=== PATIENT | female | born 1935 | race Caucasian/White ===

== ENCOUNTER 2017-08-24 12:23 | Inpatient (IN) ==
--- NOTE | 2017-08-24 13:13 | Emergency Department Note ---
Disposition Clinical Impression: Confusion Syncope Qualifiers: Syncope type: unspecified Qualified Code(s): R55 - Syncope and collapse Fall Qualifiers: Encounter type: initial encounter Qualified Code(s): W19.XXXA - Unspecified fall, initial encounter Disposition: Admitted As Inpatient Condition: Fair Referrals: Dionna Toney CNP [Primary Care Provider] - Forms: ED Satisfaction Letter Time of Disposition: 15:58 Fall HPI - General Chief Complaint: ED Fall Stated Complaint: fall Time Seen by Provider: 08/24/17 12:29 Source: patient, EMS Mode of arrival: EMS Limitations: no limitations Nursing Notes Reviewed: Yes Vital Signs Reviewed: Yes - History of Present Illness HPI Narrative: Patient presents emergency room by EMS for evaluation of a fall at home. Patient does not remember the event. She has not does remember calling EMS for transportation. She lives at home with her the is not here. She denies any headache injury or pain or symptoms at this time. EMS said that when they arrived she was awake denying any other acute symptoms or issues. The family was concerned and wanted her evaluated here in the emergency room. Patient denies any issues on arrival here Pt Subjective Complaint: fall Onset (ago): [employer] Fall From: standing Fall Witnessed: no Place Fall Occurred: home Loss of Consciousness: unsure Prolonged Down Time?: no Context: tripped/slipped Severity: none Severity scale (1-10): 0 Associated symptoms (after fall): Reports: denies - Related Data Allergies Allergy/AdvReac Type Severity Reaction Status Date / Time No Known Allergies Allergy Verified 08/24/17 12:30 All systems ED: reviewed and negative except as stated. Review of Systems: As Per HPI Constitutional: Denies: fever, chills Eyes: Denies: eye pain Cardiovascular: Denies: chest pain, palpitations, dyspnea on exertion Respiratory: Denies: cough, dyspnea, wheezes Gastrointestinal: Denies: abdominal pain, nausea, vomiting, diarrhea Genitourinary: Denies: urgency, dysuria Musculoskeletal: Denies: back pain, neck pain Neurological: Denies: headache Fall PMH - Past Medical History Medical history: Reports: diabetes, hypertension Psychiatric history: Reports: no psych history - Social History Smoking Status: Never smoker Alcohol use: Reports: none Drug use: Reports: none Physical Exam - General Limitations: altered mental status General appearance: alert - Head Head exam: atraumatic, normocephalic, normal inspection - Eye Eye exam: Present: normal appearance, PERRL, EOMI. Absent: miosis, mydriasis - ENT ENT exam: normal exam, normal oropharynx, mucous membranes moist - Neck Neck exam: Present: normal inspection, full ROM, trachea midline. Absent: tenderness, meningismus, lymphadenopathy - Chest Chest inspection: Present: normal inspection, symmetric chest wall rise. Absent : tenderness - Respiratory Respiratory exam: Present: normal lung sounds bilaterally. Absent: respiratory distress, accessory muscle use - Cardiovascular Cardiovascular exam: Present: regular rate, normal rhythm, normal heart sounds - Abdominal Exam Abdominal exam: Present: soft, Non-Tender, normal bowel sounds. Absent: tenderness, distention, guarding, rebound, rigidity, Ventura's sign, Rovsing's sign, tenderness at McBurney's Point - Extremities Exam Extremities exam: Present: normal inspection, full ROM, normal capillary refill. Absent: tenderness, pedal edema - Back Exam Back exam: Present: normal inspection, full ROM. Absent: tenderness - Neurological Exam Neurological exam: Present: alert, CN II-XII intact, normal gait, other - Skin Skin exam: Present: warm, dry, intact, normal color Course Course Narrative: Patient seen and examined the time of arrival by EMS. See history of present illness. 82-year-old female presents emergency room for evaluation of a fall at home. EMS present to the house and found the patient in the bathroom sitting on the floor but awake. Patient does not remember the event and feels like she may have passed out. She is overdoing like this before. Patient has no visible signs of trauma or injury. Vital signs throughout transported by EMS for otherwise unremarkable. Accu-Chek was 313. On arrival here the patient is alert and follows commands appropriately. She is slightly confused to time and place. Patient is able to converse and answer questions here about her name and birthdate. Repeat vital signs at presentation are otherwise stable. Accu-Chek is normal at 240. Patient's physical exam shows a well- appearing female she denies any symptoms or complaints head is atraumatic pupils are equal and reactive no visible signs of facial asymmetry. Cranial nerves II through XII are grossly intact. Patient moves the upper and lower extremities without any difficulty. There is no signs of cerebellar dysfunction or draft. Patient's oropharynx is patent trachea is midline. Lungs are clear heart is regular. No tenderness to palpation over the bilateral shoulders chest wall or abdomen. Pelvis appears to be stable no tenderness or pain in the extremities at this time. No visible signs of hematoma or injury to the scalp. Patient has no midline cervical thoracic or lumbar spine pain at this point as well. No family is with her at this time to differentiate whether the patient's chronic dementia or this is baseline for her at this point. Patient will have CT of the head as well as cervical spine completed along with screening labs including chest x-ray EKG CBC chemistry troponin and urinalysis BNP. His concerning based on the presentation for the injury and mechanism of the fall. Patient does describe that she fell secondary to tripping over a log but is difficult to trust that the patient is remembering the events appropriately considering she is not alert to time or place. We will continue to treat symptomatically here in the emergency room until family arrives. Patient does not have any visible signs of strokelike symptom at this point and is describing a mechanical fall at home. EMS discloses that there is nothing out of the ordinary at the hospital this time outside of the head to break into the bathroom and no secondary to issues with hoarding. Patient will be observed her closely and symptomatic treatment will be completed - Reevaluation(s) Reevaluation #1: Cervical spine imaging is concerning for possible right-sided pleural effusion. Because the patient's fall CT imaging the chest will be added on considering she had a negative chest x-ray this point. Patient is otherwise in no distress. Labs are still pending. Time: 13:27 Reevaluation #2: Patient's vital signs remain stable. CT of the head and neck are unremarkable. The pleural effusion that was noted on the CT scan of the neck was reviewed with myself and chest x-ray was also reviewed. There is no visible signs of pneumothorax or active pleural effusion at this point. Patient is at baseline according to the family at this time. The confusion that initially presented on arrival is seems to be resolved. Patient does have a history of cardiac arrhythmia that required defibrillator. She did have the defibrillator removed several years ago and has not had any issues. The fall was unwitnessed by the family. A lengthy discussion was had with them about the presentation context of the symptoms. Seems the patient walked into the bathroom and then fell with unknown etiology. I do not have significant trust in day description the patient had of her tripping over a carpet. I am concerned about potential other etiology causing the syncopal events here today considering she is completely amnestic to the fall and woke up on the floor up against the door. Patient otherwise has no other acute pathology this point. Labs vital signs and physical exam appear to be unchanged. Patient will be admitted for syncopal evaluation with a history of cardiac arrhythmia as well as possible stroke. We will continue to monitor here to the admission process is completed. Dr. Veliz reviewed the presentation symptoms in the case and no other recommendations at this time. Patient will be admitted for syncopal evaluation with unknown etiology. She does have a history of cardiac arrhythmia as well as unknown etiology to the fall here today. Disposition will be admission this time. We will continue monitor here in the emergency room to the admission process is completed. Family informed and they are comfortable with the projected course of care this time Time: 16:34 Vital Signs Pulse Rate 94 08/24/17 12:30 Respiratory Rate 20 08/24/17 12:30 Blood Pressure 191/101 08/24/17 12:30 O2 Sat by Pulse Oximetry 95 08/24/17 12:30 Temperature 97.9 F 08/24/17 12:31 Pulse Rate 83 08/24/17 15:30 Respiratory Rate 20 08/24/17 15:30 Blood Pressure 167/90 08/24/17 15:30 O2 Sat by Pulse Oximetry 97 08/24/17 15:30 Oxygen Delivery Oxygen Delivery Room Air Fall - MDM Narrative Medical decision making narrative: Fall, confusion - Medical Records Medical records reviewed: Yes I reviewed the patient's medical records. - Lab Data Lab results reviewed: Yes I reviewed the patient's lab results. Result diagrams: 08/24/17 13:08 08/24/17 13:08 Lab Results 08/24/17 08/24/17 08/24/17 Range/Units 13:08 13:08 13:08 WBC 5.5 (4.3-11.1) K/mcL RBC 3.44 L (3.82-4.97) M/mcL Hgb 11.1 L (11.5-15.4) g/dL Hct 34.3 L (35.3-44.9) % MCV 99.7 (83.0-100.0) fL MCH 32.3 (28.0-33.3) pg MCHC 32.4 (31.6-35.5) g/dL RDW 15.3 H (11.5-14.5) % Plt Count 187 (140-400) K/mcL MPV 10.4 (9.4-12.4) fL Immature Gran % 0.4 (0-4) % Seg Neutrophils % 80.9 % Lymphocytes % 10.2 % Monocytes % 7.6 % Eosinophils % 0.2 % Basophils % 0.7 % Neutrophils # 4.5 (1.6-8.9) K/mcL Lymphocytes # 0.6 (0.6-4.6) K/mcL Monocytes # 0.4 (0.0-1.3) K/mcL Eosinophils # 0.0 (0.0-0.6) K/mcL Basophils # 0.0 (0.0-0.2) K/mcL Nucleated RBCs/100 WBC 0.4 H (0) /100 WBC PT 12.7 H (9.4-12.1) Seconds INR 1.2 APTT 32.4 (26.0-36.0) Seconds Sodium 136 (136-145) mEq/L Potassium 3.6 (3.5-5.1) mEq/L Chloride 104 (98-107) mEq/L Carbon Dioxide 20 L (23-29) mEq/L BUN 15 (8-23) mg/dL Creatinine 0.81 (0.60-1.20) mg/dL Est GFR ( Amer) > 60 (> 60) Est GFR (Non-Af Amer) > 60 (> 60) BUN/Creatinine Ratio 19 (6-26) Glucose 300 H (70-105) mg/dL POC Glucose (70-99) mg/dL Calculated Osmolality 294 (280-300) Lactic Acid (0.5-2.2) mmol/L Calcium 8.8 (8.6-10.3) mg/dL Creatine Kinase 65 (30-223) Units/L Troponin I < 0.03 (< 0.04) ng/mL Urine Color (Yellow) Urine Clarity (Clear) Urine pH (5.0-8.0) pH Units Ur Specific [place] (1.010-1.025) Urine Protein (Neg-Trace) mg/dL Urine Glucose (UA) (Normal) mg/dL Urine Ketones (Negative) mg/dL Urine Blood (Negative) Urine Nitrite (Negative) Urine Bilirubin (Negative) Urine Urobilinogen (Normal) mg/dL Ur Leukocyte Esterase (Negative) Urine Microscopic RBC (0-3) per hpf Urine Microscopic WBC (0-3) per hpf Ur Squamous Epith Cells (None-Few) per lpf Urine Bacteria (None-Few) per hpf Hyaline Casts (None-Few) per lpf 08/24/17 08/24/17 08/24/17 Range/Units 13:08 13:20 14:25 WBC (4.3-11.1) K/mcL RBC (3.82-4.97) M/mcL Hgb (11.5-15.4) g/dL Hct (35.3-44.9) % MCV (83.0-100.0) fL MCH (28.0-33.3) pg MCHC (31.6-35.5) g/dL RDW (11.5-14.5) % Plt Count (140-400) K/mcL MPV (9.4-12.4) fL Immature Gran % (0-4) % Seg Neutrophils % % Lymphocytes % % Monocytes % % Eosinophils % % Basophils % % Neutrophils # (1.6-8.9) K/mcL Lymphocytes # (0.6-4.6) K/mcL Monocytes # (0.0-1.3) K/mcL Eosinophils # (0.0-0.6) K/mcL Basophils # (0.0-0.2) K/mcL Nucleated RBCs/100 WBC (0) /100 WBC PT (9.4-12.1) Seconds INR APTT (26.0-36.0) Seconds Sodium (136-145) mEq/L Potassium (3.5-5.1) mEq/L Chloride (98-107) mEq/L Carbon Dioxide (23-29) mEq/L BUN (8-23) mg/dL Creatinine (0.60-1.20) mg/dL Est GFR ( Amer) (> 60) Est GFR (Non-Af Amer) (> 60) BUN/Creatinine Ratio (6-26) Glucose (70-105) mg/dL POC Glucose 265 H (70-99) mg/dL Calculated Osmolality (280-300) Lactic Acid 1.6 (0.5-2.2) mmol/L Calcium (8.6-10.3) mg/dL Creatine Kinase (30-223) Units/L Troponin I (< 0.04) ng/mL Urine Color Yellow (Yellow) Urine Clarity Clear (Clear) Urine pH 6.0 (5.0-8.0) pH Units Ur Specific [place] 1.023 (1.010-1.025) Urine Protein >=300 H (Neg-Trace) mg/dL Urine Glucose (UA) >=1000 H (Normal) mg/dL Urine Ketones Trace H (Negative) mg/dL Urine Blood Trace H (Negative) Urine Nitrite Negative (Negative) Urine Bilirubin Negative (Negative) Urine Urobilinogen 4.0 H (Normal) mg/dL Ur Leukocyte Esterase Negative (Negative) Urine Microscopic RBC 3-5 H (0-3) per hpf Urine Microscopic WBC 0-3 (0-3) per hpf Ur Squamous Epith Cells Many H (None-Few) per lpf Urine Bacteria None Seen (None-Few) per hpf Hyaline Casts None Seen (None-Few) per lpf - Radiology Data Radiology results reviewed: Yes I reviewed the patient's radiology results. CT of the head and neck are unremarkable this time. Cranial pathology or cervical spine fracture. Chest x-ray does not show any acute signs of pneumothorax or pleural effusion. CT of the cervical spine did comment on possible right-sided apical pleural effusion. - EKG Data EKG attestation: Yes I reviewed and interpreted this EKG. EKG results narrative: EKG shows what appears to be sinus rhythm with first-degree heart block. Ventricular rate of 84. AL interval is greater than 200. [place] appears to be slightly leftward deviated. QRS duration of 160. QTC of 508. This is most likely accounting for where the P-wave butts up against the QRS and T wave. This is reviewed and compared to an EKG on 01/21/14 the patient does have a first-degree heart block. The morphology and intervals appear to be all chronic in nature. No acute signs of ST segment elevation or abnormality. No acute signs of WPW or Brugada syndrome.
[2017-08-24 13:26] LABS: Basophils % 0.7 %; Eosinophils % 0.2 %; Hematocrit 34.3 % (35.3-44.9); Hemoglobin 11.1 g/dL (11.5-15.4); Immature Granulocytes % 0.4 % (0-4); Lymphocytes # 0.6 K/mcL (0.6-4.6); Lymphocytes % 10.2 %; Mean Corpuscular HGB Conc 32.4 g/dL (31.6-35.5); Mean Corpuscular Hemoglobin 32.3 pg (28.0-33.3); Mean Corpuscular Volume 99.7 fL (83.0-100.0); Mean Platelet Volume 10.4 fL (9.4-12.4); Monocytes # 0.4 K/mcL (0.0-1.3); Monocytes % 7.6 %; Neutrophils # 4.5 K/mcL (1.6-8.9); Nucleated Red Blood Cells 0.4 /100 WBC (0); Platelet Count 187 K/mcL (140-400); Red Blood Count 3.44 M/mcL (3.82-4.97); Red Cell Distribution Width 15.3 % (11.5-14.5); Segmented Neutrophils % 80.9 %
[2017-08-24 13:35] LABS: INR 1.2; Prothrombin Time 12.7 Seconds (9.4-12.1)
[2017-08-24 13:38] LABS: Activated Partial Thrombo Time 32.4 Seconds (26.0-36.0)
[2017-08-24 13:44] LABS: Troponin I < 0.03 ng/mL (< 0.04)
[2017-08-24 13:52] LABS: BUN/Creatinine Ratio 19 (6-26); Blood Urea Nitrogen 15 mg/dL (8-23); Calcium 8.8 mg/dL (8.6-10.3); Carbon Dioxide 20 mEq/L (23-29); Chloride 104 mEq/L (98-107); Creatine Kinase 65 Units/L (30-223); Glucose 300 mg/dL (70-105); Osmolality,Calculated 294 (280-300); Potassium 3.6 mEq/L (3.5-5.1); Sodium 136 mEq/L (136-145); eGFR For African Americans > 60 (> 60); eGFR For Non-African Americans > 60 (> 60)
[2017-08-24 14:33] LABS: Bilirubin,Urine Negative (Negative); Blood,Urine Trace (Negative); Clarity,Urine Clear (Clear); Color,Urine Yellow (Yellow); Glucose,Urine (UA) >=1000 mg/dL (Normal); Ketones,Urine Trace mg/dL (Negative); Leukocyte Esterase,Urine Negative (Negative); Nitrite,Urine Negative (Negative); Protein,Urine >=300 mg/dL (Neg-Trace); Specific Gravity,Urine 1.023 (1.010-1.025)
[2017-08-24 14:35] LABS: Bacteria,Urine None Seen per hpf (None-Few); Hyaline Casts,Urine None Seen per lpf (None-Few); Squamous Epithelial Cell,Urine Many per lpf (None-Few); WBC,Urine 0-3 per hpf (0-3)
[2017-08-24] MEDS ORDERED: D5% in Water 1,000 ML IVC PRN (17:58)
[2017-08-24] MEDS ORDERED: Dextrose Gel 15 GM/37.5 ML TUBE PO PRN ×2 (17:58)
[2017-08-24] MEDS ORDERED: *HR* Dextrose 50 % in Water (Syg) 50 ML SYRINGE IVP PRN (17:58)
--- NOTE | 2017-08-24 18:07 | Internal Med History&Physical ---
Date of Encounter: 08/24/17 Time of Encounter: 18:06 Internal Medicine - H&P: HPI Chief complaint: syncope History of present illness: Ms. Johnson is a 82 year old female with history of diabetes, cardiomyopathy, hypertension, hyperlipidemia who presents with unwitnessed syncope event at home. She lives at home with her daughter and and is typically independent of any assistance. She was last seen normal the night before but this morning she was found down in the bathroom with a body blocking the door entrance. It was thought that this incident happened at about 10 AM in the morning. It appeared that she might have had syncopal event leading to the fall. Family had to break through the window to get the bathroom in order to get her out. On evaluation in the ED, patient was noted to be confused not knowing where she was or her home address. Reviewed echo on 06/13/17 with LVEF 25-30%. On review of history, family reports that she had a defibrillator placed previously but had been removed approximately 3 years ago for unknown reason EKG personally reviewed with rate 84, left bundle branch block unchanged from prior FINDINGS: BRAIN/VENTRICLES: There is no acute intracranial hemorrhage, mass effect or midline shift. No abnormal extra-axial fluid collection. The farnsworth-white differentiation is maintained without evidence of an acute infarct. There is no evidence of hydrocephalus. Age-appropriate atrophy and small-vessel disease ischemic changes. ORBITS: The visualized portion of the orbits demonstrate no acute abnormality. SINUSES: The visualized paranasal sinuses and mastoid air cells demonstrate no acute abnormality. Mild left maxillary thickening. SOFT TISSUES/SKULL: No acute abnormality of the visualized skull or soft tissues. CT/CT head/brain wo con IMPRESSION: No acute intracranial abnormality. Age-appropriate atrophy and small-vessel disease ischemic changes. CT/CT cervical spine wo con IMPRESSION: No acute abnormality of the cervical spine. Right-sided pleural effusion FINDINGS: Multifocal increased parenchymal markings appear to be chronic. No focal consolidation. No pleural effusion or pneumothorax. The heart is enlarged without pulmonary vascular congestion. XR/XR chest 1V portable IMPRESSION: Cardiomegaly. No focal consolidation. Past Med Surg Social Fam HX - Past Medical History Medical history: diabetes, hypertension Psychiatric history: no psych history - Past Surgical History Surgical History: cholecystectomy, hysterectomy - Social History Smoking Status: Never smoker Smokeless Tobacco Status: No Alcohol use: none Drug use: none Internal Medicine - H&P: Meds Aspirin [Lo-Dose Aspirin EC] 81 mg PO DAILY 08/24/17 [History] Carvedilol [Coreg] 25 mg PO BID 08/24/17 [History] Ezetimibe [Zetia] 10 mg PO DAILY 08/24/17 [History] Glimepiride [Amaryl] 4 mg PO BID 08/24/17 [History] Lisinopril [Zestril] 5 mg PO DAILY 08/24/17 [History] Pioglitazone HCl [Actos] 30 mg PO DAILY 08/24/17 [History] Rosuvastatin [Crestor] 20 mg PO HS 08/24/17 [History] SitaGLIPtin [Januvia] 100 mg PO DAILY 08/24/17 [History] Spironolactone [Aldactone] 25 mg PO DAILY 08/24/17 [History] Zolpidem [Ambien] 10 mg PO HS 08/24/17 [History] 3 Allergy/AdvReac Type Severity Reaction Status Date / Time No Known Allergies Allergy Verified 08/24/17 12:30 All Systems PM: A 10-system review of systems was performed and is negative for pertinent findings except as documented above in the HPI. Review of systems: ROS 14 point review of systems reviewed as best as possible given presentation. Pertinent positive or negative as per HPI or otherwise reviewed as negative - Constitutional Vitals: Temp Pulse Resp BP Pulse Ox 98.5 F 88 18 146/90 97 08/24/17 17:46 08/24/17 17:46 08/24/17 17:46 08/24/17 17:46 08/24/17 17:46 Exam: General - patient appears confused Psych - Appropriate affect/speech. No agitation Eyes - CONOR. Eye lids intact. No scleral icterus Neuro - No gross peripheral or central neuro deficits on inspection. Generalized upper and lower extremity weakness 4 minus out of 5 power Heart - Sinus. RRR. S1 and S2 present. No added HS/murmurs appreciated. No elevated JVD appreciated. Lung - Adequate air entry b/l, No crackles/wheezes appreciated GI - abdominal surgical scars. Soft, non-tender. No hepatosplenomegaly/ ascites. BS+ - No CVA/suprapubic tenderness or palpable bladder distension Skin - Intact. No rash/petechiae/ecchymosis. Warm extremities MSK - Joints with normal ROM. No joint swellings Internal Med - H&P Results - Labs CBC & Chem 7: 08/24/17 13:08 08/24/17 13:08 - Assessment and plan (1) Syncope Current Visit: Yes Status: Acute Assessment and plan: to get cardiac and neuro work up consult cards to assist with eval and optimization - reported hx of defibrillator prior due to Cardiomyopathy but this was removed ? for unknown reason ? Tele while inpatient MRI , carotid doppler US orthostat Qualifiers: Syncope type: unspecified Qualified Code(s): R55 - Syncope and collapse (2) Confusion Current Visit: Yes Status: Acute Assessment and plan: uncertain etiology check MRI brain and US doppler of carotids as w/u for RIND/TIA or occult vascular event (3) Cardiomyopathy Current Visit: Yes Status: Acute Assessment and plan: TTE 06/13/17 with LVEF 25-30% on ACEI , BB, aldactone Qualifiers: Cardiomyopathy type: other Qualified Code(s): I42.8 - Other cardiomyopathies (4) DMII (diabetes mellitus, type 2) Current Visit: Yes Status: Acute Qualifiers: Chronic kidney disease stage: stage 3 (moderate) Qualified Code(s): E11.22 - Type 2 diabetes mellitus with diabetic chronic kidney disease; N18.3 - Chronic kidney disease, stage 3 (moderate); Z79.4 - correction (current) use of insulin (5) HTN (hypertension) Current Visit: Yes Status: Acute Assessment and plan: continue cardiac meds Qualifiers: Hypertension type: essential hypertension Qualified Code(s): I10 - Essential (primary) hypertension (6) Fall Current Visit: Yes Status: Acute Assessment and plan: clinical exam w/o evidence of focal trauma PT/OT monitor and watch for further localizing symptoms Qualifiers: Encounter type: initial encounter Qualified Code(s): W19.XXXA - Unspecified fall, initial encounter - Time Spent With Patient Total time spent is greater than 50% in coordination of care (as documented) at patient's floor/unit and/or counseling patient:
--- NOTE | 2017-08-24 18:46 | Cardiology Consult Note ---
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 On appropriate medical management seems to be euvolemic on exam with no recent complaints of chest pain, shortness of breath, orthopnea, or PND. This fall was unwitnessed the patient did not suffer any injuries. Previous ICD was removed due to infection and erosion through the skin. We will discuss with family possibility of reinsertion of an ICD as this may or may not have been an event with her nonischemic cardio myopathy and ejection fraction below 35%. Initial labs unremarkable Qualifiers: Cardiomyopathy type: unspecified Qualified Code(s): I42.9 - Cardiomyopathy , unspecified Discussion w patient/family: The assessment and plan as outlined above was discussed with the patient and/or family members who expressed understanding and agreement. All questions were answered. Thank you for involving us in the care of your patient. Please call with any questions. History of Present Illness Consult date: 08/24/17 Consult reason: Fall and confusion Chief complaint: Confusion History of present illness: Ms. Johnson is a 82 year old female with history of nonischemic cardio myopathy and recent removal of her ICD due to skin erosion and infection. Her ejection fraction had previously improved to a normal. Last echocardiogram June 2017 shows an ejection fraction of 25-30%. Her last heart catheter was 2014 with minimal coronary artery disease. Currently she is hyperglycemic and confused. Patient was found behind the bathroom door presumed to be a fall with no injury sustained but unwitnessed. Patient currently alert and oriented zero, unable to explain her event. Past Med Surg Social Fam HX - Past Medical History Medical history: diabetes, hypertension Psychiatric history: no psych history - Past Surgical History Surgical History: cholecystectomy, hysterectomy - Social History Smoking Status: Never smoker Smokeless Tobacco Status: No Alcohol use: none Drug use: none Medications and Allergies Aspirin [Lo-Dose Aspirin EC] 81 mg PO DAILY 08/24/17 [History] Carvedilol [Coreg] 25 mg PO BID 08/24/17 [History] Ezetimibe [Zetia] 10 mg PO DAILY 08/24/17 [History] Glimepiride [Amaryl] 4 mg PO BID 08/24/17 [History] Lisinopril [Zestril] 5 mg PO DAILY 08/24/17 [History] Pioglitazone HCl [Actos] 30 mg PO DAILY 08/24/17 [History] Rosuvastatin [Crestor] 20 mg PO HS 08/24/17 [History] SitaGLIPtin [Januvia] 100 mg PO DAILY 08/24/17 [History] Spironolactone [Aldactone] 25 mg PO DAILY 08/24/17 [History] Zolpidem [Ambien] 10 mg PO HS 08/24/17 [History] 3 Allergy/AdvReac Type Severity Reaction Status Date / Time No Known Allergies Allergy Verified 08/24/17 12:30 All Systems Review: The remainder of the systems were reviewed and are negative Physical Examination Vital Signs, Last 4 Hours Temp Pulse Resp BP Pulse Ox 08/24/17 17:46 98.5 F 88 18 146/90 97 08/24/17 16:59 20 165/146 General: Conversant, No Apparent Distress HEENT: Atraumatic, Normocephaly, Mucus Membranes Moist Neck: No JVD, Normal carotid pulses Cardiac: Reg Rate and Rhythm, Normal S1 and S2, No Murmur Lungs: Normal Breath Sounds, No Wheeze, Rales, Rhonchi Neuro: Alert and responsive, No focal deficits noted Abdomen: Soft, Non-Tender Skin: No rashes noted on visualized skin Musculoskeletal: No Chest Wall Tenderness Extremities: No Clubbing, No Cyanosis, No Edema, Normal Pulses Results 08/24/17 13:08 08/24/17 13:08 Consult Discharge Plan - Plan Referrals: Dionna Toney CNP [Primary Care Provider] -
[2017-08-24] MEDS ORDERED: Insulin LISPRO 300 UNITS/3 ML VIAL SQ SCH (21:00)
[2017-08-25 02:24] LABS: BUN/Creatinine Ratio 20 (6-26); Blood Urea Nitrogen 13 mg/dL (8-23); Calcium 8.2 mg/dL (8.6-10.3); Carbon Dioxide 21 mEq/L (23-29); Chloride 106 mEq/L (98-107); Glucose 154 mg/dL (70-105); Magnesium 1.3 mg/dL (1.6-2.6); Osmolality,Calculated 287 (280-300); Potassium 2.7 mEq/L (3.5-5.1); Sodium 137 mEq/L (136-145); eGFR For African Americans > 60 (> 60); eGFR For Non-African Americans > 60 (> 60)
[2017-08-25 06:49] LABS: Estimated Average Glucose 177 mg/dl; Hemoglobin A1C 7.8 %
[2017-08-25] MEDS ORDERED: *HR* SitaGLIPtin 100 MG TABLET PO SCH (09:00)
[2017-08-25] MEDS: *HR* Pioglitazone 30 MG TABLET PO SCH (09:33)
[2017-08-25] MEDS: *HR* Glimepiride 4 MG TABLET PO SCH ×2 (09:33→17:11)
[2017-08-25] MEDS: Aspirin Enteric Coated 81 MG Tablet PO SCH (09:33)
[2017-08-25] MEDS: Spironolactone 25 MG TABLET PO SCH (09:35)
[2017-08-25] MEDS: Insulin LISPRO 300 UNITS/3 ML VIAL SQ SCH ×3 (09:35→17:11)
[2017-08-25] MEDS: (Ezetimibe [Zetia] 10 MG) PO SCH (09:35)
--- NOTE | 2017-08-25 10:41 | Cardiology Progress Note ---
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 TTE 06/2017 LVEF 25-30%. Severe LV systolic dysfunction appears global with atypical septal motion consistent with bundle branch block. RV is normal in size. Function appears moderately reduced. Severely dilated left atrium. Moderate MR and TR. Severe phtn. 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 Appears to be euvolemic on exam with no recent complaints of chest pain, shortness of breath, orthopnea, or PND. Continue BB, ACEi, Aldactone. Previous ICD was removed due to infection and erosion through the skin. Discussed with Dr. Krishna and family. Outpt follow-up once acute confusion/ issues resolve and can rediscuss possibility another ICD placement. Unclear if fall was a syncopal event and unclear if related to arrhythmia. Cardiology signing off. Reconsult PRN. Qualifiers: Cardiomyopathy type: unspecified Qualified Code(s): I42.9 - Cardiomyopathy , unspecified (2) Fall Current Visit: Yes Status: Acute Unclear if fall was syncopal event. Pt is confused, per family not her baseline. She is unable to recall what happened and there were no witnesses. Detailed above, hx of NICMP that has recurred. EF 25-30%. Hx of ICD removed due to infection. Unable to rule out cardiac cause of fall or possible syncope. Re-discuss ICD as outpt once acute confusion resolves. Cardiology signing off. Reconsult PRN. Qualifiers: Encounter type: initial encounter Qualified Code(s): W19.XXXA - Unspecified fall, initial encounter (3) Hypokalemia Current Visit: Yes Status: Acute K 2.7. Replace. Management per primary team. Discussion w patient/family: The assessment and plan as outlined above was discussed with the patient and/or family members who expressed understanding and agreement. All questions were answered. Thank you for involving us in the care of your patient. Please call with any questions. I will discuss all the above with Dr. Krishna and make changes as necessary. Subjective Principal diagnosis: confusion, fall Interval history: Pt denies acute complaints, still somewhat confused. Alert to person and place, not time. Denies chest pain, dizziness or dyspnea. No events on telemetry. Objective Vital Signs Temp Pulse Resp BP Pulse Ox 08/25/17 06:38 97.8 F 75 18 153/71 95 08/25/17 02:52 97.5 F L 75 16 151/76 93 08/24/17 23:50 97.5 F L 76 18 116/67 97 08/24/17 20:50 98.1 F 79 18 158/88 95 08/24/17 17:46 98.5 F 88 18 146/90 97 08/24/17 16:59 20 165/146 08/24/17 16:00 87 20 136/69 100 08/24/17 15:30 83 20 167/90 97 08/24/17 14:30 83 20 144/78 98 08/24/17 14:00 89 20 163/100 94 08/24/17 13:34 96 20 166/96 100 08/24/17 13:26 99 08/24/17 13:00 85 20 176/98 92 08/24/17 12:31 97.9 F 85 20 181/101 99 08/24/17 12:30 94 20 191/101 93 Intake and Output 08/24/17 08/25/17 08/25/17 23:59 07:59 15:59 Intake Total 30 / 30 0 / 0 Output Total 0 / 0 0 / 0 Balance 30 / 30 0 / 0 Intake: Oral 30 / 30 0 / 0 Output: Urine 0 / 0 0 / 0 Other: Stool Size Small Stool Consistency soft # Voids 1 # Urine Diapers 1 1 Weight 59.7 kg 59.8 kg Blood Glucose* 232 191 Patient Weight 08/25/17 23:59 Weight 59.8 kg General: Conversant, No Apparent Distress HEENT: Atraumatic, Normocephaly, Mucus Membranes Moist Neck: No JVD, Normal carotid pulses Cardiac: Reg Rate and Rhythm, Normal S1 and S2, No Murmur Lungs: Normal Breath Sounds, No Wheeze, Rales, Rhonchi Neuro: Alert and responsive, Other (confused) Abdomen: Soft, Non-Tender Skin: No rashes noted on visualized skin Musculoskeletal: No Chest Wall Tenderness Extremities: No Clubbing, No Cyanosis, No Edema, Normal Pulses Results 08/24/17 13:08 08/25/17 01:36 Lab Results 08/25/17 01:36 Sodium 137 Potassium 2.7 L Chloride 106 Carbon Dioxide 21 L BUN 13 Creatinine 0.65 Glucose 154 H Calcium 8.2 L Magnesium 1.3 L Short CBC 08/24/17 Range/Units 13:08 WBC 5.5 (4.3-11.1) K/mcL Hgb 11.1 L (11.5-15.4) g/dL Hct 34.3 L (35.3-44.9) % Plt Count 187 (140-400) K/mcL Neutrophils # 4.5 (1.6-8.9) K/mcL BMP 08/25/17 08/24/17 Range/Units 01:36 13:08 Sodium 137 136 (136-145) mEq/L Potassium 2.7 L 3.6 (3.5-5.1) mEq/L Chloride 106 104 (98-107) mEq/L Carbon Dioxide 21 L 20 L (23-29) mEq/L BUN 13 15 (8-23) mg/dL Creatinine 0.65 0.81 (0.60-1.20) mg/dL Glucose 154 H 300 H (70-105) mg/dL Calcium 8.2 L 8.8 (8.6-10.3) mg/dL Cardiac Enzymes 08/24/17 Range/Units 13:08 Troponin I < 0.03 (< 0.04) ng/mL Urine 08/24/17 Range/Units 14:25 Urine Color Yellow (Yellow) Urine Clarity Clear (Clear) Urine pH 6.0 (5.0-8.0) pH Units Ur Specific [place] 1.023 (1.010-1.025) Urine Protein >=300 H (Neg-Trace) mg/dL Urine Glucose (UA) >=1000 H (Normal) mg/dL Impressions Chest X-Ray 08/24/17 12:41 IMPRESSION: Cardiomegaly. No focal consolidation. D/ / Martínez Nichols / Martínez Nichols Interpreting Provider: Martínez Nichols Cervical Spine CT 08/24/17 12:42 IMPRESSION: No acute abnormality of the cervical spine. Right-sided pleural effusion D/ / Vincent Schulz MD / Vincent Schulz MD Interpreting Provider: Vincent Schulz MD Head CT 08/24/17 12:42 IMPRESSION: No acute intracranial abnormality. Age-appropriate atrophy and small-vessel disease ischemic changes. D/ / 08/24/2017 13:24:35 Jael Ayala MD / ayah Interpreting Provider: Jael Ayala MD Brain MRI 08/24/17 17:56 IMPRESSION: No acute infarct identified. D/ / Leo Tate MD / Leo Tate MD Interpreting Provider: Leo Tate MD Active Medications Aspirin (Aspirin Ec) 81 mg PO DAILY [facility] Stop: 02/24/18 09:01 Last Admin: 08/25/17 09:33 Dose: 81 mg Carvedilol (Coreg) 25 mg PO BIDWM [place] PRN Reason: Protocol Stop: 02/23/18 21:01 Last Admin: 08/25/17 09:33 Dose: 25 mg Dextrose/Water (Dextrose 50% (Syg)) 25 ml IVP AD PRN PRN Reason: Hypoglycemia Stop: 02/23/18 17:59 Glimepiride (Amaryl) 4 mg PO BIDWM [facility] Stop: 02/24/18 08:01 Last Admin: 08/25/17 09:33 Dose: 4 mg Glucagon (Glucagen) 1 mg IM ONCE PRN PRN Reason: Hypoglycemia Stop: 02/23/18 17:59 Glucose (Gluctose) 15 gm PO ONCE PRN PRN Reason: Hypoglycemia Stop: 02/23/18 17:59 Glucose (Gluctose) 30 gm PO ONCE PRN PRN Reason: Hypoglycemia Stop: 02/23/18 17:59 Dextrose (Dextrose 5%) 1,000 mls @ 100 mls/hr IVC .Q10H PRN PRN Reason: HYPOGLYCEMIA Stop: 02/23/18 17:59 Insulin Human Lispro (Humalog) 0 units SQ TIDAC [facility] PRN Reason: Protocol Stop: 02/24/18 07:31 Last Admin: 08/25/17 09:35 Dose: 4 units Insulin Human Lispro (Humalog) 0 units SQ HS [facility] PRN Reason: Protocol Stop: 02/23/18 21:01 Last Admin: 08/24/17 21:56 Dose: 3 unit Lisinopril (Zestril) 5 mg PO DAILY [facility] PRN Reason: Protocol Stop: 02/24/18 09:01 Last Admin: 08/25/17 09:34 Dose: 5 mg Pharmacy Profile Note (Patient Taking Own Medication) 0 each PO DAILY [facility] Stop: 02/24/18 09:01 Last Admin: 08/25/17 09:35 Dose: Not Given Pioglitazone HCl (Actos) 30 mg PO DAILY [facility] Stop: 02/24/18 09:01 Last Admin: 08/25/17 09:33 Dose: 30 mg Rosuvastatin Calcium (Crestor) 20 mg PO HS [facility] Stop: 02/23/18 21:01 Last Admin: 08/24/17 21:56 Dose: 20 mg Sitagliptin Phosphate (Januvia) 50 mg PO DAILY [facility] Stop: 02/24/18 09:01 Last Admin: 08/25/17 09:34 Dose: 50 mg Spironolactone (Aldactone) 25 mg PO DAILY [facility] Stop: 02/24/18 09:01 Last Admin: 08/25/17 09:35 Dose: 25 mg Zolpidem Tartrate (Ambien) 10 mg PO HS [facility] PRN Reason: Protocol Stop: 02/23/18 21:01 Last Admin: 08/24/17 21:56 Dose: 10 mg - Imaging and Cardiology Echo: report reviewed - EKG Interpretation EKG results cardiology: other (12 hr tele AVG HR 72, no significant pauses or arrhythmias noted.) Consult Discharge Plan - Plan Referrals: Dionna Toney, PRODUCT ADVISOR [Primary Care Provider] -
[2017-08-25] MEDS ORDERED: Potassium Chloride Elixir 20 MEQ/15 ML UDC PO ONE (11:58)
[2017-08-25] MEDS ORDERED: Thiamine (B-1) 100 MG in D5% in Water 50 ML IVPB STA (12:00)
--- NOTE | 2017-08-25 12:01 | Internal Med Progress Note ---
Date of Encounter: 08/25/17 Time of Encounter: 09:35 - Assessment and plan (1) Syncope Current Visit: Yes Status: Acute Qualifiers: Syncope type: unspecified Qualified Code(s): R55 - Syncope and collapse (2) Confusion Current Visit: Yes Status: Acute (3) Fall Current Visit: Yes Status: Acute Qualifiers: Encounter type: initial encounter Qualified Code(s): W19.XXXA - Unspecified fall, initial encounter (4) Cardiomyopathy Current Visit: Yes Status: Acute Qualifiers: Cardiomyopathy type: unspecified Qualified Code(s): I42.9 - Cardiomyopathy , unspecified (5) DMII (diabetes mellitus, type 2) Current Visit: Yes Status: Acute Qualifiers: Chronic kidney disease stage: stage 3 (moderate) Qualified Code(s): E11.22 - Type 2 diabetes mellitus with diabetic chronic kidney disease; N18.3 - Chronic kidney disease, stage 3 (moderate) (6) HTN (hypertension) Current Visit: Yes Status: Acute Qualifiers: Hypertension type: essential hypertension Qualified Code(s): I10 - Essential (primary) hypertension (7) Hypomagnesemia Current Visit: Yes Status: Acute (8) Hypophosphatemia Current Visit: Yes Status: Acute (9) Hypokalemia Current Visit: Yes Status: Acute - Time Spent With Patient Plan Replace electrolytes, check bladder scan rule out any urinary retention, gentle hydration, physical therapy and occupational therapy, ambulate patient. Check orthostatic blood pressure, check cortisol level and at a.m.. Monitor electrolytes, monitor for any arrhythmia overnight. Patient is on long-acting sulfonylurea, could be her syncopal episodes secondary to hypoglycemia. Avoid Glimibride on discharge May consider short-acting, patient had low appetite will try to avoid Ambien at bedtime may consider remeron to help with her sleep as well as appetite Total time spent is greater than 50% in coordination of care (as documented) at patient's floor/unit and/or counseling patient: 25 - 35 minutes - Subjective Interval history: Patient denies any chest pain or shortness of breath. Patient denies any dizziness lightheadedness. Patient denies any abdominal pain. Patient does not know she has her last bowel movement. Patient does not know what happened yesterday make her to feel down, she does not have any recollection of what happened - Constitutional Vitals: Temp Pulse Resp BP Pulse Ox 97.4 F L 71 16 167/80 96 08/25/17 11:03 08/25/17 11:03 08/25/17 11:03 08/25/17 11:03 08/25/17 11:03 General appearance: Present: no acute distress - Head Head exam: Present: atraumatic, normocephalic - Neck Neck exam general surgery: Present: supple, trachea midline. Absent: lymphadenopathy - Respiratory Respiratory exam: Present: decreased breath sounds, CTAB, prolonged expiratory phase. Absent: accessory muscle use, rales, rhonchi, wheezes - Cardiovascular Cardiovascular exam: Present: +S1, +S2. Absent: gallop, rubs, systolic murmur - Extremities Exam Extremities exam: Present: warm, radial pulses palpable and symmetrical. Absent : calf tenderness, cyanotic, pedal edema - Neurological Exam Neurological exam: Present: CN II-XII intact, no focal deficits. Absent: pronater drift, facial droop, speech deficit Internal Medicine: Result - Labs CBC & Chem 7: 08/24/17 13:08 08/25/17 01:36 Labs: BMP 08/25/17 01:36 Sodium 137 Potassium 2.7 L Chloride 106 Carbon Dioxide 21 L BUN 13 Creatinine 0.65 Glucose 154 H Calcium 8.2 L - ABG Interpretation ABG results: PT/INR, D-dimer PT 12.7 Seconds (9.4-12.1) H 08/24/17 13:08 - Impressions Impressions Brain MRI 08/24/17 17:56 IMPRESSION: No acute infarct identified. D/ / Leo Tate MD / Leo Tate MD Interpreting Provider: Leo Tate MD Consult Discharge Plan - Plan Referrals: Dionna Toney, SH[employer]VER [Primary Care Provider] -
[2017-08-25] MEDS: *HR* Enoxaparin 40 MG/0.4 ML SYRINGE SQ SCH (13:24)
[2017-08-25] MEDS: Mirtazapine 15 MG TABLET PO SCH (22:36)
[2017-08-25] MEDS: Sennosides/Docusate Sodium TABLET PO SCH (22:36)
[2017-08-26 05:00] LABS: Basophils % 0.4 %; Eosinophils # 0.1 K/mcL (0.0-0.6); Eosinophils % 1.1 %; Hematocrit 33.4 % (35.3-44.9); Hemoglobin 10.8 g/dL (11.5-15.4); Immature Granulocytes % 0.2 % (0-4); Lymphocytes # 0.5 K/mcL (0.6-4.6); Lymphocytes % 10.2 %; Mean Corpuscular HGB Conc 32.3 g/dL (31.6-35.5); Mean Corpuscular Hemoglobin 32.6 pg (28.0-33.3); Mean Corpuscular Volume 100.9 fL (83.0-100.0); Mean Platelet Volume 10.5 fL (9.4-12.4); Monocytes # 0.5 K/mcL (0.0-1.3); Neutrophils # 3.5 K/mcL (1.6-8.9); Nucleated Red Blood Cells 0.4 /100 WBC (0); Platelet Count 153 K/mcL (140-400); Red Blood Count 3.31 M/mcL (3.82-4.97); Red Cell Distribution Width 15.8 % (11.5-14.5); Segmented Neutrophils % 78.1 %
[2017-08-26 05:35] LABS: BUN/Creatinine Ratio 17 (6-26); Blood Urea Nitrogen 13 mg/dL (8-23); Calcium 8.5 mg/dL (8.6-10.3); Carbon Dioxide 23 mEq/L (23-29); Chloride 109 mEq/L (98-107); Glucose 162 mg/dL (70-105); Magnesium 1.8 mg/dL (1.6-2.6); Osmolality,Calculated 294 (280-300); Phosphorous 2.4 mg/dL (2.7-4.5); Potassium 3.5 mEq/L (3.5-5.1); Sodium 140 mEq/L (136-145); eGFR For African Americans > 60 (> 60); eGFR For Non-African Americans > 60 (> 60)
[2017-08-26] MEDS: *HR* Enoxaparin 40 MG/0.4 ML SYRINGE SQ SCH (05:59)
[2017-08-26] MEDS: Insulin LISPRO 300 UNITS/3 ML VIAL SQ SCH ×3 (07:24→16:51)
[2017-08-26] MEDS: *HR* Metformin 850 MG TABLET PO SCH ×2 (08:49→16:56)
[2017-08-26] MEDS: *HR* Pioglitazone 30 MG TABLET PO SCH (08:49)
[2017-08-26] MEDS: Spironolactone 25 MG TABLET PO SCH (08:49)
[2017-08-26] MEDS: Sennosides/Docusate Sodium TABLET PO SCH ×2 (08:49→20:16)
[2017-08-26] MEDS: Aspirin Enteric Coated 81 MG Tablet PO SCH (08:50)
[2017-08-26] MEDS: Thiamine (B-1) 100 MG TABLET PO SCH (08:50)
[2017-08-26] MEDS: (Ezetimibe [Zetia] 10 MG) PO SCH (08:51)
[2017-08-26] MEDS ORDERED: *HR* SitaGLIPtin 100 MG TABLET PO SCH (09:00)
[2017-08-26] MEDS: *HR* GlipiZIDE 5 MG TABLET PO SCH (09:07)
--- NOTE | 2017-08-26 10:48 | Internal Med Progress Note ---
Date of Encounter: 08/26/17 Time of Encounter: 08:40 - Assessment and plan (1) Syncope Current Visit: Yes Status: Acute Assessment and plan: Could be possible secondary to hypoglycemia, could be possible secondary to orthostatic hypotension, cannot rule out arrhythmia with history of systolic heart failure, discussed with cardiology team recommended event monitor, discussed with staff that they cannot do it until tomorrow, discussed with family family want the patient to have event monitor before discharge Qualifiers: Syncope type: unspecified Qualified Code(s): R55 - Syncope and collapse (2) Confusion Current Visit: Yes Status: Resolved (3) Fall Current Visit: Yes Status: Acute Assessment and plan: Physical therapy and occupational therapy, add BETSY hose lower extremity to help with her orthostatic home health on discharge for PTOT at home Qualifiers: Encounter type: initial encounter Qualified Code(s): W19.XXXA - Unspecified fall, initial encounter (4) Cardiomyopathy Current Visit: Yes Status: Acute Assessment and plan: Based on echo done on June 2017 LVEF 25-30%. Severe LV systolic dysfunction appears global with atypical septal motion consistent with bundle branch block. Indeterminate diastolic function. RV is normal in size. Function appears moderately reduced. Severely dilated left atrium. Moderate mitral regurgitation. Moderate tricuspid regurgitation. Severe pulmonary hypertension Now euvolemic. Qualifiers: Cardiomyopathy type: unspecified Qualified Code(s): I42.9 - Cardiomyopathy , unspecified (5) DMII (diabetes mellitus, type 2) Current Visit: Yes Status: Acute Qualifiers: Chronic kidney disease stage: stage 3 (moderate) Qualified Code(s): E11.22 - Type 2 diabetes mellitus with diabetic chronic kidney disease; N18.3 - Chronic kidney disease, stage 3 (moderate) (6) HTN (hypertension) Current Visit: Yes Status: Acute Qualifiers: Hypertension type: essential hypertension Qualified Code(s): I10 - Essential (primary) hypertension (7) Hypomagnesemia Current Visit: Yes Status: Acute (8) Hypophosphatemia Current Visit: Yes Status: Acute (9) Hypokalemia Current Visit: Yes Status: Resolved (10) Iron deficiency anemia Current Visit: Yes Status: Acute Assessment and plan: Add iron supplement Qualifiers: Iron deficiency anemia type: unspecified iron deficiency Qualified Code(s) : D50.9 - Iron deficiency anemia, unspecified - Time Spent With Patient Replace all electrolytes per protocol, continue monitoring orthostatic, ambulate patient, BETSY mcdermott lower extremities, possible discharge tomorrow after placing an event monitor otal time spent is greater than 50% in coordination of care (as documented) at patient's floor/unit and/or counseling patient: Greater than 35 minutes - Subjective Interval history: Patient is more alert today, patient denies any chest pain or shortness of breath, she denies any nausea vomiting, change in hair or static blood pressure systolic dropped almost 20 with sitting. History of CHF with status post AICD and AICD removal in the past secondary to infection, patient denies any palpitation or history of palpitation recently - Constitutional Vitals: Temp Pulse Resp BP Pulse Ox 97.6 F 71 16 155/91 98 08/26/17 06:55 08/26/17 06:55 08/26/17 06:55 08/26/17 06:55 08/26/17 06:55 General appearance: Present: no acute distress - Head Head exam: Present: atraumatic, normocephalic - Neck Neck exam general surgery: Present: supple, trachea midline. Absent: lymphadenopathy - Respiratory Respiratory exam: Present: CTAB. Absent: accessory muscle use, rales, rhonchi, wheezes - Cardiovascular Cardiovascular exam: Present: RRR, +S1, +S2, systolic murmur. Absent: diastolic murmur, gallop, rubs - Extremities Exam Extremities exam: Present: warm, radial pulses palpable and symmetrical. Absent : calf tenderness, cyanotic, pedal edema - Neurological Exam Neurological exam: Present: CN II-XII intact, oriented X3, no focal deficits. Absent: pronater drift, facial droop, speech deficit Internal Medicine: Result - Labs CBC & Chem 7: 08/26/17 04:11 08/26/17 04:11 Labs: Short CBC 08/26/17 Range/Units 04:11 WBC 4.5 (4.3-11.1) K/mcL Hgb 10.8 L (11.5-15.4) g/dL Hct 33.4 L (35.3-44.9) % Plt Count 153 (140-400) K/mcL Neutrophils # 3.5 (1.6-8.9) K/mcL BMP 08/26/17 04:11 Sodium 140 Potassium 3.5 Chloride 109 H Carbon Dioxide 23 BUN 13 Creatinine 0.75 Glucose 162 H Calcium 8.5 L - ABG Interpretation ABG results: PT/INR, D-dimer PT 12.7 Seconds (9.4-12.1) H 08/24/17 13:08 Consult Discharge Plan - Plan Referrals: Dionna Toney, CARLY [Primary Care Provider] -
[2017-08-26] MEDS: Cyanocobalamin (B-12) 1,000 MCG/ML VIAL IM SCH (11:16)
[2017-08-26] MEDS: Mirtazapine 15 MG TABLET PO SCH (20:16)
[2017-08-27] MEDS: *HR* Enoxaparin 40 MG/0.4 ML SYRINGE SQ SCH (05:12)
--- NOTE | 2017-08-27 08:07 | Discharge Summary ---
Orders not resulted at time of discharge: Pending orders 08/27/17 06:34 ECG event monitor 4 weeks [ECG] Routine Date of Encounter: 08/27/17 - Discharge Diagnosis (1) Syncope Status: Acute Qualifiers: Syncope type: unspecified Qualified Code(s): R55 - Syncope and collapse (2) Confusion Status: Resolved (3) Fall Status: Acute Qualifiers: Encounter type: initial encounter Qualified Code(s): W19.XXXA - Unspecified fall, initial encounter (4) Cardiomyopathy Status: Acute Qualifiers: Cardiomyopathy type: unspecified Qualified Code(s): I42.9 - Cardiomyopathy , unspecified (5) DMII (diabetes mellitus, type 2) Status: Acute Qualifiers: Chronic kidney disease stage: stage 3 (moderate) (6) HTN (hypertension) Status: Acute Qualifiers: Hypertension type: essential hypertension Qualified Code(s): I10 - Essential (primary) hypertension (7) Hypomagnesemia Status: Acute Code(s): E83.42 - Hypomagnesemia SNOMED Code(s): 183344112 (8) Hypophosphatemia Status: Acute Code(s): E83.39 - Other disorders of phosphorus metabolism SNOMED Code(s): 3654873 (9) Hypokalemia Status: Resolved Code(s): E87.6 - Hypokalemia SNOMED Code(s): 79690849 (10) Iron deficiency anemia Status: Acute Qualifiers: Iron deficiency anemia type: unspecified iron deficiency Qualified Code(s) : D50.9 - Iron deficiency anemia, unspecified Hospital course: Ms. Johnson is a 82 year old female - Time Spent with Patient Total time spent providing and/or coordinating discharge services: - Discharge Medications Prescriptions: Cyanocobalamin/Cobamamide [B-12 5,000 Mcg Sublingual Tab] 1 each SL DAILY #90 tab.subl Ergocalciferol (VITAMIN D2) [Drisdol (50,000 Unit)] 50,000 unit PO QWEEK #15 capsule Ferrous Sulfate 325 mg PO DAILY #90 tablet glipiZIDE [Glucotrol] 5 mg PO BIDWM #60 tablet metFORMIN [Glucophage] 850 mg PO BIDWM #180 tablet Mirtazapine [Remeron] 7.5 mg PO HS #30 tablet Phos-NaK [Neutra-Phos] 1 each PO DAILY #15 powd.pack Thiamine (B-1) [Vitamin B-1] 200 mg PO DAILY #180 tablet Home Medications: Aspirin [Lo-Dose Aspirin EC] 81 mg PO DAILY 08/24/17 [History] Carvedilol [Coreg] 25 mg PO BID 08/24/17 [History] Ezetimibe [Zetia] 10 mg PO DAILY 08/24/17 [History] Lisinopril [Zestril] 5 mg PO DAILY 08/24/17 [History] Rosuvastatin [Crestor] 20 mg PO HS 08/24/17 [History] SitaGLIPtin [Januvia] 100 mg PO DAILY 08/24/17 [History] Spironolactone [Aldactone] 25 mg PO DAILY 08/24/17 [History] Cyanocobalamin/Cobamamide [B-12 5,000 Mcg Sublingual Tab] 1 each SL DAILY #90 tab.subl 08/27/17 [Rx] Ergocalciferol (VITAMIN D2) [Drisdol (50,000 Unit)] 50,000 unit PO QWEEK #15 capsule 08/27/17 [Rx] Ferrous Sulfate 325 mg PO DAILY #90 tablet 08/27/17 [Rx] Mirtazapine [Remeron] 7.5 mg PO HS #30 tablet 08/27/17 [Rx] Phos-NaK [Neutra-Phos] 1 each PO DAILY #15 powd.pack 08/27/17 [Rx] Sennosides/Docusate Sodium [Senna Plus] 1 each PO BID tablet 08/27/17 [Rx] Thiamine (B-1) [Vitamin B-1] 200 mg PO DAILY #180 tablet 08/27/17 [Rx] glipiZIDE [Glucotrol] 5 mg PO BIDWM #60 tablet 08/27/17 [Rx] metFORMIN [Glucophage] 850 mg PO BIDWM #180 tablet 08/27/17 [Rx] Allergies/Adverse Reactions: 3 Allergy/AdvReac Type Severity Reaction Status Date / Time No Known Allergies Allergy Verified 08/24/17 12:30 Date of admission: 08/26/17 17:45 Primary care physician: Dionna Toney CNP - Constitutional Vitals: Temp Pulse Resp BP Pulse Ox 97.9 F 75 14 157/79 99 08/27/17 06:56 08/27/17 06:56 08/27/17 06:56 08/27/17 06:56 08/27/17 06:56 General appearance: Present: no acute distress - Patient Status Condition: Fair - Discharge Instructions Instructions: Holter Monitoring (DC), Syncope (DC) Follow Up With: Adri Liu MD [Partnered Physician] - 08/30/17 3:00 pm - VTE Documentation of Mechanical Device: Graduated compression elastic hosiery
[2017-08-27] MEDS: Sennosides/Docusate Sodium TABLET PO SCH (08:15)
[2017-08-27] MEDS: *HR* Pioglitazone 30 MG TABLET PO SCH (08:15)
[2017-08-27] MEDS: Cyanocobalamin (B-12) 1,000 MCG/ML VIAL IM SCH (08:15)
[2017-08-27] MEDS: Spironolactone 25 MG TABLET PO SCH (08:15)
[2017-08-27] MEDS: Insulin LISPRO 300 UNITS/3 ML VIAL SQ SCH ×2 (08:16→12:59)
[2017-08-27] MEDS: *HR* GlipiZIDE 5 MG TABLET PO SCH (08:16)
[2017-08-27] MEDS: *HR* Metformin 850 MG TABLET PO SCH (08:16)
[2017-08-27] MEDS: Aspirin Enteric Coated 81 MG Tablet PO SCH (08:16)
[2017-08-27] MEDS: Thiamine (B-1) 100 MG TABLET PO SCH (08:16)
[2017-08-27] MEDS: (Ezetimibe [Zetia] 10 MG) PO SCH (08:17)
[2017-08-27] MEDS ORDERED: *HR* SitaGLIPtin 25 MG TABLET PO SCH (09:00)
--- NOTE | 2017-08-27 09:11 | Electrocardiograph Report ---
[address] [place] [address] Test Date: 2017-08-24 Pat Name: Nancy Johnson Department: 103 Room: 3A Gender: F [employer] Operator: : 1935 Requested By: Eitan Cortez Order Number: [id number] Reading MD: Adilson Claros Measurements Intervals [place] Rate: 84 P: IA: 0 QRS: -27 QRSD: 160 T: 117 QT: 467 QTc: 508 Interpretive Statements SINUS RHYTHM W PVCS LEFT BUNDLE BRANCH BLOCK Electronically Signed On 08-27-2017 9:09:42 EDT by Adilson Claros
[2017-08-27 09:52] VITALS: BP 131/81
--- NOTE | 2017-08-27 15:13 | Physician Discharge Referral ---
Home Health/Hosp Referral Info Transfer to: Home Health (Need to close monitoring of her blood sugar, blood sugar record need to be reported to family doctor) Provider in Charge Post Discharge: PCP - Diagnosis (1) Syncope Priority: Primary Status: Acute (2) Confusion Priority: Primary Status: Resolved (3) Fall Priority: Primary Status: Acute (4) Cardiomyopathy Priority: Secondary Status: Acute (5) DMII (diabetes mellitus, type 2) Priority: Secondary Status: Acute (6) HTN (hypertension) Priority: Secondary Status: Acute (7) Hypomagnesemia Priority: Secondary Status: Acute (8) Hypophosphatemia Priority: Secondary Status: Acute (9) Hypokalemia Priority: Secondary Status: Resolved (10) Iron deficiency anemia Priority: Secondary Status: Acute (11) Vitamin B12 deficiency Priority: Secondary Status: Acute - Respiratory Orders Smoking Cessation: Smoking cessation has been advised. For more information, call the [place] Tobacco Quit Line at 2-878-ITQI-NOW. - Diet/Nutrition Diet/Nutrition Orders: Cardiac - Activity Activity Orders: Up ad chiquis - Services Needed Following services are medically necessary services: Nursing - Transfer Medications Prescriptions: Cyanocobalamin/Cobamamide [B-12 5,000 Mcg Sublingual Tab] 1 each SL DAILY #90 tab.subl Ergocalciferol (VITAMIN D2) [Drisdol (50,000 Unit)] 50,000 unit PO QWEEK #15 capsule Ferrous Sulfate 325 mg PO DAILY #90 tablet glipiZIDE [Glucotrol] 5 mg PO BIDWM #60 tablet Mirtazapine [Remeron] 7.5 mg PO HS #30 tablet Phos-NaK [Neutra-Phos] 1 each PO DAILY #15 powd.pack Thiamine (B-1) [Vitamin B-1] 200 mg PO DAILY #180 tablet Home Medications: Aspirin [Lo-Dose Aspirin EC] 81 mg PO DAILY 08/24/17 [History] Carvedilol [Coreg] 25 mg PO BID 08/24/17 [History] Ezetimibe [Zetia] 10 mg PO DAILY 08/24/17 [History] Lisinopril [Zestril] 5 mg PO DAILY 08/24/17 [History] Rosuvastatin [Crestor] 20 mg PO HS 08/24/17 [History] SitaGLIPtin [Januvia] 100 mg PO DAILY 08/24/17 [History] Spironolactone [Aldactone] 25 mg PO DAILY 08/24/17 [History] Cyanocobalamin/Cobamamide [B-12 5,000 Mcg Sublingual Tab] 1 each SL DAILY #90 tab.subl 08/27/17 [Rx] Ergocalciferol (VITAMIN D2) [Drisdol (50,000 Unit)] 50,000 unit PO QWEEK #15 capsule 08/27/17 [Rx] Ferrous Sulfate 325 mg PO DAILY #90 tablet 08/27/17 [Rx] Mirtazapine [Remeron] 7.5 mg PO HS #30 tablet 08/27/17 [Rx] Phos-NaK [Neutra-Phos] 1 each PO DAILY #15 powd.pack 08/27/17 [Rx] Sennosides/Docusate Sodium [Senna Plus] 1 each PO BID tablet 08/27/17 [Rx] Thiamine (B-1) [Vitamin B-1] 200 mg PO DAILY #180 tablet 08/27/17 [Rx] glipiZIDE [Glucotrol] 5 mg PO BIDWM #60 tablet 08/27/17 [Rx] metFORMIN [Glucophage] 850 mg PO BIDWM #180 tablet 08/27/17 [Rx] Allergies/Adverse Reactions: 3 Allergy/AdvReac Type Severity Reaction Status Date / Time No Known Allergies Allergy Verified 08/24/17 12:30 Certification: Further, I certify that my clinical findings support that this patient is homebound (i.e. absences from home require considerable and taxing effort and are for medical reasons or taoist services or infrequently or short duration when for other reasons) because: Homebound Reason: Altered mental status requiring supervision when leaving home (Patient was admitted for altered mental status, need further monitoring of her blood sugar blood pressure for next week, home health for 1 week for nursing) Attestation: My signature below is to certify that this patient is under my care and that I, or nurse practitioner, or a physician's virtual assistant for advertisers working with me, has a face-to -face encounter with this patient.
== END 2017-08-27 16:03 | disposition home health service (06) | DRG 312 ==
LOC: EMEROO 12:23 → 3ANU 12:23
PROVIDERS: ADMIT Family Medicine; ATTEND Family Medicine

== ENCOUNTER 2017-12-26 10:50 | Observation (INO) ==
--- NOTE | 2017-12-26 10:55 | Emergency Department Note ---
Disposition Clinical Impression: Petechiae, Pancytopenia Disposition: Admitted As Inpatient Condition: Good Referrals: Adri Liu MD [Primary Care Provider] - Time of Disposition: 13:27 General Adult HPI - General Chief complaint: ED Recheck/Abnormal Lab/Rx Stated complaint: abnormal lab Time Seen by Provider: 12/26/17 10:54 Nursing Notes Reviewed: Yes Vital Signs Reviewed: Yes - History of Present Illness HPI Narrative: 82-year-old female presents from [facility] for repeat evaluation of a rash on her lower extremities that is not extended up to her lower abdomen. This began 4-5 days ago. Patient has no other complaints. Patient was treated recently for UTI with an unknown antibiotic. She presents with her [id number] and son in law bedside. Patient was seen and evaluated in this emergency department last night and she and her biological daughter left AGAINST MEDICAL ADVICE. Admission with consultation to hematology was recommended. Patient refused admission as this had happened 3 -4 years ago and went away on its own after several days. Unknown cause. Whetibmz-zt-lcc suspects she was treated with steroids at that time. Pztvmybi-cc-mee also would like to speak with social media coordinator. The physician at [facility] has concerns that the patient is not able to make her own medical decisions has recommended that the aatupznv-od-eus become medical power of workers compensation attorney/guardianship. ROS: Positive: As above Negative: Fever, chills, nausea, vomiting, chest pains, palpitations, unusual back pain, abdominal pain, melena, hematochezia, vertigo, confusion, numbness, tingling, weakness, falls - Related Data Home Medications Medication Instructions Recorded Confirmed Aspirin [Lo-Dose Aspirin EC] 81 mg PO DAILY 08/24/17 12/26/17 Carvedilol [Coreg] 25 mg PO BID 08/24/17 12/26/17 Ezetimibe [Zetia] 10 mg PO DAILY 08/24/17 12/26/17 Lisinopril [Zestril] 5 mg PO DAILY 08/24/17 12/26/17 SitaGLIPtin [Januvia] 100 mg PO DAILY 08/24/17 12/26/17 Spironolactone [Aldactone] 25 mg PO DAILY 08/24/17 12/26/17 Atorvastatin [Lipitor] 40 mg PO HS 12/26/17 12/26/17 Furosemide [Lasix] 20 mg PO DAILY 12/26/17 12/26/17 Insulin Glargine,Hum.rec.anlog 17 unit SQ QAM 12/26/17 12/26/17 [Basaglar Kwikpen U-100] Insulin Glargine,Hum.rec.anlog 20 unit SQ HS 12/26/17 12/26/17 [Basaglar Kwikpen U-100] Insulin Regular, Human [Novolin R] 5 unit SQ TID 12/26/17 12/26/17 Metformin HCl 2,000 mg PO QPM 12/26/17 12/26/17 Previous Rx's Medication Instructions Recorded Cyanocobalamin/Cobamamide [B-12 1 each SL DAILY #90 tab.subl 08/27/17 5,000 Mcg Sublingual Tab] Ergocalciferol (VITAMIN D2) 50,000 unit PO QWEEK #15 capsule 08/27/17 [Drisdol (50,000 Unit)] Ferrous Sulfate 325 mg PO DAILY #90 tablet 08/27/17 Phos-NaK [Neutra-Phos] 1 each PO DAILY #15 powd.pack 08/27/17 Sennosides/Docusate Sodium [Senna 1 each PO BID tablet 08/27/17 Plus] Thiamine (B-1) [Vitamin B-1] 200 mg PO DAILY #180 tablet 08/27/17 Allergies Allergy/AdvReac Type Severity Reaction Status Date / Time No Known Allergies Allergy Verified 08/24/17 12:30 All systems ED: reviewed and negative except as stated. Review of Systems: As Per HPI Past Medical History - Past Medical History Attestation: Yes The following information was validated with the patient. Source: patient Medical history: Reports: diabetes, hypertension Surgical history: Reports: cholecystectomy, hysterectomy Psychiatric history: Reports: no psych history - Social History Smoking Status: Never smoker Smokeless Tobacco Status: No Alcohol use: Reports: none Drug use: Reports: none Physical Exam Vital Signs Reviewed General: Patient is alert, oriented, and in no acute distress. Head: atraumatic, normocephalic Eye: normal appearance, EOMI, no scleral icterus, no conjunctival injection ENT: mucous membranes moist, normal external ear exam. Small sparse petechiae on left intraoral mucosa. Soft and hard pallate obscured by upper denture. Neck: normal inspection, trachea midline, full ROM Chest: normal inspection, symmetric chest rise Respiratory: Good respiratory effort. Bilateral breath sounds are clear without wheezing, crackles, or rhonchi. Cardiovascular: Regular rate and rhythm. No clicks, rubs, gallops, or murmors. Normal heart sounds. Abdomen: Bowel sounds present normoactive x-4 quadrants. Abdomen is soft, nondistended, and nontender. No guarding or rebound. No organomegaly noted. Evidence of midline abdominal incision with nontender incisional hernia. Musculoskeletal: Spontaneously moving all extremities. Skin: warm, dry, intact. Nonblanching flat petechial rash present from ankles to lower abdomen. Neuro: Alert and oriented x4. Sensation light touch intact. Psych: Patient's affect is appropriate for situation. Course Course Narrative: Patient is agreeable to admission on this emergency department visit today. Lab work from last night compared to repeat lab work this morning as seizure mcc shows decrease in hemoglobin. We will again repeat lab work. Once return, will consult hematology then admit to hospitalist service. Called [facility]. Patient was treted with cephelexan 1g BID; last dose Nov. 13:10 Discussed the patient with heme/onc. Concern for potential myelodysplastic syndrome. They recommend admission to hospitalist with Heme/Onc following. Discussed the above with the hospitalist. He agrees to accept the patient with heme/onc following. Vital Signs Temperature 97.9 F 12/26/17 10:55 Pulse Rate 74 12/26/17 10:55 Respiratory Rate 16 12/26/17 10:55 Blood Pressure 123/66 12/26/17 10:55 O2 Sat by Pulse Oximetry 98 12/26/17 10:55 Temperature 97.5 F L 12/26/17 14:30 Pulse Rate 64 12/26/17 14:30 Respiratory Rate 15 12/26/17 14:30 Blood Pressure 112/45 12/26/17 14:30 O2 Sat by Pulse Oximetry 100 12/26/17 14:30 Oxygen Delivery Oxygen Delivery Room Air Medical Decision Making - Lab Data Result diagrams: 12/26/17 11:13 12/26/17 11:13 Lab Results 12/26/17 12/26/17 12/26/17 Range/Units 11:13 11:13 11:13 WBC 4.2 L (4.3-11.1) K/mcL RBC 3.08 L (3.82-4.97) M/mcL Hgb 9.5 L (11.5-15.4) g/dL Hct 28.8 L (35.3-44.9) % MCV 93.5 (83.0-100.0) fL MCH 30.8 (28.0-33.3) pg MCHC 33.0 (31.6-35.5) g/dL RDW 13.8 (11.5-14.5) % Plt Count 120 L (140-400) K/mcL MPV 9.1 L (9.4-12.4) fL Immature Gran % 0.7 (0-4) % Seg Neutrophils % 67.5 % Lymphocytes % 21.0 % Monocytes % 9.7 % Eosinophils % 0.9 % Basophils % 0.2 % Neutrophils # 2.8 (1.6-8.9) K/mcL Lymphocytes # 0.9 (0.6-4.6) K/mcL Monocytes # 0.4 (0.0-1.3) K/mcL Eosinophils # 0.0 (0.0-0.6) K/mcL Basophils # 0.0 (0.0-0.2) K/mcL Platelet Estimate Slight Decrease L (Normal) PT 10.1 (9.4-12.1) Seconds INR 0.9 Fibrinogen 342 (169-393) mg/dL Sodium 130 L (136-145) mEq/L Potassium 5.1 (3.5-5.1) mEq/L Chloride 108 H (98-107) mEq/L Carbon Dioxide 16 L (23-29) mEq/L BUN 50 H (8-23) mg/dL Creatinine 1.53 H (0.60-1.20) mg/dL Est GFR ( Amer) 39 L (> 60) Est GFR (Non-Af Amer) 33 L (> 60) BUN/Creatinine Ratio 33 H (6-26) Glucose 182 H (70-105) mg/dL Calculated Osmolality 288 (280-300) Calcium 8.1 L (8.6-10.3) mg/dL Total Bilirubin (0.3-1.0) mg/dL Direct Bilirubin (0.0-0.2) mg/dL Indirect Bilirubin (0.0-1.2) mg/dL AST (13-39) Units/L ALT (7-52) Units/L Alkaline Phosphatase (34-104) Units/L Serum Total Protein (6.4-8.9) g/dL Albumin (3.5-5.7) g/dL Globulin (2.4-3.5) g/dL Albumin/Globulin Ratio (1.1-2.2) Blood Type Antibody Screen ANNABEL, Poly Interpret 12/26/17 12/26/17 Range/Units 11:13 11:13 WBC (4.3-11.1) K/mcL RBC (3.82-4.97) M/mcL Hgb (11.5-15.4) g/dL Hct (35.3-44.9) % MCV (83.0-100.0) fL MCH (28.0-33.3) pg MCHC (31.6-35.5) g/dL RDW (11.5-14.5) % Plt Count (140-400) K/mcL MPV (9.4-12.4) fL Immature Gran % (0-4) % Seg Neutrophils % % Lymphocytes % % Monocytes % % Eosinophils % % Basophils % % Neutrophils # (1.6-8.9) K/mcL Lymphocytes # (0.6-4.6) K/mcL Monocytes # (0.0-1.3) K/mcL Eosinophils # (0.0-0.6) K/mcL Basophils # (0.0-0.2) K/mcL Platelet Estimate (Normal) PT (9.4-12.1) Seconds INR Fibrinogen (169-393) mg/dL Sodium (136-145) mEq/L Potassium (3.5-5.1) mEq/L Chloride (98-107) mEq/L Carbon Dioxide (23-29) mEq/L BUN (8-23) mg/dL Creatinine (0.60-1.20) mg/dL Est GFR ( Amer) (> 60) Est GFR (Non-Af Amer) (> 60) BUN/Creatinine Ratio (6-26) Glucose (70-105) mg/dL Calculated Osmolality (280-300) Calcium (8.6-10.3) mg/dL Total Bilirubin 0.3 (0.3-1.0) mg/dL Direct Bilirubin 0.1 (0.0-0.2) mg/dL Indirect Bilirubin 0.2 (0.0-1.2) mg/dL AST 55 H (13-39) Units/L ALT 117 H (7-52) Units/L Alkaline Phosphatase 110 H (34-104) Units/L Serum Total Protein 5.9 L (6.4-8.9) g/dL Albumin 3.3 L (3.5-5.7) g/dL Globulin 2.6 (2.4-3.5) g/dL Albumin/Globulin Ratio 1.3 (1.1-2.2) Blood Type O POSITIVE Antibody Screen NEGATIVE ANNABEL, Poly Interpret NEG
[2017-12-26 11:45] LABS: Basophils % 0.2 %; Eosinophils % 0.9 %; Hematocrit 28.8 % (35.3-44.9); Hemoglobin 9.5 g/dL (11.5-15.4); Immature Granulocytes % 0.7 % (0-4); Lymphocytes # 0.9 K/mcL (0.6-4.6); Mean Corpuscular Hemoglobin 30.8 pg (28.0-33.3); Mean Corpuscular Volume 93.5 fL (83.0-100.0); Mean Platelet Volume 9.1 fL (9.4-12.4); Monocytes # 0.4 K/mcL (0.0-1.3); Monocytes % 9.7 %; Platelet Count 120 K/mcL (140-400); Red Blood Count 3.08 M/mcL (3.82-4.97); Red Cell Distribution Width 13.8 % (11.5-14.5); Segmented Neutrophils % 67.5 %
[2017-12-26 11:50] LABS: Neutrophils # 2.8 K/mcL (1.6-8.9)
--- NOTE | 2017-12-26 11:53 | Emergency Department Note ---
Disposition Clinical Impression: Petechiae, Pancytopenia Disposition: Admitted As Inpatient Condition: Good General Adult HPI - General Chief complaint: ED Recheck/Abnormal Lab/Rx Stated complaint: abnormal lab Time Seen by Provider: 12/26/17 10:54 Source: patient, EMS Limitations: no limitations - History of Present Illness Pain Scale: 0 - Related Data Home Medications Medication Instructions Recorded Confirmed Aspirin [Lo-Dose Aspirin EC] 81 mg PO DAILY 08/24/17 12/26/17 Carvedilol [Coreg] 25 mg PO BID 08/24/17 12/26/17 Ezetimibe [Zetia] 10 mg PO DAILY 08/24/17 12/26/17 Lisinopril [Zestril] 5 mg PO DAILY 08/24/17 12/26/17 SitaGLIPtin [Januvia] 100 mg PO DAILY 08/24/17 12/26/17 Spironolactone [Aldactone] 25 mg PO DAILY 08/24/17 12/26/17 Atorvastatin [Lipitor] 40 mg PO HS 12/26/17 12/26/17 Furosemide [Lasix] 20 mg PO DAILY 12/26/17 12/26/17 Insulin Glargine,Hum.rec.anlog 17 unit SQ QAM 12/26/17 12/26/17 [Basaglar Kwikpen U-100] Insulin Glargine,Hum.rec.anlog 20 unit SQ HS 12/26/17 12/26/17 [Basaglar Kwikpen U-100] Insulin Regular, Human [Novolin R] 5 unit SQ TID 12/26/17 12/26/17 Metformin HCl 2,000 mg PO QPM 12/26/17 12/26/17 Previous Rx's Medication Instructions Recorded Cyanocobalamin/Cobamamide [B-12 1 each SL DAILY #90 tab.subl 08/27/17 5,000 Mcg Sublingual Tab] Ergocalciferol (VITAMIN D2) 50,000 unit PO QWEEK #15 capsule 08/27/17 [Drisdol (50,000 Unit)] Ferrous Sulfate 325 mg PO DAILY #90 tablet 08/27/17 Phos-NaK [Neutra-Phos] 1 each PO DAILY #15 powd.pack 08/27/17 Sennosides/Docusate Sodium [Senna 1 each PO BID tablet 08/27/17 Plus] Thiamine (B-1) [Vitamin B-1] 200 mg PO DAILY #180 tablet 08/27/17 Allergies Allergy/AdvReac Type Severity Reaction Status Date / Time No Known Allergies Allergy Verified 08/24/17 12:30 Past Medical History - Past Medical History Medical history: Reports: diabetes, hypertension Surgical history: Reports: cholecystectomy, hysterectomy Psychiatric history: Reports: no psych history - Social History Smoking Status: Never smoker Smokeless Tobacco Status: No Alcohol use: Reports: none Drug use: Reports: none Physical Exam - General Limitations: no limitations General appearance: alert, in no apparent distress Course Vital Signs Temperature 97.9 F 12/26/17 10:55 Pulse Rate 74 12/26/17 10:55 Respiratory Rate 16 12/26/17 10:55 Blood Pressure 123/66 12/26/17 10:55 O2 Sat by Pulse Oximetry 98 12/26/17 10:55 Temperature 97.5 F L 12/26/17 14:30 Pulse Rate 64 12/26/17 14:30 Respiratory Rate 15 12/26/17 14:30 Blood Pressure 112/45 12/26/17 14:30 O2 Sat by Pulse Oximetry 100 12/26/17 14:30 Oxygen Delivery Oxygen Delivery Room Air Medical Decision Making - Lab Data Result diagrams: 12/26/17 11:13 12/26/17 11:13 Lab Results 12/26/17 12/26/17 12/26/17 Range/Units 11:13 11:13 11:13 WBC 4.2 L (4.3-11.1) K/mcL RBC 3.08 L (3.82-4.97) M/mcL Hgb 9.5 L (11.5-15.4) g/dL Hct 28.8 L (35.3-44.9) % MCV 93.5 (83.0-100.0) fL MCH 30.8 (28.0-33.3) pg MCHC 33.0 (31.6-35.5) g/dL RDW 13.8 (11.5-14.5) % Plt Count 120 L (140-400) K/mcL MPV 9.1 L (9.4-12.4) fL Immature Gran % 0.7 (0-4) % Seg Neutrophils % 67.5 % Lymphocytes % 21.0 % Monocytes % 9.7 % Eosinophils % 0.9 % Basophils % 0.2 % Neutrophils # 2.8 (1.6-8.9) K/mcL Lymphocytes # 0.9 (0.6-4.6) K/mcL Monocytes # 0.4 (0.0-1.3) K/mcL Eosinophils # 0.0 (0.0-0.6) K/mcL Basophils # 0.0 (0.0-0.2) K/mcL Platelet Estimate Slight Decrease L (Normal) PT 10.1 (9.4-12.1) Seconds INR 0.9 Fibrinogen 342 (169-393) mg/dL Sodium 130 L (136-145) mEq/L Potassium 5.1 (3.5-5.1) mEq/L Chloride 108 H (98-107) mEq/L Carbon Dioxide 16 L (23-29) mEq/L BUN 50 H (8-23) mg/dL Creatinine 1.53 H (0.60-1.20) mg/dL Est GFR ( Amer) 39 L (> 60) Est GFR (Non-Af Amer) 33 L (> 60) BUN/Creatinine Ratio 33 H (6-26) Glucose 182 H (70-105) mg/dL Calculated Osmolality 288 (280-300) Calcium 8.1 L (8.6-10.3) mg/dL Total Bilirubin (0.3-1.0) mg/dL Direct Bilirubin (0.0-0.2) mg/dL Indirect Bilirubin (0.0-1.2) mg/dL AST (13-39) Units/L ALT (7-52) Units/L Alkaline Phosphatase (34-104) Units/L Serum Total Protein (6.4-8.9) g/dL Albumin (3.5-5.7) g/dL Globulin (2.4-3.5) g/dL Albumin/Globulin Ratio (1.1-2.2) Blood Type Antibody Screen ANNABEL, Poly Interpret 12/26/17 12/26/17 Range/Units 11:13 11:13 WBC (4.3-11.1) K/mcL RBC (3.82-4.97) M/mcL Hgb (11.5-15.4) g/dL Hct (35.3-44.9) % MCV (83.0-100.0) fL MCH (28.0-33.3) pg MCHC (31.6-35.5) g/dL RDW (11.5-14.5) % Plt Count (140-400) K/mcL MPV (9.4-12.4) fL Immature Gran % (0-4) % Seg Neutrophils % % Lymphocytes % % Monocytes % % Eosinophils % % Basophils % % Neutrophils # (1.6-8.9) K/mcL Lymphocytes # (0.6-4.6) K/mcL Monocytes # (0.0-1.3) K/mcL Eosinophils # (0.0-0.6) K/mcL Basophils # (0.0-0.2) K/mcL Platelet Estimate (Normal) PT (9.4-12.1) Seconds INR Fibrinogen (169-393) mg/dL Sodium (136-145) mEq/L Potassium (3.5-5.1) mEq/L Chloride (98-107) mEq/L Carbon Dioxide (23-29) mEq/L BUN (8-23) mg/dL Creatinine (0.60-1.20) mg/dL Est GFR ( Amer) (> 60) Est GFR (Non-Af Amer) (> 60) BUN/Creatinine Ratio (6-26) Glucose (70-105) mg/dL Calculated Osmolality (280-300) Calcium (8.6-10.3) mg/dL Total Bilirubin 0.3 (0.3-1.0) mg/dL Direct Bilirubin 0.1 (0.0-0.2) mg/dL Indirect Bilirubin 0.2 (0.0-1.2) mg/dL AST 55 H (13-39) Units/L ALT 117 H (7-52) Units/L Alkaline Phosphatase 110 H (34-104) Units/L Serum Total Protein 5.9 L (6.4-8.9) g/dL Albumin 3.3 L (3.5-5.7) g/dL Globulin 2.6 (2.4-3.5) g/dL Albumin/Globulin Ratio 1.3 (1.1-2.2) Blood Type O POSITIVE Antibody Screen NEGATIVE ANNABEL, Poly Interpret NEG Attestation Statement - Attestation Attestation: I examined this patient and my medical decision-making was reviewed with the Resident Physician. I agree with the documented findings, disposition and treatment plan as described except to the extent set forth below. Patient presents to the ED with abnormal labs. Patient was seen last night left AMA. They were concerned with her pancytopenia. Patient states she has a history of a similar episode that resolved spontaneously and did not want to stay. She states she feels okay. She was recently treated for UTI with Keflex. On examination she is awake and alert in no acute distress. Her vitals are stable. She does have petechiae of her lower extremities. Plan. Basic labs. We will admit. Labs reviewed. Patient hemolytically stable. Admitted.
[2017-12-26 12:02] LABS: Calcium 8.1 mg/dL (8.6-10.3); Potassium 5.1 mEq/L (3.5-5.1)
[2017-12-26 12:03] LABS: Albumin 3.3 g/dL (3.5-5.7); Albumin/Globulin Ratio 1.3 (1.1-2.2); Bilirubin,Direct 0.1 mg/dL (0.0-0.2); Bilirubin,Indirect 0.2 mg/dL (0.0-1.2); Bilirubin,Total 0.3 mg/dL (0.3-1.0); Globulin 2.6 g/dL (2.4-3.5); Total Protein 5.9 g/dL (6.4-8.9)
[2017-12-26 12:06] LABS: Platelet Estimate Slight Decrease (Normal)
[2017-12-26 12:22] LABS: INR 0.9; Prothrombin Time 10.1 Seconds (9.4-12.1)
[2017-12-26] MEDS ORDERED: Naloxone 0.4 MG/ML INJ IVP PRN (14:23)
[2017-12-26] MEDS ORDERED: Dextrose Gel 15 GM/37.5 ML TUBE PO PRN ×2 (14:27)
[2017-12-26] MEDS ORDERED: D5% in Water 1,000 ML IVC PRN (14:27)
[2017-12-26] MEDS ORDERED: *HR* Dextrose 50 % in Water (Syg) 50 ML SYRINGE IVP PRN (14:27)
--- NOTE | 2017-12-26 14:52 | Internal Med History&Physical ---
<Judah Vaughn P - Last Filed: 12/26/17 14:38> Date of Encounter: 12/26/17 Time of Encounter: 14:00 Internal Medicine - H&P: HPI Chief complaint: Skin Rash Admitted From: Home Plans for Post Hospital Care: Home History of present illness: Ms. Johnson is a 82 year old female with past medical history significant for hypertension, CHF, hyperlipidemia, and diabetes who presents from [facility] for 2-3 day history of "rash" to bilateral lower extremities. States she had similar presentation around three years ago that resolved without intervention or medical attention. Denies any itching, burning, pain, or drainage from rash. No current treatment. No alleviating or exacerbating factors. No chest pain, palpitations, shortness of breath, abdominal pain, headache, nausea, vomiting, fever, or chills. Does state she has had diarrhea intermittently over the past month with some decreased intake due to low appetite. Also states she has noticed some increased volume and frequency in her urination over the past few days but denies any other urinary changes. Checks blood sugar 3-4 times per day and reports they have been ranging 100-300 which is typical for her. Checks blood pressure regularly as well but is unable to recall what they have been averaging but states they have been normal. Has history of heart failure with last echo completed in June 2017 with 25-30% ejection fraction. Patient denies any recent edema or signs of fluid overload. Patient also was recently supposed to have a defibrillator placed but elected not to do so. Daughter in law at bedside states patient has intermittent confusion, although patient is oriented at the time of my exam. Daughter in law would like to discuss medical POA with social media senior associate. Discussed code status with patient and daughter in law, and patient (who is oriented at this time) would currently like to remain a full code. Discussed patient with Dr Valenzuela. Past Med Surg Social Fam HX - Past Medical History Medical history: CHF, diabetes, hypertension Additional medical history: Type 2 Diabetic Psychiatric history: no psych history - Past Surgical History Surgical History: cholecystectomy, hysterectomy Additional surgical history: gastric ulcers - Social History Smoking Status: Never smoker Smokeless Tobacco Status: No Alcohol use: none Drug use: none Internal Medicine - H&P: Meds Aspirin [Lo-Dose Aspirin EC] 81 mg PO DAILY 08/24/17 [History] Carvedilol [Coreg] 25 mg PO BID 08/24/17 [History] Ezetimibe [Zetia] 10 mg PO DAILY 08/24/17 [History] Lisinopril [Zestril] 5 mg PO DAILY 08/24/17 [History] SitaGLIPtin [Januvia] 100 mg PO DAILY 08/24/17 [History] Spironolactone [Aldactone] 25 mg PO DAILY 08/24/17 [History] Cyanocobalamin/Cobamamide [B-12 5,000 Mcg Sublingual Tab] 1 each SL DAILY #90 tab.subl 08/27/17 [Rx] Ergocalciferol (VITAMIN D2) [Drisdol (50,000 Unit)] 50,000 unit PO QWEEK #15 capsule 08/27/17 [Rx] Ferrous Sulfate 325 mg PO DAILY #90 tablet 08/27/17 [Rx] Phos-NaK [Neutra-Phos] 1 each PO DAILY #15 powd.pack 08/27/17 [Rx] Sennosides/Docusate Sodium [Senna Plus] 1 each PO BID tablet 08/27/17 [Rx] Thiamine (B-1) [Vitamin B-1] 200 mg PO DAILY #180 tablet 08/27/17 [Rx] Atorvastatin [Lipitor] 40 mg PO HS 12/26/17 [History] Furosemide [Lasix] 20 mg PO DAILY 12/26/17 [History] Insulin Glargine,Hum.rec.anlog [Basaglar Kwikpen U-100] 17 unit SQ QAM 12/26/17 [History] Insulin Glargine,Hum.rec.anlog [Basaglar Kwikpen U-100] 20 unit SQ HS 12/26/17 [ History] Insulin Regular, Human [Novolin R] 5 unit SQ TID 12/26/17 [History] Metformin HCl 2,000 mg PO QPM 12/26/17 [History] 3 Allergy/AdvReac Type Severity Reaction Status Date / Time No Known Allergies Allergy Verified 08/24/17 12:30 All Systems PM: A 10-system review of systems was performed and is negative for pertinent findings except as documented above in the HPI. - Constitutional Vitals: Temp Pulse Resp BP Pulse Ox 97.5 F L 64 15 112/45 100 12/26/17 14:30 12/26/17 14:30 12/26/17 14:30 12/26/17 14:30 12/26/17 14:30 Exam: General: Alert and oriented. Family reports intermittent confusion at baseline. Skin:Normal color, no lesions. Skin dry. Non blanching, flat, petichiae, and purpura rash noted to bilateral lower extremities. HEENT:Pupils equal, round and reactive. Cardiovascular:Heart sounds distant, no rubs, murmurs or gallops. No JVD. Pulse regular. Lungs:Normal breath sounds, no wheezes or crackles. Abdomen:Soft, non-tender, no rigidity. Extremities:No deformity, no edema or tenderness, no joint swelling or clubbing. Neurological:Normal cognition and motor skills. Pulses:Carotid and radial pulses normal +2. Rest of the physical exam is non contributory. Internal Med - H&P Results - Labs CBC & Chem 7: 12/26/17 11:13 12/26/17 11:13 - Assessment and plan (1) Pancytopenia Current Visit: Yes Status: Acute Assessment and plan: Hematology/Oncology consulted by ER. Repeat labs in a.m. (2) MAGGIE (acute kidney injury) Current Visit: No Status: Acute Assessment and plan: Gentle IVF with .45 at 60ml/hr. Hold diuretics. Repeat a.m. labs. (3) Hyponatremia Current Visit: Yes Status: Acute Assessment and plan: IV fluids as above. Repeat a.m. labs. (4) Hypocalcemia Current Visit: Yes Status: Acute Assessment and plan: Repeat a.m. labs. (5) Diabetes Current Visit: Yes Status: Chronic Assessment and plan: ACHS accucheck. Diabetic diet. Hold home diabetic medications. Low dose sliding scale insulin. Qualifiers: Diabetes mellitus type: type 2 Diabetes mellitus local intermodal truck driver insulin use: with local intermodal truck driver use Diabetes mellitus complication status: without complication Qualified Code(s): E11.9 - Type 2 diabetes mellitus without complications; Z79.4 - FDC (current) use of insulin - Time Spent With Patient Total time spent is greater than 50% in coordination of care (as documented) at patient's floor/unit and/or counseling patient: <Nikolay Felipe Y - Last Filed: 12/26/17 18:05> Date of Encounter: 12/26/17 Internal Medicine - H&P: HPI History of present illness: Ms. Johnson is a 82 year old female All Systems PM: A 10-system review of systems was performed and is negative for pertinent findings except as documented above in the HPI. - Constitutional Vitals: Temp Pulse Resp BP Pulse Ox 97.5 F L 64 15 112/45 100 12/26/17 14:30 12/26/17 14:30 12/26/17 14:30 12/26/17 14:30 12/26/17 14:30 Internal Med - H&P Results - Labs CBC & Chem 7: 12/26/17 11:13 12/26/17 11:13 - Assessment and plan (1) MAGGIE (acute kidney injury) Current Visit: No Status: Acute (2) Pancytopenia Current Visit: Yes Status: Acute (3) Hyponatremia Current Visit: Yes Status: Acute (4) Hypocalcemia Current Visit: Yes Status: Acute (5) Diabetes Current Visit: Yes Status: Chronic Qualifiers: Diabetes mellitus type: type 2 Diabetes mellitus local intermodal truck driver insulin use: with alf use Diabetes mellitus complication status: without complication Qualified Code(s): E11.9 - Type 2 diabetes mellitus without complications; Z79.4 - terminal worker (current) use of insulin - Time Spent With Patient Total time spent is greater than 50% in coordination of care (as documented) at patient's floor/unit and/or counseling patient: - Attending Attestation Patient seen and evaluated at bedside. A complete physical exam was performed. Case discussed with the BOARD FINISHER. Agree with plan of care.
--- NOTE | 2017-12-26 15:54 | Oncology Inp Consult Note ---
<Bea Orozco L - Last Filed: 12/27/17 12:12> Date of Encounter: 12/25/17 Time of Encounter: 15:54 Assessment and Plan (1) Pancytopenia Status: Acute Assessment and plan: WBC is 4.2, Hgb 9.5, plt count 120 today. ANC is normal at 2.8. 10% bands are noted. MCV is normal. Her platelet count has actually improved today B12 is replete. She appears to have an MAGGIE with BUN 50, Creatinine 1.5 and GFR 33. These lab abnormalities appear to be an acute change from baseline. She has recurrent UTI's and recently treated for UTI with Keflex. No B symptoms. Rash appears to resembles purpura, not petechial Elevated liver enzymes Plan: Check folate, Iron panel, ferritin, SPEP, hepatitis panel, serum free light chains and direct froilan LDH pending Blood smear pending Etiologies include non-malignant etiology such as autoimmune/vasculitis, recent infectious cause (UTI/Diarrhea) nutritional deficiency or drug induced (Keflex can rarely cause pancytopenia picture) or malignant etiology such as MDS or multiple myeloma (given concomitant MAGGIE) Recommend dermatology consult for potential skin punch bx Check ANCA antibodies Further workup pending labs as above - Data of Consult Patient: new to practice Consult date: 12/26/17 Requesting Physician: Nikolay Felipe MD Primary Care Provider: Adri Liu MD - Consult Narrative Reason for consult: Pancytopenia History of present illness: Ms. Johnson is a 82 year old female with past medical history significant for HTN, CHF and hyperlipidemia. She resides in an [facility]. She presented to ER last evening for labs which revealed pancytopenia along with petechial rash to lower extremities. Ms. Johnson left AMA and returned to the ER today for concern of repeat labs which revealed pancytopenia. Her WBC is 4.2, Hgb 9.5, plt count 120 today. ANC is normal at 2.8. 10% bands are noted. MCV is normal. B12 is replete. She appears to have an MAGGIE with BUN 50, Creatinine 1.5 and GFR 33. These lab abnormalities appear to be an acute change from baseline. She has recurrent UTI's and recently treated for UTI with Keflex. She states she had a rash similar to this a few years ago, which was treated with steroids with no real improvement, the rash cleared on it's own. She denies fevers, chills, nightsweats, arthralgias/myalgias, H/A, dizziness, chest pain, SOB, ,dysphagia, abdominal pain, nausea, vomiting, appetite changes or unintended weight loss, lower extremity pain or edema. She has had a history of diarrhea for weeks, prior to her starting keflex, which she describes as loose stool about 2 times daily. She has no personal history of cancer. Her son has a history of mantle cell lymphoma, currently in remission. Past Med Surg Social Fam HX - Past Medical History Medical history: diabetes, hypertension Additional medical history: Type 2 Diabetic Psychiatric history: no psych history - Past Surgical History Surgical History: cholecystectomy, hysterectomy Additional surgical history: gastric ulcers - Social History Smoking Status: Never smoker Smokeless Tobacco Status: No Alcohol use: none Drug use: none Medications and Allergies RX: Aspirin [Lo-Dose Aspirin EC] 81 mg PO DAILY 08/24/17 [History] RX: Carvedilol [Coreg] 25 mg PO BID 08/24/17 [History] RX: Ezetimibe [Zetia] 10 mg PO DAILY 08/24/17 [History] RX: Lisinopril [Zestril] 5 mg PO DAILY 08/24/17 [History] RX: SitaGLIPtin [Januvia] 100 mg PO DAILY 08/24/17 [History] RX: Spironolactone [Aldactone] 25 mg PO DAILY 08/24/17 [History] Cyanocobalamin/Cobamamide [B-12 5,000 Mcg Sublingual Tab] 1 each SL DAILY #90 tab.subl 08/27/17 [Rx] Phos-NaK [Neutra-Phos] 1 each PO DAILY #15 powd.pack 08/27/17 [Rx] RX: Ergocalciferol (VITAMIN D2) [Drisdol (50,000 Unit)] 50,000 unit PO QWEEK #15 capsule 08/27/17 [Rx] RX: Ferrous Sulfate 325 mg PO DAILY #90 tablet 08/27/17 [Rx] RX: Sennosides/Docusate Sodium [Senna Plus] 1 each PO BID tablet 08/27/17 [Rx] RX: Thiamine (B-1) [Vitamin B-1] 200 mg PO DAILY #180 tablet 08/27/17 [Rx] Atorvastatin [Lipitor] 40 mg PO HS 12/26/17 [History] Insulin Glargine,Hum.rec.anlog [Basaglar Kwikpen U-100] 17 unit SQ QAM 12/26/17 [History] Insulin Glargine,Hum.rec.anlog [Basaglar Kwikpen U-100] 20 unit SQ HS 12/26/17 [History] Insulin Regular, Human [Novolin R] 5 unit SQ TID 12/26/17 [History] RX: Furosemide [Lasix] 20 mg PO DAILY 12/26/17 [History] RX: Metformin HCl 2,000 mg PO QPM 12/26/17 [History] Allergy/AdvReac Type Severity Reaction Status Date / Time No Known Allergies Allergy Verified 08/24/17 12:30 Constitutional: Present: as per HPI. Absent: anorexia, chills, fatigue, fever(s), headache(s), night sweats, weakness, weight loss Eyes: Absent: change in vision Nose, mouth and throat: Absent: dysphagia Cardiovascular: Absent: chest pain, palpitations Respiratory: Absent: cough, dyspnea Gastrointestinal: Absent: abdominal pain, change in bowel habits, nausea, vomiting Genitourinary: Absent: dysuria, flank pain Musculoskeletal: Absent: muscle weakness Integumentary: Present: rash. Absent: wounds Neurological: Absent: focal weakness, frequent falls Hematologic/Lymphatic: Present: as per HPI. Absent: lymphadenopathy Oncology - Exam - Constitutional Vitals: Temp Pulse Resp BP Pulse Ox 97.5 F L 64 15 112/45 100 12/26/17 14:30 12/26/17 14:30 12/26/17 14:30 12/26/17 14:30 12/26/17 14:30 General appearance: cooperative, no acute distress, no febrile - Head Head exam: Present: atraumatic - ENT ENT exam: Present: mucous membranes moist - Respiratory Respiratory exam: Present: CTAB. Absent: respiratory distress - Cardiovascular Cardiovascular exam: Present: RRR, +S1, +S2 - GI/Abdominal GI/Abdominal exam: Present: normal bowel sounds, soft. Absent: guarding, rebound, tenderness - Extremities Exam Extremities exam: Absent: calf tenderness - Neurological Exam Neurological exam: Present: alert, oriented X3, no focal deficits, strengths equal and symetr throughout - Psychiatric Psychiatric exam: Present: normal affect, normal mood - Skin Additional comments: Non blanchable purpura to BLE Consult Discharge Plan - Plan Referrals: Adri Liu MD [Primary Care Provider] - <Rena Starks - Last Filed: 12/27/17 14:46> Date of Encounter: 12/26/17 - Data of Consult Requesting Physician: Nikolay Felipe MD Primary Care Provider: Adri Liu MD - Consult Narrative History of present illness: Ms. Johnson is a 82 year old female Oncology - Exam - Constitutional Vitals: Temp Pulse Resp BP Pulse Ox 97.5 F L 64 15 112/45 100 12/26/17 14:30 12/26/17 14:30 12/26/17 14:30 12/26/17 14:30 12/26/17 14:30 Oncology - Results Labs: 12/26/17 16:26 POC Glucose 257 H - Attending Attestation 1. Anemia normocytic normochromic. B12 normal. We will check iron levels folate and TSH. This could be multifactorial. Her chronic kidney disease stage III is playing a role. She may have nutritional deficiency. If necessary would consider bone marrow biopsy to rule out underlying MDS 2. Thrombocytopenia. Platelet count around 80,000 which rapidly improved to 120,000 today. Neutrophils normal. Again we will rule out nutritional deficiencies as mentioned above 3. Elevated liver enzymes ALT more than AST. ALT around 100 range and it has been going on for more than a year. She is on statin at [facility] which could be contributing to some of this. We will check for viral hepatitis profile. If necessary consider holding Lipitor for a while Consider abdominal imaging 3. Rash in the lower extremities. Given normal platelets is unlikely petechia. Could be vasculitis. Dermatology consult. May need skin biopsy 4. She finished a course of antibiotics for UTI. Her UTI may have played a role in her thrombocytopenia. Also CBC showed few bands in the WBC and.. Few nucleated RBCs and toxic granulations. This could be secondary to sepsis as well Current Urine analysis was negative other than moderate leukocyte esterase Inpatient Charges Provider: Dr. Hiwot Starks Consult - Inpatient Medicare Only: [id number]
[2017-12-26] MEDS ORDERED: Acetaminophen 325 MG TABLET PO ONE (17:11)
[2017-12-26] MEDS: *HR* Heparin 5,000 UNIT/ML VIAL SQ SCH (17:49)
[2017-12-26] MEDS: Insulin LISPRO 300 UNITS/3 ML VIAL SQ SCH ×2 (17:50→20:47)
[2017-12-27 11:38] LABS: Basophils % 0.6 %; Eosinophils # 0.1 K/mcL (0.0-0.6); Eosinophils % 2.8 %; Hematocrit 24.9 % (35.3-44.9); Hemoglobin 8.4 g/dL (11.5-15.4); Immature Granulocytes % 0.6 % (0-4); Immature Platelets 5.4 % (1.1-6.1); Lymphocytes # 1.1 K/mcL (0.6-4.6); Lymphocytes % 30.4 %; Mean Corpuscular HGB Conc 33.7 g/dL (31.6-35.5); Mean Corpuscular Hemoglobin 31.1 pg (28.0-33.3); Mean Corpuscular Volume 92.2 fL (83.0-100.0); Mean Platelet Volume 8.9 fL (9.4-12.4); Monocytes # 0.4 K/mcL (0.0-1.3); Monocytes % 9.7 %; Segmented Neutrophils % 55.9 %
[2017-12-27 11:49] LABS: % Iron Saturation 25 % (15-50); Ferritin 145 ng/mL (10-120); Iron 72 mcg/dL (50-170); Transferrin 209 mg/dL (203-362)
[2017-12-27] MEDS: *HR* Heparin 5,000 UNIT/ML VIAL SQ SCH ×2 (12:06→18:06)
[2017-12-27] MEDS: Insulin LISPRO 300 UNITS/3 ML VIAL SQ SCH ×4 (12:06→20:48)
[2017-12-27] MEDS: Aspirin Enteric Coated 81 MG Tablet PO SCH (12:10)
[2017-12-27] MEDS: Thiamine (B-1) 100 MG TABLET PO SCH (12:11)
[2017-12-27] MEDS: Cyanocobalamin (B-12) 1,000 MCG TABLET PO SCH (12:11)
[2017-12-27] MEDS ORDERED: 0.9 % Sodium Chloride 1,000 ML IVC SCH (12:15)
[2017-12-27 13:02] LABS: Platelet Count 81 K/mcL (140-400)
--- NOTE | 2017-12-27 13:07 | Internal Med Progress Note ---
<Vincent Cabrera - Last Filed: 12/27/17 16:43> Hospitalist Progress Note - Encounter Date of Encounter: 12/27/17 Time of Encounter: 13:04 - Subjective Interval History: Ms. Johnson was seen and examined at the bedside this morning. Resting comfortably, NAD. Family present at bedside. Pt admits to rash b/l LE, but states that it causes her no discomfort. ROS: admits to diarrhea; denies headaches, changes in vision or hearing, cp, sob, abdominal pain, n/v, f/c - Exam Vitals: Temp Pulse Resp BP Pulse Ox 98.4 F 70 14 121/62 95 12/26/17 19:07 12/26/17 19:07 12/26/17 19:07 12/26/17 19:07 12/26/17 19:07 Exam: General: Alert and oriented. HEENT: mucus membranes moist, PERRLA, no cervical lymphaenopathy CV: +s1, s2; no s3 or s4, no rubs, murmurs or gallops; No JVD, pulses regular Lungs: b/l breath sounds; no rales or rhonchi Abdomen: general pain to palpation Extremities: no edema or tenderness; no joint swelling or clubbing Neuro: pt awake and alert - Assessment and Plan (1) Pancytopenia Current Visit: Yes Status: Acute Assessment and Plan: heme/onc consulted -etilolgy unclear, considering autoimmune/vasculitis, recent infectious cause (UTI/Diarrhea) nutritional deficiency, drug induced MDS, multiple myeloma -currently ruled as normocitic/normochromic anemia -Transferrin 209, ferritin 145, Iron 72, % saturation 25 -folate 22.3 -recommended checking SPEP, hepatitis panel, serum free light chains, ANCA a ntibodies and direct froilan -LDH pending, Blood smear pending -dermatology consult as outpatient (2) MAGGIE (acute kidney injury) Current Visit: Yes Status: Acute Assessment and Plan: likely secondary to volume depletion Cr. 1.53, elevated; baseline <1 Improving today, Cr. 1.25 NS @ 60 ml hr hold diuretics (3) Hyponatremia Current Visit: Yes Status: Acute Assessment and Plan: na 130-->129 NS @ 60 ml/hrs will continue to monitor (4) DMII (diabetes mellitus, type 2) Current Visit: No Status: Chronic Assessment and Plan: ACHS accucheck. Diabetic diet. Hold home diabetic medications. Low dose sliding scale insulin. A1C 8.0 (5) Petechial rash Current Visit: Yes Status: Acute Assessment and Plan: possibly secondary to pancytopenia, see above derm aware, consult as outpatient DVT Prophylaxis: Scds - Time Spent with Patient Total time spent is greater than 50% in coordination of care (as documented) at patient's floor/unit and/or counseling patient: Internal Medicine: Result - Labs CBC & Chem 7: 12/27/17 04:52 12/27/17 04:52 Labs: Short CBC 12/27/17 Range/Units 04:52 WBC 3.6 L (4.3-11.1) K/mcL Hgb 8.4 L (11.5-15.4) g/dL Hct 24.9 L (35.3-44.9) % Plt Count 81 L (140-400) K/mcL Neutrophils # 2.0 (1.6-8.9) K/mcL BMP 12/27/17 04:52 Sodium 129 L Potassium 5.0 Chloride 110 H Carbon Dioxide 14 L BUN 51 H Creatinine 1.25 H Glucose 124 H Calcium 8.0 L - ABG Interpretation ABG results: PT/INR, D-dimer PT 10.1 Seconds (9.4-12.1) 12/26/17 11:13 Consult Discharge Plan - Plan Referrals: Adri Liu MD [Primary Care Provider] - <Davey Flores - Last Filed: 12/27/17 17:54> Hospitalist Progress Note - Exam Vitals: Temp Pulse Resp BP Pulse Ox 98.1 F 70 15 121/62 96 12/27/17 14:52 12/27/17 14:52 12/27/17 14:52 12/27/17 17:36 12/27/17 14:52 - Assessment and Plan (1) MAGGIE (acute kidney injury) Current Visit: No Status: Inactive (2) Pancytopenia Current Visit: Yes Status: Acute (3) Hyponatremia Current Visit: Yes Status: Acute (4) Hypocalcemia Current Visit: Yes Status: Acute (5) Diabetes Current Visit: Yes Status: Chronic - Time Spent with Patient Total time spent is greater than 50% in coordination of care (as documented) at patient's floor/unit and/or counseling patient: Internal Medicine: Result - Labs CBC & Chem 7: 12/27/17 04:52 12/27/17 04:52 Labs: Short CBC 12/27/17 Range/Units 04:52 WBC 3.6 L (4.3-11.1) K/mcL Hgb 8.4 L (11.5-15.4) g/dL Hct 24.9 L (35.3-44.9) % Plt Count 81 L (140-400) K/mcL Neutrophils # 2.0 (1.6-8.9) K/mcL BMP 12/27/17 04:52 Sodium 129 L Potassium 5.0 Chloride 110 H Carbon Dioxide 14 L BUN 51 H Creatinine 1.25 H Glucose 124 H Calcium 8.0 L Urine 12/27/17 Range/Units 14:52 Urine Color Yellow (Yellow) Urine Clarity Clear (Clear) Urine pH 5.5 (5.0-8.0) pH Units Ur Specific [place] 1.025 (1.010-1.025) Urine Protein 30 H (Neg-Trace) mg/dL Urine Glucose (UA) Normal (Normal) mg/dL - ABG Interpretation ABG results: PT/INR, D-dimer PT 10.1 Seconds (9.4-12.1) 12/26/17 11:13 - Attending Attestation The history, physical exam, and medical decision making was performed by the medical student Dr. Cabrera either while I was physically present and actively involved or I personally re-performed the exam and medical decision making. I have verified the accuracy of the medical student's documentation with regards to the history, physical exam findings, and medical decision making. Ms. Johnson is a 82 year old female with PMH of HTN, CHF, HLD, DM who presented to ER with b/l LE rash started 2 days ago. She also happened to have pancytopenia, acute kidney injury, abnormal LFTS. Pt denied any CP SOB. Gen: A, AO x3 Chest: Diminished BS b/l Heart: S1S2 + RRR no murmurs abd: Soft NT BS+ Skin: Non palpable, non blanching rash, diffuse rash b/l LE more pronounced over distal part of legs extending into medial thigh region a.p 1. Acute skin rash possible small vessel disease / vasculitis concerning for auto immune process started on extensive work up Appreciate Heme Onc and Rheum recommendation Will consult Derm for possible skin biopsy <Vincent Cabrera - Last Filed: 12/27/17 16:43> (4) DMII (diabetes mellitus, type 2) Qualifiers: Diabetes mellitus long chain beamer insulin use: with halfway use Chronic kidney disease stage: unspecified stage <Davey Flores - Last Filed: 12/27/17 17:54> (5) Diabetes Qualifiers: Diabetes mellitus type: type 2 Diabetes mellitus long chain beamer insulin use: with long chain beamer use Diabetes mellitus complication status: without complication Qualified Code(s): E11.9 - Type 2 diabetes mellitus without complications; Z79.4 - termite control servicer (current) use of insulin
--- NOTE | 2017-12-27 14:27 | Oncology Inp Progress Note ---
<Bea Orozco L - Last Filed: 12/27/17 15:55> Date of Encounter: 12/27/17 Time of Encounter: 12:00 (1) Pancytopenia Current Visit: Yes Status: Acute Assessment and plan: ANC is normal. 10% bands are noted. MCV is normal. Her platelet count is labile and back to 80 today B12/Iron is replete. She appears to have an MAGGIE with BUN 50, Creatinine 1.5 and GFR 33. These lab abnormalities appear to be an acute change from baseline. She has recurrent UTI's and recently treated for UTI with Keflex. No B symptoms. Rash appears to resembles purpura, not petechial Elevated liver enzymes Plan: CT chest/abdomen/pelvis wo contrast to evaluate liver/spleen Folate, LDH, SPEP, hepatitis panel, serum free light chains---pending Blood smear---pending Etiologies include non-malignant etiology such as autoimmune/vasculitis, recent infectious cause (UTI/Diarrhea) nutritional deficiency or drug induced (Keflex can rarely cause pancytopenia picture) or malignant etiology such as MDS or multiple myeloma (given concomitant MAGGIE) Recommend dermatology consult for potential skin punch bx---derm has requested an outpatient follow up ANCA antibodies---pending Consult Rheumatology for further recommendations vs. outpatient f/u Further workup pending labs as above Her counts appear stable. If workup above is benign may consider bone marrow biopsy as an outpatient if she continues to have pancytopenia of unclear etiology Follow up with Dr. Starks in 2-3 weeks Oncology: Subj Interval history: Ms. Johnson is resting in bed. Her family are at bedside. She has not physical complaint. No diarrhea today. Patients family at bedside state that she has had "loose bowel movements" all of her life and that this is not different than her baseline. - Constitutional Vitals: Vital Signs Temp Pulse Resp BP Pulse Ox 12/26/17 19:07 98.4 F 70 14 121/62 95 12/26/17 14:30 97.5 F L 64 15 112/45 100 Intake and Output 12/26/17 12/27/17 12/27/17 23:59 07:59 15:59 Intake Total 100 / 100 120 / 120 Output Total 0 / 0 Balance 100 / 100 120 / 120 Intake: Oral 100 / 100 120 / 120 Output: Urine 0 / 0 Other: Meal Lunch Percent of Meal Consumed 100% # Bowel Movements 0 Blood Glucose* 181 General appearance: cooperative, no acute distress, no febrile - Head Head exam: Present: atraumatic - ENT ENT exam: Present: mucous membranes moist - Respiratory Respiratory exam: Present: CTAB. Absent: respiratory distress - Cardiovascular Cardiovascular exam: Present: RRR, +S1, +S2 - GI/Abdominal GI/Abdominal exam: Present: normal bowel sounds, soft. Absent: tenderness - Extremities Exam Extremities exam: Absent: calf tenderness - Neurological Exam Neurological exam: Present: alert, oriented X3, no focal deficits, strengths equal and symetr throughout - Psychiatric Psychiatric exam: Present: normal affect, normal mood - Skin Skin exam: Present: dry, intact, warm Additional comments: purpura rash to BLE Oncology: Obj Data - Labs CBC & Chem 7: 12/27/17 04:52 12/27/17 04:52 - ABG Interpretation ABG results: PT/INR, D-dimer PT 10.1 Seconds (9.4-12.1) 12/26/17 11:13 Consult Discharge Plan - Plan Referrals: Rena Starks MD [Partnered Physician] - (2-3 week follow up.) Adri Liu MD [Primary Care Provider] - Bea Roy MD [Partnered Physician] - 12/31/17 3:15 pm <Rena Starks - Last Filed: 12/28/17 13:40> - Constitutional Vitals: Vital Signs Temp Pulse Resp BP Pulse Ox 12/27/17 14:52 98.1 F 70 15 96 12/26/17 19:07 98.4 F 70 14 121/62 95 Intake and Output 12/26/17 12/27/17 12/27/17 23:59 07:59 15:59 Intake Total 100 / 100 120 / 120 Output Total 0 / 0 50 / 50 Balance 100 / 100 70 / 70 Intake: Oral 100 / 100 120 / 120 Output: Urine 0 / 0 50 / 50 Other: Meal Lunch Percent of Meal Consumed 100% # Urine Diapers 1 # Bowel Movements 0 Blood Glucose* 181 Oncology: Obj Data - Labs CBC & Chem 7: 12/28/17 08:54 12/28/17 08:54 Labs: Laboratory Results - last 24 hr 12/26/17 12/27/17 12/27/17 16:26 04:52 04:52 WBC 3.6 L RBC 2.70 L Hgb 8.4 L Hct 24.9 L MCV 92.2 MCH 31.1 MCHC 33.7 RDW 14.0 Plt Count 81 L MPV 8.9 L Immature Gran % 0.6 Seg Neutrophils % 55.9 Lymphocytes % 30.4 Monocytes % 9.7 Eosinophils % 2.8 Basophils % 0.6 Neutrophils # 2.0 Lymphocytes # 1.1 Monocytes # 0.4 Eosinophils # 0.1 Basophils # 0.0 Immature Plt Fraction 5.4 Sodium 129 L Potassium 5.0 Chloride 110 H Carbon Dioxide 14 L BUN 51 H Creatinine 1.25 H Est GFR ( Amer) 50 L Est GFR (Non-Af Amer) 41 L BUN/Creatinine Ratio 41 H Glucose 124 H POC Glucose 257 H Calculated Osmolality 283 Calcium 8.0 L Iron % Saturation Transferrin Ferritin 12/27/17 04:52 WBC RBC Hgb Hct MCV MCH MCHC RDW Plt Count MPV Immature Gran % Seg Neutrophils % Lymphocytes % Monocytes % Eosinophils % Basophils % Neutrophils # Lymphocytes # Monocytes # Eosinophils # Basophils # Immature Plt Fraction Sodium Potassium Chloride Carbon Dioxide BUN Creatinine Est GFR ( Amer) Est GFR (Non-Af Amer) BUN/Creatinine Ratio Glucose POC Glucose Calculated Osmolality Calcium Iron 72 % Saturation 25 Transferrin 209 Ferritin 145 H - ABG Interpretation ABG results: PT/INR, D-dimer PT 10.1 Seconds (9.4-12.1) 12/26/17 11:13 Inpatient Charges Provider: Dr. Hiwot Starks Follow up - Inpatient: [id number] - Attending Attestation I examined this patient and my medical decision-making was reviewed with the Advanced Practice Nurse. I agree with the documented findings, disposition and treatment plan as described except to the extent set forth below. 1. Pancytopenia. Platelets fluctuate widely currently 130,000 Hemoglobin around 8.2 B12 folate and TSH normal. CT chest abdomen and pelvis negative. Normal liver and spleen. 4 mm lung nodules considered nonspecific Could be autoimmune in nature as mentioned below If necessary would consider bone marrow biopsy as an outpatient 2. Rash in both feet could be vasculitis. ANCA pending. May need to biopsy of the skin rash Rheumatoid factor elevated at 120. CCP antibody pending We will add cryoglobulin and MINNIE. Vital hepatitis panel negative Appreciate Dr. Saldaña's input 3. Chronic kidney disease stage III. Creatinine 1.5 on admission. Currently improved to 1.1
[2017-12-27] MEDS ORDERED: *HR* Heparin 5,000 UNIT/ML VIAL IVP ONE (15:19)
[2017-12-27] MEDS ORDERED: Cyanocobalamin (B-12) 1,000 MCG TABLET PO ONE (15:19)
[2017-12-27] MEDS ORDERED: Aspirin Enteric Coated 81 MG Tablet PO ONE (15:19)
[2017-12-27] MEDS ORDERED: Thiamine (B-1) 100 MG TABLET PO ONE (15:19)
[2017-12-27 15:20] LABS: Bilirubin,Urine Negative (Negative); Blood,Urine Moderate (Negative); Clarity,Urine Clear (Clear); Color,Urine Yellow (Yellow); Glucose,Urine (UA) Normal (Normal); Ketones,Urine Negative (Negative); Leukocyte Esterase,Urine Small (Negative); Nitrite,Urine Negative (Negative); PH,Urine 5.5 pH Units (5.0-8.0); Protein,Urine 30 mg/dL (Neg-Trace); Specific Gravity,Urine 1.025 (1.010-1.025); Urobilinogen,Urine Normal (Normal)
[2017-12-27 15:24] LABS: Bacteria,Urine None Seen per hpf (None-Few); Hyaline Casts,Urine Few per lpf (None-Few); Squamous Epithelial Cell,Urine Many per lpf (None-Few); WBC,Urine 0-3 per hpf (0-3)
--- NOTE | 2017-12-27 17:01 | Rheumatology Consult Note ---
Date of Encounter: 01/03/18 Time of Encounter: 16:40 Rheumatology Assess and Plan (1) Petechial rash Current Visit: Yes Status: Acute - Nancy has a nonblancheable lower extremity rash which is new and asymptomatic. She presents with multiple other systemic abnormalities such as new pancytopenia, elevated creatinine, abnormal LFTs and microscopic hematuria. - Differential remains fairly broad at this time but given systemic involvement, can be a concern for vasculitis. - Agree with imaging of the chest to look for any parenchymal disease - Would closely monitor renal function because in this setting, with abnormal UA, abnormal creatinine any worsening could prompt further workup. I would make sure creatinine is improving and would recommend nephrology's input on this case. - Hepatitis panel testing, ANCAs, MINNIE, RF, CCP pending. Will add urine prot:cr ratio though she has diabetes so may have some mild protein. - I am out of the hospital until Sunday to which I will round if patient is still here. I did discuss this with Bea Orozco who is following and consulted me. (2) MAGGIE (acute kidney injury) Current Visit: Yes Status: Acute (3) Pancytopenia Current Visit: Yes Status: Acute (4) Abnormal LFTs Current Visit: Yes Status: Acute (5) Microscopic hematuria Current Visit: Yes Status: Acute Rheumatology HPI Consult date: 12/27/17 Requesting physician: Bea Orozco Consult reason: Rash, pancytopenia Chief complaint: Rash History of present illness: Ms. Johnson is a 82 year old female with PMH of HTN, CHF, HLD, DM who presents to [facility] with a rash and found to have pancytopenia, acute kidney injury, abnormal LFTS and I was consulted regarding rash. Nancy reports that about 3-4 days ago she developed a lower extremity rash. It was red, below knees and occurred suddenly. It is not causing pain or itching. She had a similar rash about 3-4 years ago that lasted for less than a week and resolved. Upon coming to the hospital she was found to have pancytopenia, and elevated creatinine, abnormal liver enzymes and abnormal urinalysis. On review of bloodwork she has had a recently normal CBC and kidney function so many of these findings are new. She reports that otherwise she has been in good health is not any problems. General - no recent weight loss, fevers Eyes - no redness, loss of vision, photophobia ENT - oral ulcerations, nasal ulcerations, sore throat, frequent cavities, tinnitus, or vertigo Cardiovascular - no chest pain, palpitations, lightheadedness, syncope Respiratory - no shortness of breath, difficulty breathing at night, pleuritic chest pain and no cough Gastrointestinal - no nausea, vomiting, diarrhea, bloating, black/tarry stools, blood in stools or heartburn Genitourinary - no pain on urination, hematuria, frothy urine or ulcerations. Musculoskeletal - no morning stiffness, joint swelling, muscle aches, tendon/ligament swelling or tenderness Integumentary - no easy bruising, + lower extremity, rashes, hives, photosensitivity, skin thickening Neurological - no muscle weakness or paresthesias Hematologic/lymphatic - no tender or swollen glands Past Med Surg Social Fam HX - Past Medical History Medical history: diabetes, hypertension Additional medical history: Type 2 Diabetic Psychiatric history: no psych history - Past Surgical History Surgical History: cholecystectomy, hysterectomy Additional surgical history: gastric ulcers - Social History Smoking Status: Never smoker Smokeless Tobacco Status: No Alcohol use: none Drug use: none Medications and Allergies Aspirin [Lo-Dose Aspirin EC] 81 mg PO DAILY 08/24/17 [History] Carvedilol [Coreg] 25 mg PO BID 08/24/17 [History] Ezetimibe [Zetia] 10 mg PO DAILY 08/24/17 [History] Lisinopril [Zestril] 5 mg PO DAILY 08/24/17 [History] SitaGLIPtin [Januvia] 100 mg PO DAILY 08/24/17 [History] Spironolactone [Aldactone] 25 mg PO DAILY 08/24/17 [History] Cyanocobalamin/Cobamamide [B-12 5,000 Mcg Sublingual Tab] 1 each SL DAILY #90 tab.subl 08/27/17 [Rx] Ergocalciferol (VITAMIN D2) [Drisdol (50,000 Unit)] 50,000 unit PO QWEEK #15 capsule 08/27/17 [Rx] Ferrous Sulfate 325 mg PO DAILY #90 tablet 08/27/17 [Rx] Phos-NaK [Neutra-Phos] 1 each PO DAILY #15 powd.pack 08/27/17 [Rx] Sennosides/Docusate Sodium [Senna Plus] 1 each PO BID tablet 08/27/17 [Rx] Thiamine (B-1) [Vitamin B-1] 200 mg PO DAILY #180 tablet 08/27/17 [Rx] Atorvastatin [Lipitor] 40 mg PO HS 12/26/17 [History] Furosemide [Lasix] 20 mg PO DAILY 12/26/17 [History] Insulin Glargine,Hum.rec.anlog [Basaglar Kwikpen U-100] 17 unit SQ QAM 12/26/17 [History] Insulin Glargine,Hum.rec.anlog [Basaglar Kwikpen U-100] 20 unit SQ HS 12/26/17 [History] Insulin Regular, Human [Novolin R] 5 unit SQ TID 12/26/17 [History] Metformin HCl 2,000 mg PO QPM 12/26/17 [History] Allergy/AdvReac Type Severity Reaction Status Date / Time No Known Allergies Allergy Verified 08/24/17 12:30 All Systems Review: The remainder of the systems were reviewed and are negative Rheumatology Exam Vital Signs, Last 4 Hours Temp Pulse Resp Pulse Ox 12/27/17 14:52 98.1 F 70 15 96 Exam: General - Alert and oriented x 3, no acute distress and appears comfortable HEENT - Conjunctiva clear, no alopecia or hair thinning, no facial rash, no nasal or oral mucosal lesions/ulcerations Heme/Lymph - No cervical or supraclavicular lymph node enlargement or tenderness. No pallor. Heart - S1S2 regular in rate and rhythm without murmurs, clicks or rubs. No peripheral edema. Radial pulses equal and strong Lungs - Unlabored breathing, clear to auscultation bilaterally without wheezes or crackles; no decrease in chest expansion Gastrointestinal - Soft, nontender, nondistended. Unable to palpate any hepatosplenomegaly Skin - No nodules, tophi, malar rash, telangiectasias, sclerodactyly, digital ulcers, induration. Nonblancheable rash on lower extremities. Neurological - Gait normal, muscle strength 5/5 in all four extremities, sensation intact Musculoskeletal - Full ROM, no synovitis, no joint tenderness, no tenderness to palpation of spine. No petichiae, nail pitting, clubbing or onycholysis. Rheumatology Results 12/27/17 04:52 12/27/17 04:52 All other labs normal. Consult Discharge Plan - Plan Referrals: Adri Liu MD [Primary Care Provider] -
[2017-12-27 21:06] LABS: Protein/Creatinine Ratio,Urine 0.47 mg/mg (0.00-0.20)
[2017-12-28 01:19] LABS: Hepatitis A Antibody IgM Nonreactive (Nonreactive); Hepatitis B Core IgM Nonreactive (Nonreactive); Hepatitis B Surface Antigen Nonreactive (Nonreactive); Hepatitis C Virus Antibody Nonreactive (Nonreactive)
[2017-12-28] MEDS: *HR* Heparin 5,000 UNIT/ML VIAL SQ SCH (06:19)
[2017-12-28] MEDS: Thiamine (B-1) 100 MG TABLET PO SCH (08:32)
[2017-12-28] MEDS: Cyanocobalamin (B-12) 1,000 MCG TABLET PO SCH (08:32)
[2017-12-28] MEDS: Aspirin Enteric Coated 81 MG Tablet PO SCH (08:33)
[2017-12-28] MEDS: Insulin LISPRO 300 UNITS/3 ML VIAL SQ SCH ×2 (08:33→12:02)
[2017-12-28 09:28] LABS: Basophils % 0.3 %; Eosinophils # 0.1 K/mcL (0.0-0.6); Eosinophils % 1.5 %; Hematocrit 25.3 % (35.3-44.9); Hemoglobin 8.4 g/dL (11.5-15.4); Immature Granulocytes % 0.5 % (0-4); Lymphocytes # 1.1 K/mcL (0.6-4.6); Lymphocytes % 26.8 %; Mean Corpuscular HGB Conc 33.2 g/dL (31.6-35.5); Mean Corpuscular Hemoglobin 30.5 pg (28.0-33.3); Mean Platelet Volume 9.4 fL (9.4-12.4); Monocytes # 0.5 K/mcL (0.0-1.3); Monocytes % 11.8 %; Neutrophils # 2.4 K/mcL (1.6-8.9); Platelet Count 133 K/mcL (140-400); Red Blood Count 2.75 M/mcL (3.82-4.97); Red Cell Distribution Width 13.8 % (11.5-14.5); Segmented Neutrophils % 59.1 %
[2017-12-28 09:34] LABS: Calcium 8.2 mg/dL (8.6-10.3); Potassium 5.4 mEq/L (3.5-5.1)
[2017-12-28 09:36] LABS: Platelet Estimate Slight Decrease (Normal)
--- NOTE | 2017-12-28 13:11 | Discharge Summary ---
<Bernie Steinberg - Last Filed: 12/28/17 13:32> - NOTES TO OUTPATIENT PROVIDER Notes to Outpatient Provider: Recommened outpatient follow up with Rheumatology, Dermatology, Heme/Onc. Multiple labs pending. Follow up with PCP within 1 week. Orders not resulted at time of discharge: Pending orders 12/26/17 19:42 MPO/PR3 (ANCA) Antibodies Routine 12/27/17 04:52 [place] Lambda Qnt FLC w Ratio AM 0400 Protein Electrophoresis AM 0400 12/27/17 14:52 UA w. reflex culture [Urinalysis Reflex Cult & Micro] [URIN] Stat 12/27/17 15:49 MINNIE Titer by IFA Routine CCP IgG Routine 12/27/17 20:35 Urine Protein Creat Ratio Neche [UCHEM] Routine 12/28/17 05:21 Anti-Neutrophil Cytoplasmic Ab Routine SSA 52&60 (Anti-RO) Antibodies Routine 12/28/17 10:25 Urinalysis reflex Microscopic [URIN] Stat Urine Microalbumin Random [UCHEM] Routine Urine Protein Creat Ratio Neche [UCHEM] Routine Date of Encounter: 12/28/17 Time of Encounter: 08:47 - Discharge Diagnosis (1) Pancytopenia Priority: Primary Status: Acute (2) Diabetes Priority: Secondary Status: Chronic Qualifiers: Diabetes mellitus type: type 2 Diabetes mellitus oil heaterman insulin use: with oil heaterman use Diabetes mellitus complication status: without complication Qualified Code(s): E11.9 - Type 2 diabetes mellitus without complications; Z79.4 - [employer] or intermediate [employer] (current) use of insulin (3) MAGGIE (acute kidney injury) Priority: Secondary Status: Resolved (4) Petechial rash Priority: Secondary Status: Acute (5) Abnormal LFTs Priority: Secondary Status: Acute (6) Microscopic hematuria Priority: Secondary Status: Acute Hospital course: Ms. Johnson is a 82 year old female with a history of HTN, systolic CHF with an EF 25-30%, HLD, DM who presented from [facility] due to a 3 days history of bilateral lower extremity rash. She denied itching, burning, pain, or drainage related to the rash. On presentation, patient was afebrile, HR 74, RR 16, BP 123/66, 98% on RA. Labs showed a WBC 4.2, RBC 3.08, Hgb 9.5, Hct 28.8, Plt 120, AST 55, ALT 117, Alk Phos 110. She was found to have an MAGGIE with a Cr 1.53, which has improved and is now 1.10. Heme/Onc was consulted from the ER due to pancytopenia, who recommended workup for autoimmune/vasculitis and dermatology consult for possible biopsy. Dermatology plans to follow up as an outpatient for further evaluation. Iron panel showed Iron 72, % sat 25, Transferring 209, and Ferritin 145. CRP 10, Folate >22.3, RF>120. Hepatitis panel was negative. Multiple labs still pending, will follow up with Heme/Onc and Rheumatology as an outpatient. Patient is being discharge in stable condition back to [facility] with plans for outpatient follow up. Discharge discussed with: patient, family - Time Spent with Patient Total time spent providing and/or coordinating discharge services: - Discharge Medications Home Medications: RX: Aspirin [Lo-Dose Aspirin EC] 81 mg PO DAILY 08/24/17 [History] RX: Carvedilol [Coreg] 25 mg PO BID 08/24/17 [History] RX: Ezetimibe [Zetia] 10 mg PO DAILY 08/24/17 [History] RX: Lisinopril [Zestril] 5 mg PO DAILY 08/24/17 [History] RX: SitaGLIPtin [Januvia] 100 mg PO DAILY 08/24/17 [History] RX: Spironolactone [Aldactone] 25 mg PO DAILY 08/24/17 [History] RX: Cyanocobalamin/Cobamamide [B-12 5,000 Mcg Sublingual Tab] 1 each SL DAILY #90 tab.subl 08/27/17 [Rx] RX: Ergocalciferol (VITAMIN D2) [Drisdol (50,000 Unit)] 50,000 unit PO QWEEK #15 capsule 08/27/17 [Rx] RX: Ferrous Sulfate 325 mg PO DAILY #90 tablet 08/27/17 [Rx] RX: Phos-NaK [Neutra-Phos] 1 each PO DAILY #15 powd.pack 08/27/17 [Rx] RX: Sennosides/Docusate Sodium [Senna Plus] 1 each PO BID tablet 08/27/17 [Rx] RX: Thiamine (B-1) [Vitamin B-1] 200 mg PO DAILY #180 tablet 08/27/17 [Rx] RX: Atorvastatin [Lipitor] 40 mg PO HS 12/26/17 [History] RX: Furosemide [Lasix] 20 mg PO DAILY 12/26/17 [History] RX: Insulin Glargine,Hum.rec.anlog [Basaglar Kwikpen U-100] 17 unit SQ QAM 12/26/17 [History] RX: Insulin Glargine,Hum.rec.anlog [Basaglar Kwikpen U-100] 20 unit SQ HS 12/26/17 [History] RX: Insulin Regular, Human [Novolin R] 5 unit SQ TID 12/26/17 [History] RX: Metformin HCl 2,000 mg PO QPM 12/26/17 [History] Allergies/Adverse Reactions: Allergy/AdvReac Type Severity Reaction Status Date / Time No Known Allergies Allergy Verified 08/24/17 12:30 Date of admission: 12/26/17 13:40 Primary care physician: Adri Liu MD Consults: 12/26/17 13:25 Consult to Oncology Hematology [CONS] Stat Consulting Provider: Bea Orozco Reason for Consult: Pancytopenia, petechial rash. Time Notified: 13:25 Call Completed: Yes 12/26/17 14:32 Consult to Pipeline Engineer [CONS] Routine Reason for SW Consult: Family would like to discuss setting up Medical POA. 12/27/17 15:11 Consult to Rheumatology [CONS] Routine Consulting Provider: Derek Saldaña Reason for Consult: pancytopenia, purpura, r/o vasculitis Call Completed: Yes 12/28/17 09:43 Consult to Nephrology [CONS] Routine Consulting Provider: [facility] [place]/ISA/VIANNEY/ALISA Reason for Consult: AMGGIE potential vasculitis Call Completed: Yes - Constitutional Vitals: Temp Pulse Resp BP Pulse Ox 98.1 F 58 16 150/67 97 12/28/17 10:10 12/28/17 10:10 12/28/17 10:10 12/28/17 10:10 12/28/17 10:10 Exam: General: Alert and oriented. NAD. HEENT: EOMI, normocephalic, atraumatic CV: Bradycardic, regular rythm, no murmurs. nomral S1 and S2 Lungs: CTAB, no wheezing noted Abdomen: Soft, non-tender, bs noted, non-distended Extremities: no edema or tenderness; no joint swelling or clubbing Skin: Bilateral LE flat, non-palpable, peticheal rash that extends from the upper thighs down to the ankles Neuro: No focal deficits Psych: answers questions appropriately - Patient Status Disposition: Transfer SNF Condition: Good Overall status at discharge: patient is progressing back to baseline - Discharge Instructions Follow Up With: Rena Starks MD [Partnered Physician] - 01/16/18 1:30 pm (2-3 week follow up.) Bea Roy MD [Partnered Physician] - 12/31/17 3:15 pm Derek Saldaña DO [Partnered Physician] - 01/15/18 8:30 am - Diet and Activity Activity: increase activity as tolerated Diet: diabetic diet, low salt diet <Thallapaneni,Rambabu - Last Filed: 12/28/17 18:02> Orders not resulted at time of discharge: Pending orders 12/26/17 19:42 MPO/PR3 (ANCA) Antibodies Routine 12/27/17 04:52 [place] Lambda Qnt FLC w Ratio AM 0400 Protein Electrophoresis AM 0400 12/27/17 14:52 UA w. reflex culture [Urinalysis Reflex Cult & Micro] [URIN] Stat 12/27/17 15:49 MINNIE Titer by IFA Routine CCP IgG Routine 12/27/17 20:35 Urine Protein Creat Ratio Neche [UCHEM] Routine 12/28/17 05:21 Anti-Neutrophil Cytoplasmic Ab Routine SSA 52&60 (Anti-RO) Antibodies Routine 12/28/17 10:25 Urinalysis reflex Microscopic [URIN] Stat Urine Microalbumin Random [UCHEM] Routine Urine Protein Creat Ratio Neche [UCHEM] Routine 12/28/17 13:58 MINNIE IgG OLIVA rflx IFA Routine Cryoglobulin Routine - Discharge Diagnosis (1) MAGGIE (acute kidney injury) Status: Inactive (2) Pancytopenia Status: Acute (3) Hyponatremia Status: Acute (4) Hypocalcemia Status: Acute (5) Diabetes Status: Chronic Qualifiers: Diabetes mellitus type: type 2 Diabetes mellitus intermediate insulin use: with oil heaterman use Diabetes mellitus complication status: without complication Qualified Code(s): E11.9 - Type 2 diabetes mellitus without complications; Z79.4 - [facility] (current) use of insulin Hospital course: Ms. Johnson is a 82 year old female - Time Spent with Patient Total time spent providing and/or coordinating discharge services: Date of admission: 12/26/17 13:40 Primary care physician: Adri Liu MD Consults: 12/26/17 13:25 Consult to Oncology Hematology [CONS] Stat Consulting Provider: Bea Orozco Reason for Consult: Pancytopenia, petechial rash. Time Notified: 13:25 Call Completed: Yes 12/26/17 14:32 Consult to Pipeline Engineer [CONS] Routine Reason for SW Consult: Family would like to discuss setting up Medical POA. 12/27/17 15:11 Consult to Rheumatology [CONS] Routine Consulting Provider: Derek Saldaña Reason for Consult: pancytopenia, purpura, r/o vasculitis Call Completed: Yes 12/28/17 09:43 Consult to Nephrology [CONS] Routine Consulting Provider: [facility] [place]/ISA/VIANNEY/ALISA Reason for Consult: MAGGIE potential vasculitis Call Completed: Yes - Constitutional Vitals: Temp Pulse Resp BP Pulse Ox 97.7 F 63 16 122/63 98 12/28/17 14:05 12/28/17 14:05 12/28/17 14:05 12/28/17 14:05 12/28/17 14:05 - Attending Attestation I examined this patient and my medical decision-making was reviewed with the Resident Physician Dr. Steinberg. I agree with the documented findings, disposition and treatment plan as described except to the extent set forth below. Ms. Johnson is a 82 year old female with PMH of HTN, CHF, HLD, DM who presented to ER with b/l LE rash started 2 days ago. She also happened to have pancytopenia, acute kidney injury, abnormal LFTS. Pt denied any CP SOB. Gen: A, AO x3 Chest: Diminished BS b/l Heart: S1S2 + RRR no murmurs abd: Soft NT BS+ Skin: Improving Non palpable, non blanching rash, diffuse rash b/l LE more pronounced over distal part of legs extending into medial thigh region a.p 1. Acute skin rash possible small vessel disease / vasculitis concerning for auto immune process Initiated extensive work up.. Can follow up as an out pt Derm wanted to do out pt skin biopsy Heme Onc also planning on doing out pt [place] Scheduled for out pt f/u with Dermatology, Rheumatology and Heme Onc
--- NOTE | 2017-12-28 13:24 | Physician Discharge Referral ---
[facility]Care Referral Info Transfer To: [facility] - Diagnosis (1) Pancytopenia Priority: Primary Status: Acute (2) Diabetes Priority: Secondary Status: Chronic (3) MAGGIE (acute kidney injury) Priority: Secondary Status: Resolved (4) Petechial rash Priority: Secondary Status: Acute (5) Abnormal LFTs Priority: Secondary Status: Acute (6) Microscopic hematuria Priority: Secondary Status: Acute - Transfer Medications Home Medications: Aspirin [Lo-Dose Aspirin EC] 81 mg PO DAILY 08/24/17 [History] Carvedilol [Coreg] 25 mg PO BID 08/24/17 [History] Ezetimibe [Zetia] 10 mg PO DAILY 08/24/17 [History] Lisinopril [Zestril] 5 mg PO DAILY 08/24/17 [History] SitaGLIPtin [Januvia] 100 mg PO DAILY 08/24/17 [History] Spironolactone [Aldactone] 25 mg PO DAILY 08/24/17 [History] Cyanocobalamin/Cobamamide [B-12 5,000 Mcg Sublingual Tab] 1 each SL DAILY #90 tab.subl 08/27/17 [Rx] Ergocalciferol (VITAMIN D2) [Drisdol (50,000 Unit)] 50,000 unit PO QWEEK #15 capsule 08/27/17 [Rx] Ferrous Sulfate 325 mg PO DAILY #90 tablet 08/27/17 [Rx] Phos-NaK [Neutra-Phos] 1 each PO DAILY #15 powd.pack 08/27/17 [Rx] Sennosides/Docusate Sodium [Senna Plus] 1 each PO BID tablet 08/27/17 [Rx] Thiamine (B-1) [Vitamin B-1] 200 mg PO DAILY #180 tablet 08/27/17 [Rx] Atorvastatin [Lipitor] 40 mg PO HS 12/26/17 [History] Furosemide [Lasix] 20 mg PO DAILY 12/26/17 [History] Insulin Glargine,Hum.rec.anlog [Basaglar Kwikpen U-100] 17 unit SQ QAM 12/26/17 [History] Insulin Glargine,Hum.rec.anlog [Basaglar Kwikpen U-100] 20 unit SQ HS 12/26/17 [History] Insulin Regular, Human [Novolin R] 5 unit SQ TID 12/26/17 [History] Metformin HCl 2,000 mg PO QPM 12/26/17 [History] Allergies/Adverse Reactions: Allergy/AdvReac Type Severity Reaction Status Date / Time No Known Allergies Allergy Verified 08/24/17 12:30 - Respiratory Orders Smoking Cessation: Smoking cessation has been advised. For more information, call the [place] Tobacco Quit Line at 0-073-PVLS-NOW. CERTIFICATION: I certify that the transfer of the above named patient to an Extended Care Facility is necessary for the continuing treatment of the diagnosis listed. The above information is true and accurate reflection of patient's current condition. Confidential - Redisclosure prohibited without a patient's written consent.
[2017-12-28 14:10] VITALS: BP 122/63
[2017-12-30 09:51] LABS: Myeloperoxidase Ab 0 AU/mL (0-19); Serine Protease-3 Antibody 2 AU/mL (0-19)
[2017-12-30 15:54] LABS: Beta Globulin (PEP) 0.57 g/dL (0.48-1.10)
[2017-12-31 03:10] LABS: Kappa Qnt Free Light Chains 43.6 mg/dL (0.33-1.94); Lambda Qnt Free Light Chains 3.73 mg/dL (0.57-2.63)
[2017-12-31 08:03] LABS: IFE Reflexed NOT DONE
[2017-12-31 08:03] LABS: ANA Titer by IFA <1:80 (<1:80)
[2017-12-31 08:12] LABS: SSA 52 (Anti-RO) Antibody 3 AU/mL (0-40); SSA 60 (Anti-RO) Antibody 0 AU/mL (0-40)
[2017-12-31 15:12] LABS: ANA IgG by ELISA NONE DETECTED (None Detected)
== END 2017-12-28 15:20 ==
LOC: EMEROOARM 10:50 → 3ANU 10:50
PROVIDERS: ADMIT Internal Medicine; ATTEND Internal Medicine

== ENCOUNTER 2018-01-11 14:39 | Inpatient (IN) ==
[2018-01-11] MEDS ORDERED: 0.9 % Sodium Chloride 1,000 ML IVC ONE (14:51)
--- NOTE | 2018-01-11 14:52 | Emergency Department Note ---
Disposition Clinical Impression: Hyperkalemia Diarrhea Qualifiers: Diarrhea type: unspecified type Qualified Code(s): R19.7 - Diarrhea, unspecified Disposition: Admitted As Inpatient Referrals: NONE,PCP [Non-Partnered Physician] - Forms: ED Satisfaction Letter Time of Disposition: 16:20 General Adult HPI - General Chief complaint: ED Recheck/Abnormal Lab/Rx Stated complaint: abnormal labs Time Seen by Provider: 01/11/18 14:41 Source: patient, EMS Mode of arrival: EMS Limitations: no limitations Nursing Notes Reviewed: Yes Vital Signs Reviewed: Yes - History of Present Illness HPI Narrative: Patient is an 82-year-old female with past medical history of hypertension, diabetes. She presents from [facility] due to concern for hyperkalemia. She states that she had a lab value that was drawn at outside facility with a potassium of 6. She was sent here for further evaluation. She does admit that she has had multiple episodes of diarrhea yesterday but denies any diarrhea today. Denies any blood in her stool. Denies any other nausea, vomiting, fevers, abdominal pain. Denies any other dysuria, hematuria. Denies any history of hyperkalemia in the past. Not experiencing any current chest pain or shortness of breath. She states that she does feel mildly dehydrated. - Related Data Home Medications Medication Instructions Recorded Confirmed Aspirin [Lo-Dose Aspirin EC] 81 mg PO DAILY 08/24/17 12/26/17 Carvedilol [Coreg] 25 mg PO BID 08/24/17 12/26/17 Ezetimibe [Zetia] 10 mg PO DAILY 08/24/17 12/26/17 Lisinopril [Zestril] 5 mg PO DAILY 08/24/17 12/26/17 SitaGLIPtin [Januvia] 100 mg PO DAILY 08/24/17 12/26/17 Spironolactone [Aldactone] 25 mg PO DAILY 08/24/17 12/26/17 Atorvastatin [Lipitor] 40 mg PO HS 12/26/17 12/26/17 Furosemide [Lasix] 20 mg PO DAILY 12/26/17 12/26/17 Insulin Glargine,Hum.rec.anlog 17 unit SQ QAM 12/26/17 12/26/17 [Basagldenice Sahapen U-100] Insulin Glargine,Hum.rec.anlog 20 unit SQ HS 12/26/17 12/26/17 [Basagldenice Sahapen U-100] Insulin Regular, Human [Novolin R] 5 unit SQ TID 12/26/17 12/26/17 Metformin HCl 2,000 mg PO QPM 12/26/17 12/26/17 Previous Rx's Medication Instructions Recorded Cyanocobalamin/Cobamamide [B-12 1 each SL DAILY #90 tab.subl 08/27/17 5,000 Mcg Sublingual Tab] Ergocalciferol (VITAMIN D2) 50,000 unit PO QWEEK #15 capsule 08/27/17 [Drisdol (50,000 Unit)] Ferrous Sulfate 325 mg PO DAILY #90 tablet 08/27/17 Phos-NaK [Neutra-Phos] 1 each PO DAILY #15 powd.pack 08/27/17 Sennosides/Docusate Sodium [Senna 1 each PO BID tablet 08/27/17 Plus] Thiamine (B-1) [Vitamin B-1] 200 mg PO DAILY #180 tablet 08/27/17 Allergies Allergy/AdvReac Type Severity Reaction Status Date / Time No Known Allergies Allergy Verified 01/11/18 14:55 All systems ED: reviewed and negative except as stated. Constitutional: Denies: fever Cardiovascular: Denies: chest pain Respiratory: Denies: cough Gastrointestinal: Reports: diarrhea. Denies: abdominal pain, nausea, vomiting Neurological: Denies: headache, numbness, paresthesias Past Medical History - Past Medical History Attestation: Yes The following information was validated with the patient. Source: patient Medical history: Reports: diabetes, hypertension Surgical history: Reports: cholecystectomy, hysterectomy Psychiatric history: Reports: no psych history - Social History Smoking Status: Never smoker Smokeless Tobacco Status: No Alcohol use: Reports: none Drug use: Reports: none Physical Exam - General Limitations: no limitations General appearance: alert, in no apparent distress - Head Head exam: atraumatic, normocephalic, normal inspection - Eye Eye exam: Present: normal appearance, PERRL, EOMI - ENT ENT exam: normal oropharynx, other (Mildly tacky mucous membranes) - Neck Neck exam: Present: normal inspection, full ROM, trachea midline - Chest Chest inspection: Present: normal inspection, symmetric chest wall rise - Respiratory Respiratory exam: Present: normal lung sounds bilaterally - Cardiovascular Cardiovascular exam: Present: regular rate, normal rhythm, normal heart sounds - Abdominal Exam Abdominal exam: Present: soft, Non-Tender. Absent: tenderness, distention, guarding, rebound, rigidity - Extremities Exam Extremities exam: Present: normal inspection, full ROM. Absent: tenderness, pedal edema - Neurological Exam Neurological exam: Present: alert, oriented X3 - Psychiatric Psychiatric exam: Present: normal affect, normal mood - Skin Skin exam: Present: warm, dry, intact, normal color Course Course Narrative: With concern for hyperkalemia, we will obtain EKG, basic blood work. EK01/11/2018 at 14:54. Sinus rhythm. Rate 66. CO 304. QRS 164. QTC 532. Widened QRS. No acute ST elevation or depression, present on old EKG 16:18 patient has a potassium of 7.7. No signs of UTI. Chronic anemia. We will give the patient and son 10 units, amp of dextrose 50, albuterol 3, calcium gluconate 2 g, Kayexalate. Patient was admitted to hospitalist at this time. Vital Signs O2 Sat by Pulse Oximetry 95 01/11/18 14:55 Temperature 98.2 F 01/11/18 14:57 Pulse Rate 68 01/11/18 14:57 Respiratory Rate 20 01/11/18 14:57 Blood Pressure 138/69 01/11/18 14:57 O2 Sat by Pulse Oximetry 95 01/11/18 14:57 Oxygen Delivery Oxygen Delivery Room Air Medical Decision Making - [facility] Narrative Medical decision making narrative: With concern for hyperkalemia, we will obtain EKG, basic blood work. EK01/11/2018 at 14:54. Sinus rhythm. Rate 66. CO 304. QRS 164. QTC 532. Widened QRS. No acute ST elevation or depression, present on old EKG 16:18 patient has a potassium of 7.7. No signs of UTI. Chronic anemia. We will give the patient and son 10 units, amp of dextrose 50, albuterol 3, calcium gluconate 2 g, Kayexalate. Patient was admitted to hospitalist at this time. - Medical Records Medical records reviewed: Yes I reviewed the patient's medical records. - Lab Data Lab results reviewed: Yes I reviewed the patient's lab results. Result diagrams: 01/11/18 15:07 01/11/18 15:07 Lab Results 01/11/18 01/11/18 01/11/18 Range/Units 14:48 15:07 15:07 WBC 6.6 (4.3-11.1) K/mcL RBC 2.77 L (3.82-4.97) M/mcL Hgb 8.5 L (11.5-15.4) g/dL Hct 26.2 L (35.3-44.9) % MCV 94.6 (83.0-100.0) fL MCH 30.7 (28.0-33.3) pg MCHC 32.4 (31.6-35.5) g/dL RDW 14.9 H (11.5-14.5) % Plt Count 176 (140-400) K/mcL MPV 10.3 (9.4-12.4) fL Sodium 131 L (136-145) mEq/L Potassium 7.7 H* (3.5-5.1) mEq/L Chloride 109 H (98-107) mEq/L Carbon Dioxide 19 L (23-29) mEq/L BUN 23 (8-23) mg/dL Creatinine 1.17 (0.60-1.20) mg/dL Est GFR ( Amer) 54 L (> 60) Est GFR (Non-Af Amer) 44 L (> 60) BUN/Creatinine Ratio 20 (6-26) Glucose 76 (70-105) mg/dL POC Glucose 96 (70-99) mg/dL Calculated Osmolality 274 L (280-300) Calcium 8.8 (8.6-10.3) mg/dL Urine Color (Yellow) Urine Clarity (Clear) Urine pH (5.0-8.0) pH Units Ur Specific [place] (1.010-1.025) Urine Protein (Neg-Trace) mg/dL Urine Glucose (UA) (Normal) mg/dL Urine Ketones (Negative) mg/dL Urine Blood (Negative) Urine Nitrite (Negative) Urine Bilirubin (Negative) Urine Urobilinogen (Normal) mg/dL Ur Leukocyte Esterase (Negative) Urine Microscopic RBC (0-3) per hpf Urine Microscopic WBC (0-3) per hpf Ur Squamous Epith Cells (None-Few) per lpf Urine Bacteria (None-Few) per hpf Hyaline Casts (None-Few) per lpf Ur Culture Indicated? (NO) 01/11/18 Range/Units 15:21 WBC (4.3-11.1) K/mcL RBC (3.82-4.97) M/mcL Hgb (11.5-15.4) g/dL Hct (35.3-44.9) % MCV (83.0-100.0) fL MCH (28.0-33.3) pg MCHC (31.6-35.5) g/dL RDW (11.5-14.5) % Plt Count (140-400) K/mcL MPV (9.4-12.4) fL Sodium (136-145) mEq/L Potassium (3.5-5.1) mEq/L Chloride (98-107) mEq/L Carbon Dioxide (23-29) mEq/L BUN (8-23) mg/dL Creatinine (0.60-1.20) mg/dL Est GFR ( Amer) (> 60) Est GFR (Non-Af Amer) (> 60) BUN/Creatinine Ratio (6-26) Glucose (70-105) mg/dL POC Glucose (70-99) mg/dL Calculated Osmolality (280-300) Calcium (8.6-10.3) mg/dL Urine Color Yellow (Yellow) Urine Clarity Clear (Clear) Urine pH 6.0 (5.0-8.0) pH Units Ur Specific [place] 1.011 (1.010-1.025) Urine Protein Negative (Neg-Trace) mg/dL Urine Glucose (UA) Normal (Normal) mg/dL Urine Ketones Negative (Negative) mg/dL Urine Blood Negative (Negative) Urine Nitrite Negative (Negative) Urine Bilirubin Negative (Negative) Urine Urobilinogen Normal (Normal) mg/dL Ur Leukocyte Esterase Trace H (Negative) Urine Microscopic RBC 0-3 (0-3) per hpf Urine Microscopic WBC 0-3 (0-3) per hpf Ur Squamous Epith Cells Few (None-Few) per lpf Urine Bacteria None Seen (None-Few) per hpf Hyaline Casts None Seen (None-Few) per lpf Ur Culture Indicated? YES A (NO) S.B.A.Erich. - S.B.A.Erich. Situation: Demographics, MOA Background: Presenting Complaint, Relevant PMH, Meds, & Allergies Assessment: Vital Signs, Course and respsone to treatment, Exam Concerns, Patient/Family Expectation, Pertinant Lab Results Recommendation: Barrier(s) to disposition, Recommendation based on pending studies, treatments, or consults S.B.A.R. Report Given to: Dr. Awan
--- NOTE | 2018-01-11 14:57 | Emergency Department Note ---
Disposition Clinical Impression: Hyperkalemia Diarrhea Qualifiers: Diarrhea type: unspecified type Qualified Code(s): R19.7 - Diarrhea, unspecified Disposition: Admitted As Inpatient Condition: Good Referrals: NONE,PCP [Primary Care Provider] - Forms: ED Satisfaction Letter General Adult HPI - General Time Seen by Provider: 01/11/18 14:41 Source: patient, EMS Mode of arrival: EMS Limitations: no limitations - History of Present Illness HPI Narrative: Pt is a 82 year old female presenting to the emergency department via EMS due to an abnormal potassium level of 6.6 taken at her group home. Otherwise pt states not complaints and aside from diabetes denies any additional medical problems that require daily medication. On presentation pt denies any chest pain, palpitations, lightheadness, dizziness, sob, nausea, fevers, chills, bodyaches, abdominal pain, urinary complaints or syncope episodes but does state 3 prior episodes of diarrhea associated w/ some mild generalized weakness. Remainder of ROS were negative unless otherwise noted Pt Subjective Complaint: Abnormal Labs Onset (ago): hour(s) Pain Scale: 0 - Related Data Home Medications Medication Instructions Recorded Confirmed Aspirin [Lo-Dose Aspirin EC] 81 mg PO DAILY 08/24/17 01/11/18 Carvedilol [Coreg] 25 mg PO BID 08/24/17 01/11/18 Ezetimibe [Zetia] 10 mg PO DAILY 08/24/17 01/11/18 Lisinopril [Zestril] 5 mg PO DAILY 08/24/17 01/11/18 SitaGLIPtin [Januvia] 100 mg PO DAILY 08/24/17 01/11/18 Spironolactone [Aldactone] 25 mg PO DAILY 08/24/17 01/11/18 Atorvastatin [Lipitor] 40 mg PO HS 12/26/17 01/11/18 Furosemide [Lasix] 20 mg PO DAILY 12/26/17 01/11/18 Insulin Glargine,Hum.rec.anlog 10 unit SQ QAM 12/26/17 01/11/18 [Basaglar Kwikpen U-100] Insulin Glargine,Hum.rec.anlog 15 unit SQ HS 12/26/17 01/11/18 [Basaglar Kwikpen U-100] Insulin Regular, Human [Novolin R] 5 unit SQ TID 12/26/17 01/11/18 Metformin HCl 2,000 mg PO QPM 12/26/17 01/11/18 Acetaminophen [Tylenol] 325 mg PO Q6HR PRN 01/11/18 01/11/18 Loperamide HCl [Imodium A-D] 2 mg PO ONCE PRN MDD 4 DOSES/24 01/11/18 01/11/18 HOURS Melatonin [Melatin] 3 mg PO HS PRN 01/11/18 01/11/18 Previous Rx's Medication Instructions Recorded Cyanocobalamin/Cobamamide [B-12 1 each SL DAILY #90 tab.subl 08/27/17 5,000 Mcg Sublingual Tab] Ergocalciferol (VITAMIN D2) 50,000 unit PO QWEEK #15 capsule 08/27/17 [Drisdol (50,000 Unit)] Ferrous Sulfate 325 mg PO DAILY #90 tablet 08/27/17 Phos-NaK [Neutra-Phos] 1 each PO DAILY #15 powd.pack 08/27/17 Sennosides/Docusate Sodium [Senna 1 each PO BID tablet 08/27/17 Plus] Thiamine (B-1) [Vitamin B-1] 200 mg PO DAILY #180 tablet 08/27/17 Allergies Allergy/AdvReac Type Severity Reaction Status Date / Time No Known Allergies Allergy Verified 01/11/18 16:38 All systems ED: reviewed and negative except as stated. Review of Systems: As Per HPI Constitutional: Reports: weakness. Denies: fever, chills Eyes: Denies: eye pain Cardiovascular: Denies: chest pain, palpitations, dyspnea on exertion, edema, syncope Respiratory: Denies: cough, dyspnea, wheezes Gastrointestinal: Reports: diarrhea. Denies: abdominal pain, nausea, vomiting, melena, hematochezia Integumentary: Denies: rash, abrasion Neurological: Reports: weakness. Denies: headache, numbness, paresthesias Psychiatric: Denies: anxiety, depression Endocrine: Reports: fatigue. Denies: heat or cold intolerance Hematological/Lymphatic: Denies: easy bleeding, easy bruising Past Medical History - Past Medical History Medical history: Reports: diabetes, hypertension Surgical history: Reports: cholecystectomy, hysterectomy Psychiatric history: Reports: no psych history - Social History Smoking Status: Never smoker Smokeless Tobacco Status: No Alcohol use: Reports: none Drug use: Reports: none Physical Exam - General Limitations: no limitations General appearance: alert, in no apparent distress - Head Head exam: atraumatic, normocephalic - Eye Eye exam: Present: normal appearance - Chest Chest inspection: Present: normal inspection, symmetric chest wall rise - Respiratory Respiratory exam: Present: normal lung sounds bilaterally. Absent: respiratory distress, wheezes, stridor - Cardiovascular Cardiovascular exam: Present: regular rate, normal rhythm, normal heart sounds - Abdominal Exam Abdominal exam: Present: soft, Non-Tender, normal bowel sounds - Neurological Exam Neurological exam: Present: alert, oriented X3 - Psychiatric Psychiatric exam: Present: normal affect - Skin Skin exam: Present: warm, dry, intact, normal color Course Vital Signs O2 Sat by Pulse Oximetry 95 01/11/18 14:55 Temperature 98.2 F 01/11/18 14:57 Pulse Rate 68 01/11/18 14:57 Respiratory Rate 20 01/11/18 14:57 Blood Pressure 138/69 01/11/18 14:57 O2 Sat by Pulse Oximetry 95 01/11/18 14:57 Oxygen Delivery Oxygen Delivery Room Air Medical Decision Making - Lab Data Result diagrams: 01/11/18 15:07 01/11/18 15:07 Lab Results 01/11/18 01/11/18 01/11/18 Range/Units 14:48 15:07 15:07 WBC 6.6 (4.3-11.1) K/mcL RBC 2.77 L (3.82-4.97) M/mcL Hgb 8.5 L (11.5-15.4) g/dL Hct 26.2 L (35.3-44.9) % MCV 94.6 (83.0-100.0) fL MCH 30.7 (28.0-33.3) pg MCHC 32.4 (31.6-35.5) g/dL RDW 14.9 H (11.5-14.5) % Plt Count 176 (140-400) K/mcL MPV 10.3 (9.4-12.4) fL Sodium 131 L (136-145) mEq/L Potassium 7.7 H* (3.5-5.1) mEq/L Chloride 109 H (98-107) mEq/L Carbon Dioxide 19 L (23-29) mEq/L BUN 23 (8-23) mg/dL Creatinine 1.17 (0.60-1.20) mg/dL Est GFR ( Amer) 54 L (> 60) Est GFR (Non-Af Amer) 44 L (> 60) BUN/Creatinine Ratio 20 (6-26) Glucose 76 (70-105) mg/dL POC Glucose 96 (70-99) mg/dL Calculated Osmolality 274 L (280-300) Calcium 8.8 (8.6-10.3) mg/dL Urine Color (Yellow) Urine Clarity (Clear) Urine pH (5.0-8.0) pH Units Ur Specific [place] (1.010-1.025) Urine Protein (Neg-Trace) mg/dL Urine Glucose (UA) (Normal) mg/dL Urine Ketones (Negative) mg/dL Urine Blood (Negative) Urine Nitrite (Negative) Urine Bilirubin (Negative) Urine Urobilinogen (Normal) mg/dL Ur Leukocyte Esterase (Negative) Urine Microscopic RBC (0-3) per hpf Urine Microscopic WBC (0-3) per hpf Ur Squamous Epith Cells (None-Few) per lpf Urine Bacteria (None-Few) per hpf Hyaline Casts (None-Few) per lpf Ur Culture Indicated? (NO) 01/11/18 Range/Units 15:21 WBC (4.3-11.1) K/mcL RBC (3.82-4.97) M/mcL Hgb (11.5-15.4) g/dL Hct (35.3-44.9) % MCV (83.0-100.0) fL MCH (28.0-33.3) pg MCHC (31.6-35.5) g/dL RDW (11.5-14.5) % Plt Count (140-400) K/mcL MPV (9.4-12.4) fL Sodium (136-145) mEq/L Potassium (3.5-5.1) mEq/L Chloride (98-107) mEq/L Carbon Dioxide (23-29) mEq/L BUN (8-23) mg/dL Creatinine (0.60-1.20) mg/dL Est GFR ( Amer) (> 60) Est GFR (Non-Af Amer) (> 60) BUN/Creatinine Ratio (6-26) Glucose (70-105) mg/dL POC Glucose (70-99) mg/dL Calculated Osmolality (280-300) Calcium (8.6-10.3) mg/dL Urine Color Yellow (Yellow) Urine Clarity Clear (Clear) Urine pH 6.0 (5.0-8.0) pH Units Ur Specific [place] 1.011 (1.010-1.025) Urine Protein Negative (Neg-Trace) mg/dL Urine Glucose (UA) Normal (Normal) mg/dL Urine Ketones Negative (Negative) mg/dL Urine Blood Negative (Negative) Urine Nitrite Negative (Negative) Urine Bilirubin Negative (Negative) Urine Urobilinogen Normal (Normal) mg/dL Ur Leukocyte Esterase Trace H (Negative) Urine Microscopic RBC 0-3 (0-3) per hpf Urine Microscopic WBC 0-3 (0-3) per hpf Ur Squamous Epith Cells Few (None-Few) per lpf Urine Bacteria None Seen (None-Few) per hpf Hyaline Casts None Seen (None-Few) per lpf Ur Culture Indicated? YES A (NO)
[2018-01-11 15:14] LABS: Hematocrit 26.2 % (35.3-44.9); Hemoglobin 8.5 g/dL (11.5-15.4); Mean Corpuscular HGB Conc 32.4 g/dL (31.6-35.5); Mean Corpuscular Hemoglobin 30.7 pg (28.0-33.3); Mean Corpuscular Volume 94.6 fL (83.0-100.0); Mean Platelet Volume 10.3 fL (9.4-12.4); Platelet Count 176 K/mcL (140-400); Red Blood Count 2.77 M/mcL (3.82-4.97); Red Cell Distribution Width 14.9 % (11.5-14.5)
[2018-01-11 15:27] LABS: Bilirubin,Urine Negative (Negative); Blood,Urine Negative (Negative); Clarity,Urine Clear (Clear); Color,Urine Yellow (Yellow); Glucose,Urine (UA) Normal (Normal); Ketones,Urine Negative (Negative); Leukocyte Esterase,Urine Trace (Negative); Nitrite,Urine Negative (Negative); Protein,Urine Negative (Neg-Trace); Specific Gravity,Urine 1.011 (1.010-1.025); Urobilinogen,Urine Normal (Normal)
[2018-01-11 15:30] LABS: Bacteria,Urine None Seen per hpf (None-Few); Hyaline Casts,Urine None Seen per lpf (None-Few); RBC,Urine 0-3 per hpf (0-3); Squamous Epithelial Cell,Urine Few per lpf (None-Few); WBC,Urine 0-3 per hpf (0-3)
[2018-01-11 15:59] LABS: Calcium 8.8 mg/dL (8.6-10.3); Potassium 7.7 mEq/L (3.5-5.1)
--- NOTE | 2018-01-11 15:59 | Emergency Department Note ---
Disposition Clinical Impression: Hyperkalemia Diarrhea Qualifiers: Diarrhea type: unspecified type Qualified Code(s): R19.7 - Diarrhea, unspecified Disposition: Admitted As Inpatient Condition: Good Referrals: NONE,PCP [Primary Care Provider] - Forms: ED Satisfaction Letter General Adult HPI - General Time Seen by Provider: 01/11/18 14:41 Source: patient, EMS Mode of arrival: EMS Limitations: no limitations - History of Present Illness Pain Scale: 0 - Related Data Home Medications Medication Instructions Recorded Confirmed Aspirin [Lo-Dose Aspirin EC] 81 mg PO DAILY 08/24/17 12/26/17 Carvedilol [Coreg] 25 mg PO BID 08/24/17 12/26/17 Ezetimibe [Zetia] 10 mg PO DAILY 08/24/17 12/26/17 Lisinopril [Zestril] 5 mg PO DAILY 08/24/17 12/26/17 SitaGLIPtin [Januvia] 100 mg PO DAILY 08/24/17 12/26/17 Spironolactone [Aldactone] 25 mg PO DAILY 08/24/17 12/26/17 Atorvastatin [Lipitor] 40 mg PO HS 12/26/17 12/26/17 Furosemide [Lasix] 20 mg PO DAILY 12/26/17 12/26/17 Insulin Glargine,Hum.rec.anlog 17 unit SQ QAM 12/26/17 12/26/17 [Basaglar Kwikpen U-100] Insulin Glargine,Hum.rec.anlog 20 unit SQ HS 12/26/17 12/26/17 [Basaglar Kwikpen U-100] Insulin Regular, Human [Novolin R] 5 unit SQ TID 12/26/17 12/26/17 Metformin HCl 2,000 mg PO QPM 12/26/17 12/26/17 Previous Rx's Medication Instructions Recorded Cyanocobalamin/Cobamamide [B-12 1 each SL DAILY #90 tab.subl 08/27/17 5,000 Mcg Sublingual Tab] Ergocalciferol (VITAMIN D2) 50,000 unit PO QWEEK #15 capsule 08/27/17 [Drisdol (50,000 Unit)] Ferrous Sulfate 325 mg PO DAILY #90 tablet 08/27/17 Phos-NaK [Neutra-Phos] 1 each PO DAILY #15 powd.pack 08/27/17 Sennosides/Docusate Sodium [Senna 1 each PO BID tablet 08/27/17 Plus] Thiamine (B-1) [Vitamin B-1] 200 mg PO DAILY #180 tablet 08/27/17 Allergies Allergy/AdvReac Type Severity Reaction Status Date / Time No Known Allergies Allergy Verified 01/11/18 14:55 Constitutional: Denies: fever Eyes: Denies: eye pain Cardiovascular: Denies: chest pain Respiratory: Denies: cough Gastrointestinal: Reports: diarrhea. Denies: abdominal pain, nausea, vomiting Integumentary: Denies: rash, abrasion Neurological: Denies: headache, numbness, paresthesias Psychiatric: Denies: anxiety, depression Endocrine: Reports: fatigue. Denies: heat or cold intolerance Hematological/Lymphatic: Denies: easy bleeding, easy bruising Past Medical History - Past Medical History Medical history: Reports: diabetes, hypertension Surgical history: Reports: cholecystectomy, hysterectomy Psychiatric history: Reports: no psych history - Social History Smoking Status: Never smoker Smokeless Tobacco Status: No Alcohol use: Reports: none Drug use: Reports: none Physical Exam - General Limitations: no limitations General appearance: alert, in no apparent distress Course Vital Signs O2 Sat by Pulse Oximetry 95 01/11/18 14:55 Temperature 98.2 F 01/11/18 14:57 Pulse Rate 68 01/11/18 14:57 Respiratory Rate 20 01/11/18 14:57 Blood Pressure 138/69 01/11/18 14:57 O2 Sat by Pulse Oximetry 95 01/11/18 14:57 Oxygen Delivery Oxygen Delivery Room Air Medical Decision Making - Lab Data Result diagrams: 01/11/18 15:07 01/11/18 15:07 Lab Results 01/11/18 01/11/18 01/11/18 Range/Units 14:48 15:07 15:07 WBC 6.6 (4.3-11.1) K/mcL RBC 2.77 L (3.82-4.97) M/mcL Hgb 8.5 L (11.5-15.4) g/dL Hct 26.2 L (35.3-44.9) % MCV 94.6 (83.0-100.0) fL MCH 30.7 (28.0-33.3) pg MCHC 32.4 (31.6-35.5) g/dL RDW 14.9 H (11.5-14.5) % Plt Count 176 (140-400) K/mcL MPV 10.3 (9.4-12.4) fL Sodium 131 L (136-145) mEq/L Potassium 7.7 H* (3.5-5.1) mEq/L Chloride 109 H (98-107) mEq/L Carbon Dioxide 19 L (23-29) mEq/L BUN 23 (8-23) mg/dL Creatinine 1.17 (0.60-1.20) mg/dL Est GFR ( Amer) 54 L (> 60) Est GFR (Non-Af Amer) 44 L (> 60) BUN/Creatinine Ratio 20 (6-26) Glucose 76 (70-105) mg/dL POC Glucose 96 (70-99) mg/dL Calculated Osmolality 274 L (280-300) Calcium 8.8 (8.6-10.3) mg/dL Urine Color (Yellow) Urine Clarity (Clear) Urine pH (5.0-8.0) pH Units Ur Specific [place] (1.010-1.025) Urine Protein (Neg-Trace) mg/dL Urine Glucose (UA) (Normal) mg/dL Urine Ketones (Negative) mg/dL Urine Blood (Negative) Urine Nitrite (Negative) Urine Bilirubin (Negative) Urine Urobilinogen (Normal) mg/dL Ur Leukocyte Esterase (Negative) Urine Microscopic RBC (0-3) per hpf Urine Microscopic WBC (0-3) per hpf Ur Squamous Epith Cells (None-Few) per lpf Urine Bacteria (None-Few) per hpf Hyaline Casts (None-Few) per lpf Ur Culture Indicated? (NO) 01/11/18 Range/Units 15:21 WBC (4.3-11.1) K/mcL RBC (3.82-4.97) M/mcL Hgb (11.5-15.4) g/dL Hct (35.3-44.9) % MCV (83.0-100.0) fL MCH (28.0-33.3) pg MCHC (31.6-35.5) g/dL RDW (11.5-14.5) % Plt Count (140-400) K/mcL MPV (9.4-12.4) fL Sodium (136-145) mEq/L Potassium (3.5-5.1) mEq/L Chloride (98-107) mEq/L Carbon Dioxide (23-29) mEq/L BUN (8-23) mg/dL Creatinine (0.60-1.20) mg/dL Est GFR ( Amer) (> 60) Est GFR (Non-Af Amer) (> 60) BUN/Creatinine Ratio (6-26) Glucose (70-105) mg/dL POC Glucose (70-99) mg/dL Calculated Osmolality (280-300) Calcium (8.6-10.3) mg/dL Urine Color Yellow (Yellow) Urine Clarity Clear (Clear) Urine pH 6.0 (5.0-8.0) pH Units Ur Specific [place] 1.011 (1.010-1.025) Urine Protein Negative (Neg-Trace) mg/dL Urine Glucose (UA) Normal (Normal) mg/dL Urine Ketones Negative (Negative) mg/dL Urine Blood Negative (Negative) Urine Nitrite Negative (Negative) Urine Bilirubin Negative (Negative) Urine Urobilinogen Normal (Normal) mg/dL Ur Leukocyte Esterase Trace H (Negative) Urine Microscopic RBC 0-3 (0-3) per hpf Urine Microscopic WBC 0-3 (0-3) per hpf Ur Squamous Epith Cells Few (None-Few) per lpf Urine Bacteria None Seen (None-Few) per hpf Hyaline Casts None Seen (None-Few) per lpf Ur Culture Indicated? YES A (NO) Critical Care Time Critical Care Time: Yes Total Critical Care Time: 35 Attestation: Critical care performed: Time is exclusive of separately billable procedures. Time includes: direct patient care, patient reassessment, coordination of patient care, interpretation of data (laboratory data, radiology data, and respiratory data), review of patient's medical records, medical consultation and documentation of patient care. Procedures included in critical care time: Procedures excluded from critical care time: Attestation Statement - Attestation Attestation: I examined this patient and my medical decision-making was reviewed with the Resident Physician. I agree with the documented findings, disposition and hadley tment plan as described except to the extent set forth below. Patient to the ED with high potassium. Sent from [facility]. She had outpatient labs done for her diarrhea. She has no complaints. On examination she is well appearing and pleasant. Her abdomen is soft. Heart regular rate and rhythm. Plan. Potassium level came back greater than 7. She is given bicarbonate, calcium, Kayexalate and albuterol. Her EKG has a chronic left bundle branch block. She is admitted to medicine.
[2018-01-11] MEDS ORDERED: Calcium Gluconate 2,000 MG in 0.9 % Sodium Chloride 100 ML IVPB ONE (16:06)
[2018-01-11] MEDS ORDERED: *HR* Dextrose 50 % in Water (Syg) 50 ML SYRINGE IVP ONE (16:06)
[2018-01-11] MEDS ORDERED: Insulin Regular, Human 100 UNIT/ML SQ ONE (16:06)
[2018-01-11] MEDS ORDERED: Albuterol 2.5 MG/3 ML NEBULIZER IH ONE (16:07)
[2018-01-11] MEDS ORDERED: Acetaminophen 325 MG TABLET PO PRN (16:54)
[2018-01-11] MEDS ORDERED: Naloxone 0.4 MG/ML INJ IVP PRN (16:54)
[2018-01-11] MEDS ORDERED: traMADol 50 MG TABLET PO PRN (16:54)
[2018-01-11] MEDS ORDERED: hydrALAZINE 10 MG TABLET PO PRN (17:04)
[2018-01-11 17:11] LABS: Potassium,Urine 14.7 mEq/L; Sodium, Urine 87.7 mEq/L
--- NOTE | 2018-01-11 17:11 | Internal Med History&Physical ---
Date of Encounter: 01/11/18 Time of Encounter: 17:09 Internal Medicine - H&P: HPI Admitted From: Long-term Nursing Facility Plans for Post Hospital Care: Transfer [facility] History of present illness: Ms. Johnson is a 82 year old female with past medical history of hypertension, diabetes. She presents from [facility] due to concern for hyperkalemia. She states that she had a lab value that was drawn at outside facility with a potassium of 6.6. She was sent here for further evaluation. She does admit that she has had multiple episodes of diarrhea yesterday but denies any diarrhea today. Denies any blood in her stool. Denies any other nausea, vomiting, fevers, abdominal pain. Denies any other dysuria, hematuria. Denies any history of hyperkalemia in the past. Not experiencing any current chest pain or shortness of breath. She states that she does feel mildly dehydrated. She received Kayexalate, IV Ca, Albuterol inhaler, and NaHCO3 at the ED. She was admitted as inpatient for further management. Past Med Surg Social Fam HX - Past Medical History Medical history: diabetes, hypertension Additional medical history: Type 2 Diabetic Psychiatric history: no psych history - Past Surgical History Surgical History: cholecystectomy, hysterectomy Additional surgical history: gastric ulcers - Social History Smoking Status: Never smoker Smokeless Tobacco Status: No Alcohol use: none Drug use: none Internal Medicine - H&P: Meds Aspirin [Lo-Dose Aspirin EC] 81 mg PO DAILY 08/24/17 [History] Carvedilol [Coreg] 25 mg PO BID 08/24/17 [History] Ezetimibe [Zetia] 10 mg PO DAILY 08/24/17 [History] Lisinopril [Zestril] 5 mg PO DAILY 08/24/17 [History] SitaGLIPtin [Januvia] 100 mg PO DAILY 08/24/17 [History] Spironolactone [Aldactone] 25 mg PO DAILY 08/24/17 [History] Cyanocobalamin/Cobamamide [B-12 5,000 Mcg Sublingual Tab] 1 each SL DAILY #90 tab.subl 08/27/17 [Rx] Ergocalciferol (VITAMIN D2) [Drisdol (50,000 Unit)] 50,000 unit PO QWEEK #15 capsule 08/27/17 [Rx] Ferrous Sulfate 325 mg PO DAILY #90 tablet 08/27/17 [Rx] Phos-NaK [Neutra-Phos] 1 each PO DAILY #15 powd.pack 08/27/17 [Rx] Sennosides/Docusate Sodium [Senna Plus] 1 each PO BID tablet 08/27/17 [Rx] Thiamine (B-1) [Vitamin B-1] 200 mg PO DAILY #180 tablet 08/27/17 [Rx] Atorvastatin [Lipitor] 40 mg PO HS 12/26/17 [History] Furosemide [Lasix] 20 mg PO DAILY 12/26/17 [History] Insulin Glargine,Hum.rec.anlog [Basaglar Kwikpen U-100] 10 unit SQ QAM 12/26/17 [History] Insulin Glargine,Hum.rec.anlog [Basaglar Kwikpen U-100] 15 unit SQ HS 12/26/17 [History] Insulin Regular, Human [Novolin R] 5 unit SQ TID 12/26/17 [History] Metformin HCl 2,000 mg PO QPM 12/26/17 [History] Acetaminophen [Tylenol] 325 mg PO Q6HR PRN 01/11/18 [History] Loperamide HCl [Imodium A-D] 2 mg PO ONCE PRN MDD 4 DOSES/24 HOURS 01/11/18 [History] Melatonin [Melatin] 3 mg PO HS PRN 01/11/18 [History] Allergy/AdvReac Type Severity Reaction Status Date / Time No Known Allergies Allergy Verified 01/11/18 16:38 All Systems PM: A 10-system review of systems was performed and is negative for pertinent findings except as documented above in the HPI. Review of systems: REVIEW OF SYSTEMS: CONSTITUTIONAL: No weight loss, fever, chills, weakness or fatigue. HEENT: Eyes: No visual loss, blurred vision, double vision or yellow sclerae. Ears, Nose, Throat: No hearing loss, sneezing, congestion, runny nose or sore throat. SKIN: No rash or itching. CARDIOVASCULAR: No chest pain, chest pressure or chest discomfort. No palpitations or edema. RESPIRATORY: No shortness of breath, cough or sputum. GASTROINTESTINAL: No anorexia, nausea, vomiting. No abdominal pain or blood. GENITOURINARY: No dysuria, urgency, or frequency. NEUROLOGICAL: No headache, dizziness, syncope, paralysis, ataxia, numbness or tingling in the extremities. No change in bowel or bladder control. MUSCULOSKELETAL: No muscle, back pain, joint pain or stiffness. HEMATOLOGIC: No anemia, bleeding or bruising. LYMPHATICS: No enlarged nodes. No history of splenectomy. PSYCHIATRIC: No history of depression or anxiety. ENDOCRINOLOGIC: No reports of sweating, cold or heat intolerance. No polyuria or polydipsia. - Constitutional Vitals: Temp Pulse Resp BP Pulse Ox 98.2 F 72 19 146/72 98 01/11/18 14:57 01/11/18 16:30 01/11/18 16:55 01/11/18 16:30 01/11/18 16:55 General appearance: Present: cooperative, A&O X 3, answers questions appropriately Exam: PHYSICAL EXAMINATION: GENERAL APPEARANCE: The patient is alert, oriented and in no acute distress. HEENT: Head is normocephalic. The sinuses are nontender. Pupils are equal and reactive. The nares are patent. Oropharynx clear without lesions. NECK: Supple without lymphadenopathy. HEART: Regular rate and rhythm. LUNGS: No crackles or wheezes are heard. ABDOMEN: Soft, nontender, nondistended with good bowel sounds heard. Inguinal area is normal. EXTREMITIES: Without cyanosis, clubbing or edema. NEUROLOGICAL: Gross nonfocal. SKIN: Warm and dry without any rash. Internal Med - H&P Results - Labs CBC & Chem 7: 01/11/18 15:07 01/11/18 15:07 Labs: Short CBC 01/11/18 Range/Units 15:07 WBC 6.6 (4.3-11.1) K/mcL Hgb 8.5 L (11.5-15.4) g/dL Hct 26.2 L (35.3-44.9) % Plt Count 176 (140-400) K/mcL BMP 01/11/18 15:07 Sodium 131 L Potassium 7.7 H* Chloride 109 H Carbon Dioxide 19 L BUN 23 Creatinine 1.17 Glucose 76 Calcium 8.8 Urine 01/11/18 Range/Units 15:21 Urine Color Yellow (Yellow) Urine Clarity Clear (Clear) Urine pH 6.0 (5.0-8.0) pH Units Ur Specific [place] 1.011 (1.010-1.025) Urine Protein Negative (Neg-Trace) mg/dL Urine Glucose (UA) Normal (Normal) mg/dL - Assessment and plan (1) Hyperkalemia Current Visit: Yes Status: Acute Assessment and plan: 82-year-old female with past medical history of diabetes, CKD, hypertension, chronic diarrhea, and hyperkalemia presented with another episode of hyperkalemia. By reviewing the labs in the past 4 years, it was documented that patient had multiple events of hyperkalemia. She is supposed to see the renal doctor recently for chronic renal failure. - Patient received Kayexalate, IV calcium, bicarbonate, and albuterol inhaler at the ED, BMP will be repeated within 2 hours. We will continue Kayexalate, increase the dose of Lasix, hold Aldactone and lisinopril, continue telemetry monitoring. We will repeat BMP in the morning as well. 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 She is also taking lisinopril and Aldactone, which both can cause m etabolic acidosis and hyperkalemia if they are not appropriately dosed. - Check urine sodium, potassium, and chloride, calculate urine anion gap. - Hold her lisinopril and Aldactone as described above. - May consult renal if indicated. (2) Hyponatremia Current Visit: Yes Status: Acute Assessment and plan: As discussed above, patient also has chronic hyponatremia, which could also be caused by renal tubular acidosis type 4, or this could be the side effect of lisinopril plus Aldactone. (3) Metabolic acidosis Current Visit: Yes Status: Acute Assessment and plan: Non-anion gap metabolic acidosis, management as described as above. (4) DMII (diabetes mellitus, type 2) Current Visit: No Status: Chronic Assessment and plan: We will continue home insulin regimen, started patient on insulin sliding scale, hold oral agent for now. Qualifiers: Diabetes mellitus machine long goods helper insulin use: with machine long goods helper use Chronic kidney disease stage: stage 3 (moderate) Qualified Code(s): E11.22 - Type 2 diabetes mellitus with diabetic chronic kidney disease; N18.3 - Chronic kidney disease, stage 3 (moderate); Z79.4 - shelter (current) use of insulin (5) HTN (hypertension) Current Visit: No Status: Chronic Assessment and plan: Patient has history of of hypertension, she is on multiple blood pressure medicine. BP medicine was adjusted as described as above. We will discontinue lisinopril and Aldactone. We will increase the dose of Lasix, and add hydralazine to maintain good BP control. Qualifiers: Hypertension type: essential hypertension Qualified Code(s): I10 - Essential (primary) hypertension (6) Iron deficiency anemia Current Visit: No Status: Acute Assessment and plan: Continue home medications Qualifiers: Iron deficiency anemia type: unspecified iron deficiency Qualified Code(s): D50.9 - Iron deficiency anemia, unspecified (7) Vitamin B12 deficiency Current Visit: No Status: Acute Assessment and plan: Continue home medication. (8) Diarrhea Current Visit: No Status: Chronic Assessment and plan: Patient has chronic diarrhea. She had a remote abdominal surgery which was involved eith removal several nerves as described by the patient. Ever since, she had diarrhea. The etiology of diarrhea is most likely secretory instead of infectious, continue home Imodium. Qualifiers: Diarrhea type: unspecified type Qualified Code(s): R19.7 - Diarrhea, unspecified (9) DVT prophylaxis Current Visit: Yes Status: Acute Assessment and plan: Heparin subcutaneous. - Time Spent With Patient Total time spent is 90 mins, greater than 50% in coordination of care (as documented) at patient's floor/unit and/or counseling patient. Greater than 35 minutes
[2018-01-11] MEDS ORDERED: D5% in Water 1,000 ML IVC PRN (17:34)
[2018-01-11] MEDS ORDERED: *HR* Dextrose 50 % in Water (Syg) 50 ML SYRINGE IVP PRN (17:34)
[2018-01-11] MEDS ORDERED: Dextrose Gel 15 GM/37.5 ML TUBE PO PRN ×2 (17:34)
[2018-01-11 18:40] LABS: Calcium 9.1 mg/dL (8.6-10.3); Potassium 6.6 mEq/L (3.5-5.1)
[2018-01-11] MEDS: Insulin LISPRO 300 UNITS/3 ML VIAL SQ SCH (20:40)
[2018-01-11] MEDS ORDERED: Insulin DETEMIR 100 UNIT/ML X5UNITS SQ SCH (21:00)
[2018-01-11] MEDS ORDERED: Insulin Regular, Human 100 UNIT/ML SQ SCH (21:00)
[2018-01-11] MEDS: Melatonin 3 MG TABLET PO PRN (21:04)
[2018-01-11] MEDS: *HR* Heparin 5,000 UNIT/ML VIAL SQ SCH (21:04)
[2018-01-12 03:59] LABS: Basophils % 0.7 %; Eosinophils # 0.1 K/mcL (0.0-0.6); Eosinophils % 1.6 %; Hematocrit 23.9 % (35.3-44.9); Hemoglobin 7.6 g/dL (11.5-15.4); Immature Granulocytes % 0.3 % (0-4); Lymphocytes # 1.3 K/mcL (0.6-4.6); Lymphocytes % 21.7 %; Mean Corpuscular HGB Conc 31.8 g/dL (31.6-35.5); Mean Corpuscular Hemoglobin 30.3 pg (28.0-33.3); Mean Corpuscular Volume 95.2 fL (83.0-100.0); Mean Platelet Volume 10.5 fL (9.4-12.4); Monocytes # 0.5 K/mcL (0.0-1.3); Monocytes % 8.7 %; Neutrophils # 4.1 K/mcL (1.6-8.9); Platelet Count 152 K/mcL (140-400); Red Blood Count 2.51 M/mcL (3.82-4.97); Red Cell Distribution Width 15.1 % (11.5-14.5)
[2018-01-12 04:22] LABS: BUN/Creatinine Ratio 18 (6-26); Blood Urea Nitrogen 18 mg/dL (8-23); Calcium 8.4 mg/dL (8.6-10.3); Carbon Dioxide 18 mEq/L (23-29); Chloride 112 mEq/L (98-107); Glucose 80 mg/dL (70-105); Osmolality,Calculated 281 (280-300); Potassium 5.6 mEq/L (3.5-5.1); Sodium 135 mEq/L (136-145); eGFR For Non-African Americans 53 (> 60)
[2018-01-12] MEDS: *HR* Heparin 5,000 UNIT/ML VIAL SQ SCH ×2 (06:03→06:09)
[2018-01-12] MEDS: Insulin LISPRO 300 UNITS/3 ML VIAL SQ SCH ×4 (08:52→20:49)
[2018-01-12] MEDS: Thiamine (B-1) 100 MG TABLET PO SCH (08:53)
[2018-01-12] MEDS: Aspirin Enteric Coated 81 MG Tablet PO SCH (08:53)
[2018-01-12] MEDS: Furosemide 20 MG TABLET PO SCH ×2 (08:54→16:27)
[2018-01-12] MEDS: Cyanocobalamin (B-12) 1,000 MCG TABLET PO SCH (08:58)
[2018-01-12] MEDS ORDERED: Cyanocobalamin (B-12) 1,000 MCG TABLET PO SCH (09:00)
[2018-01-12] MEDS ORDERED: Furosemide 20 MG TABLET PO SCH (09:00)
[2018-01-12] MEDS ORDERED: Insulin DETEMIR 100 UNIT/ML X5UNITS SQ SCH (09:00)
[2018-01-12] MEDS ORDERED: *HR* SitaGLIPtin 25 MG TABLET PO SCH (09:00)
--- NOTE | 2018-01-12 13:10 | Internal Med Progress Note ---
Hospitalist Progress Note - Encounter Date of Encounter: 01/12/18 Time of Encounter: 13:09 - Subjective Interval History: Patient seen and evaluated at bedside. she reports doing well, but reports loose stool for the past couple of days. denies nausea, vomiting or abdominal pain. No chest pain or shortness of breath. - Exam Vitals: Temp Pulse Resp BP Pulse Ox 98.2 F 71 16 142/71 93 01/12/18 11:10 01/12/18 11:10 01/12/18 11:10 01/12/18 11:10 01/12/18 11:10 Exam: General: Alert and oriented x2. In no distress. Skin: Normal color, no rash, no lesions. HEENT: EOM, pupils equal, round and reactive. Cardiovascular: RRR, Normal S1 & S2, no rubs, murmurs or gallops. Lungs: Normal breath sounds, no wheezes or crackles. Abdomen: Obese, Soft, non-tender, no rigidity. Extremities: No deformity, no edema or tenderness, no joint swelling or clubbing. Neurological: CN II-XII intact Rest of the physical exam is non contributory - Assessment and Plan (1) Hyperkalemia Current Visit: Yes Status: Acute Assessment and Plan: Possible due to Potassium replacement. Patient has been taking potasium/Posph replacement Plan DC Netro/posph Kayaxelate 30mg/PO once will repeat BMP at 4pm Telemetry monitoring (2) DMII (diabetes mellitus, type 2) Current Visit: No Status: Chronic Assessment and Plan: Plan Decrease levemir to 10 BID DC levemir 15 units HS continue Lispro low dose sliding scale carb controlled diet. (3) HTN (hypertension) Current Visit: No Status: Chronic Assessment and Plan: BP is well controlled. continue carvedilol 25mg/po BID and furosemide 20mg/PO BID (4) Iron deficiency anemia Current Visit: No Status: Acute Assessment and Plan: H&H slightly dropped today. No signs of active bleeding FOTB DC heparin until FOBT resulted will continue to monitor, will consider transfusing 1 PRBC if Hb <7, Hct <23 or patient becomes symptomatic. (5) Vitamin B12 deficiency Current Visit: No Status: Chronic Assessment and Plan: Continue B12 replacement. (6) Hyponatremia Current Visit: Yes Status: Resolved (7) Diarrhea Current Visit: No Status: Resolved Assessment and Plan: Patient reports no bowel movement today. (8) Metabolic acidosis Current Visit: Yes Status: Acute Assessment and Plan: unclear etiology will add Sodium bicarbonate 650mg/PO TID, goal serum HCo3 >25 DVT Prophylaxis: mechanical dvt prophylaxis with plexipulses. heparin held due to drop in H&H - Summary of Assessment and Plan Summary of Assessment and Plan: Patient to remain in the hospital due to hyperkalemia. - Time Spent with Patient Total time spent is greater than 50% in coordination of care (as documented) at patient's floor/unit and/or counseling patient: Greater than 35 minutes (40) Plan of Care Discussed with: patient (the family and nurse.) Internal Medicine: Result - Labs CBC & Chem 7: 01/12/18 03:24 01/12/18 03:24 Labs: Short CBC 01/11/18 01/12/18 Range/Units 15:07 03:24 WBC 6.6 6.1 (4.3-11.1) K/mcL Hgb 8.5 L 7.6 L (11.5-15.4) g/dL Hct 26.2 L 23.9 L (35.3-44.9) % Plt Count 176 152 (140-400) K/mcL Neutrophils # 4.1 (1.6-8.9) K/mcL BMP 01/11/18 01/11/18 01/12/18 15:07 18:03 03:24 Sodium 131 L 134 L 135 L Potassium 7.7 H* 6.6 H* 5.6 H Chloride 109 H 112 H 112 H Carbon Dioxide 19 L 18 L 18 L BUN 23 22 18 Creatinine 1.17 1.13 1.01 Glucose 76 45 L 80 Calcium 8.8 9.1 8.4 L Urine 01/11/18 Range/Units 15:21 Urine Color Yellow (Yellow) Urine Clarity Clear (Clear) Urine pH 6.0 (5.0-8.0) pH Units Ur Specific [place] 1.011 (1.010-1.025) Urine Protein Negative (Neg-Trace) mg/dL Urine Glucose (UA) Normal (Normal) mg/dL Consult Discharge Plan - Plan Referrals: NONE,PCP [Primary Care Provider] - (2) DMII (diabetes mellitus, type 2) Qualifiers: Diabetes mellitus ad terminal makeup operator insulin use: with fci use Chronic kidney disease stage: stage 3 (moderate) Qualified Code(s): E11.22 - Type 2 diabetes mellitus with diabetic chronic kidney disease; N18.3 - Chronic kidney disease, stage 3 (moderate); Z79.4 - [facility] (current) use of insulin (3) HTN (hypertension) Qualifiers: Hypertension type: essential hypertension Qualified Code(s): I10 - Essential (primary) hypertension (4) Iron deficiency anemia Qualifiers: Iron deficiency anemia type: unspecified iron deficiency Qualified Code(s): D50.9 - Iron deficiency anemia, unspecified (7) Diarrhea Qualifiers: Diarrhea type: unspecified type Qualified Code(s): R19.7 - Diarrhea, uns pecified
[2018-01-12 16:34] LABS: Calcium 8.4 mg/dL (8.6-10.3); Potassium 5.2 mEq/L (3.5-5.1)
[2018-01-12] MEDS: Insulin DETEMIR 100 UNIT/ML X5UNITS SQ SCH (20:55)
[2018-01-12] MEDS: Melatonin 3 MG TABLET PO PRN (20:56)
[2018-01-13 05:21] LABS: Basophils # 0.1 K/mcL (0.0-0.2); Basophils % 0.9 %; Eosinophils # 0.1 K/mcL (0.0-0.6); Eosinophils % 1.5 %; Hemoglobin 8.5 g/dL (11.5-15.4); Immature Granulocytes % 0.2 % (0-4); Lymphocytes # 1.2 K/mcL (0.6-4.6); Lymphocytes % 22.6 %; Mean Corpuscular HGB Conc 32.7 g/dL (31.6-35.5); Mean Corpuscular Hemoglobin 30.6 pg (28.0-33.3); Mean Corpuscular Volume 93.5 fL (83.0-100.0); Mean Platelet Volume 10.2 fL (9.4-12.4); Monocytes # 0.5 K/mcL (0.0-1.3); Monocytes % 9.4 %; Neutrophils # 3.5 K/mcL (1.6-8.9); Platelet Count 147 K/mcL (140-400); Red Blood Count 2.78 M/mcL (3.82-4.97); Red Cell Distribution Width 15.1 % (11.5-14.5); Segmented Neutrophils % 65.4 %
[2018-01-13 05:41] LABS: BUN/Creatinine Ratio 18 (6-26); Blood Urea Nitrogen 18 mg/dL (8-23); Calcium 8.9 mg/dL (8.6-10.3); Carbon Dioxide 22 mEq/L (23-29); Chloride 110 mEq/L (98-107); Glucose 40 mg/dL (70-105); Magnesium 1.6 mg/dL (1.6-2.6); Osmolality,Calculated 285 (280-300); Phosphorous 4.4 mg/dL (2.7-4.5); Potassium 4.2 mEq/L (3.5-5.1); Sodium 138 mEq/L (136-145); eGFR For Non-African Americans 54 (> 60)
[2018-01-13 07:13] VITALS: BP 162/81
[2018-01-13] MEDS: Aspirin Enteric Coated 81 MG Tablet PO SCH (08:05)
[2018-01-13] MEDS: Thiamine (B-1) 100 MG TABLET PO SCH (08:05)
[2018-01-13] MEDS: Cyanocobalamin (B-12) 1,000 MCG TABLET PO SCH (08:05)
[2018-01-13] MEDS: Furosemide 20 MG TABLET PO SCH (08:05)
[2018-01-13] MEDS: Insulin DETEMIR 100 UNIT/ML X5UNITS SQ SCH (08:05)
[2018-01-13] MEDS: Insulin LISPRO 300 UNITS/3 ML VIAL SQ SCH (08:06)
--- NOTE | 2018-01-13 09:33 | Physician Discharge Referral ---
ExtendedCare Referral Info Transfer To: [facility] - Diagnosis (1) Hyperkalemia Priority: Primary Status: Resolved (2) DMII (diabetes mellitus, type 2) Priority: Secondary Status: Chronic (3) HTN (hypertension) Priority: Secondary Status: Chronic (4) Iron deficiency anemia Priority: Secondary Status: Acute (5) Vitamin B12 deficiency Priority: Secondary Status: Chronic (6) Hyponatremia Priority: Secondary Status: Resolved (7) Diarrhea Priority: Secondary Status: Resolved (8) Metabolic acidosis Priority: Secondary Status: Acute Prognosis: Good Aware of Diagnosis: Patient Aware of Prognosis: Patient - Transfer Medications Home Medications: Aspirin [Lo-Dose Aspirin EC] 81 mg PO DAILY 08/24/17 [History] Carvedilol [Coreg] 25 mg PO BID 08/24/17 [History] Ezetimibe [Zetia] 10 mg PO DAILY 08/24/17 [History] Lisinopril [Zestril] 5 mg PO DAILY 08/24/17 [History] SitaGLIPtin [Januvia] 100 mg PO DAILY 08/24/17 [History] Spironolactone [Aldactone] 25 mg PO DAILY 08/24/17 [History] Cyanocobalamin/Cobamamide [B-12 5,000 Mcg Sublingual Tab] 1 each SL DAILY #90 tab.subl 08/27/17 [Rx] Ergocalciferol (VITAMIN D2) [Drisdol (50,000 Unit)] 50,000 unit PO QWEEK #15 capsule 08/27/17 [Rx] Ferrous Sulfate 325 mg PO DAILY #90 tablet 08/27/17 [Rx] Thiamine (B-1) [Vitamin B-1] 200 mg PO DAILY #180 tablet 08/27/17 [Rx] Atorvastatin [Lipitor] 40 mg PO HS 12/26/17 [History] Furosemide [Lasix] 20 mg PO DAILY 12/26/17 [History] Insulin Glargine,Hum.rec.anlog [Basaglar Kwikpen U-100] 10 unit SQ QAM 12/26/17 [History] Insulin Glargine,Hum.rec.anlog [Basaglar Kwikpen U-100] 15 unit SQ HS 12/26/17 [History] Insulin Regular, Human [Novolin R] 5 unit SQ TID 12/26/17 [History] Metformin HCl 2,000 mg PO QPM 12/26/17 [History] Acetaminophen [Tylenol] 325 mg PO Q6HR PRN 01/11/18 [History] Loperamide HCl [Imodium A-D] 2 mg PO ONCE PRN MDD 4 DOSES/24 HOURS 01/11/18 [History] Melatonin [Melatin] 3 mg PO HS PRN 01/11/18 [History] Allergies/Adverse Reactions: Allergy/AdvReac Type Severity Reaction Status Date / Time No Known Allergies Allergy Verified 01/11/18 16:38 - Respiratory Orders None Smoking Cessation: Smoking cessation has been advised. For more information, call the [place] Tobacco Quit Line at 2-167-KPDT-NOW. - Advance Directives Code Status: Full Code - Mobility Orders Chair - Rehabiliation Orders Rehab Potential: Fair - Diet Orders Regular CERTIFICATION: I certify that the transfer of the above named patient to an Extended Care Facility is necessary for the continuing treatment of the diagnosis listed. The above information is true and accurate reflection of patient's current condition. Confidential - Redisclosure prohibited without a patient's written consent.
--- NOTE | 2018-01-13 09:42 | Discharge Summary ---
- NOTES TO OUTPATIENT PROVIDER Notes to Outpatient Provider: Get a BMP within a week of hospital discharge Orders not resulted at time of discharge: Pending orders 01/11/18 14:48 EKG [ECG 12 lead ECG] [ECG] Stat 01/12/18 12:36 Fecal Hemoccult [Occult Blood,Stool] [BF] Stat Date of Encounter: 01/13/18 Time of Encounter: 09:38 - Discharge Diagnosis (1) Hyperkalemia Priority: Primary Status: Resolved (2) DMII (diabetes mellitus, type 2) Priority: Secondary Status: Chronic Qualifiers: Diabetes mellitus halfway insulin use: with watcher automat long goods use Chronic kidney disease stage: stage 3 (moderate) Qualified Code(s): E11.22 - Type 2 diabetes mellitus with diabetic chronic kidney disease; N18.3 - Chronic kidney disease, stage 3 (moderate); Z79.4 - senior care (current) use of insulin (3) HTN (hypertension) Priority: Secondary Status: Chronic Qualifiers: Hypertension type: essential hypertension Qualified Code(s): I10 - Essential (primary) hypertension (4) Iron deficiency anemia Priority: Secondary Status: Chronic Qualifiers: Iron deficiency anemia type: unspecified iron deficiency Qualified Code(s): D50.9 - Iron deficiency anemia, unspecified (5) Vitamin B12 deficiency Priority: Secondary Status: Chronic (6) Hyponatremia Priority: Secondary Status: Resolved (7) Diarrhea Priority: Secondary Status: Resolved Qualifiers: Diarrhea type: unspecified type Qualified Code(s): R19.7 - Diarrhea, unspecified (8) Metabolic acidosis Priority: Secondary Status: Resolved Hospital course: Ms. Johnson is a 82 year old female past medical history of hypertension, diabetes. She presents from [facility] due to concern for hyperkalemia. Patient admitted for hyperkalemia. electrolyte abnormality corrected. Diarrhea resolved. Patient was on Neutra/Phosp 1 tab?PO a day which has been discontinued. Patient is hemodynamically stable to be discharged. Recommended to follow up with her PCP within a week to have a BMP drawn. - Time Spent with Patient Total time spent providing and/or coordinating discharge services: Greater than 30 minutes (35) - Discharge Medications Home Medications: Aspirin [Lo-Dose Aspirin EC] 81 mg PO DAILY 08/24/17 [History] Carvedilol [Coreg] 25 mg PO BID 08/24/17 [History] Ezetimibe [Zetia] 10 mg PO DAILY 08/24/17 [History] Lisinopril [Zestril] 5 mg PO DAILY 08/24/17 [History] SitaGLIPtin [Januvia] 100 mg PO DAILY 08/24/17 [History] Spironolactone [Aldactone] 25 mg PO DAILY 08/24/17 [History] Cyanocobalamin/Cobamamide [B-12 5,000 Mcg Sublingual Tab] 1 each SL DAILY #90 tab.subl 08/27/17 [Rx] Ergocalciferol (VITAMIN D2) [Drisdol (50,000 Unit)] 50,000 unit PO QWEEK #15 capsule 08/27/17 [Rx] Ferrous Sulfate 325 mg PO DAILY #90 tablet 08/27/17 [Rx] Thiamine (B-1) [Vitamin B-1] 200 mg PO DAILY #180 tablet 08/27/17 [Rx] Atorvastatin [Lipitor] 40 mg PO HS 12/26/17 [History] Furosemide [Lasix] 20 mg PO DAILY 12/26/17 [History] Insulin Glargine,Hum.rec.anlog [Basaglar Kwikpen U-100] 10 unit SQ QAM 12/26/17 [History] Insulin Glargine,Hum.rec.anlog [Basaglar Kwikpen U-100] 15 unit SQ HS 12/26/17 [History] Insulin Regular, Human [Novolin R] 5 unit SQ TID 12/26/17 [History] Metformin HCl 2,000 mg PO QPM 12/26/17 [History] Acetaminophen [Tylenol] 325 mg PO Q6HR PRN 01/11/18 [History] Loperamide HCl [Imodium A-D] 2 mg PO ONCE PRN MDD 4 DOSES/24 HOURS 01/11/18 [History] Melatonin [Melatin] 3 mg PO HS PRN 01/11/18 [History] Allergies/Adverse Reactions: Allergy/AdvReac Type Severity Reaction Status Date / Time No Known Allergies Allergy Verified 01/11/18 16:38 Date of admission: 01/11/18 19:15 Primary care physician: PCP NONE Consults: 01/11/18 20:24 Consult to Pastoral Services [CONS] Routine Comment: Consult to Horticulture Instructor [CONS] Routine Reason for SW Consult: patient from signature will need F/U on discharge - Constitutional Vitals: Temp Pulse Resp BP Pulse Ox 99.3 F 72 16 162/81 96 01/13/18 04:41 01/13/18 07:03 01/13/18 07:03 01/13/18 07:03 01/13/18 07:03 General appearance: Present: cooperative, A&O X 3, answers questions appropriately Exam: General: Alert and oriented x2. In no distress. Skin: Normal color, no lesions. HEENT: EOM, pupils equal, round and reactive. Cardiovascular: RRR, Normal S1 & S2, no rubs, murmurs or gallops. Lungs: Normal breath sounds, no wheezes or crackles. Abdomen: Obese, Soft, non-tender, no rigidity. NABS in all 4 quadrants. Extremities: No deformity, no edema or tenderness, no joint swelling or clubbing. Neurological: CN II-XII intact Rest of the physical exam is non contributory - Patient Status Disposition: Transfer LTC Condition: Good Functional capacity at discharge: uses cane/walker Overall status at discharge: patient is back to baseline - Discharge Instructions Follow Up With: NONE,PCP [Primary Care Provider] - - Diet and Activity Activity: resume usual activities as tolerated Diet: diabetic diet, low salt diet
--- NOTE | 2018-01-14 15:34 | Electrocardiograph Report ---
[address] [place] [address] Test Date: 2018-01-11 Pat Name: Nancy Johnson Department: [id number] Room: 2NE23 Gender: F Assistant At Surgery: : 1935 Requested By: Tasha See Order Number: [id number] Reading MD: Ml Maddox Measurements Intervals [place] Rate: 66 P: 67 DC: 304 QRS: -14 QRSD: 164 T: 109 QT: 507 QTc: 532 Interpretive Statements Sinus rhythm Prolonged DC interval Left bundle branch block Electronically Signed On 01-14-2018 15:32:31 EST by Ml Maddox
== END 2018-01-13 14:21 | DRG 641 ==
LOC: EMEROOARM 14:39 → 2NENU 14:39 → OBSVTOIN 19:15 → SUATTDRO 19:15 → 2NENU 19:54
PROVIDERS: ADMIT Internal Medicine; ATTEND Internal Medicine

== ENCOUNTER 2018-06-10 19:40 | Observation (INO) ==
--- NOTE | 2018-06-10 20:07 | Emergency Department Note ---
Disposition Clinical Impression: Hyperkalemia, Elevated serum creatinine Disposition: Admitted As Inpatient Condition: Fair Referrals: NONE,PCP [Primary Care Provider] - Forms: ED Satisfaction Letter, Work/School Release Time of Disposition: 21:22 Recheck wound or abnormal lab - General Chief Complaint: ED General Medical Stated Complaint: abnormal labs Time Seen by Provider: 06/10/18 19:43 Source: patient, EMS Mode of arrival: EMS Limitations: no limitations Nursing Notes Reviewed: Yes Vital Signs Reviewed: Yes - History of Present Illness HPI Narrative: 83-year-old female presents from nursing facility due to hyperkalemia. Labs are drawn earlier today. Patient reports they were just for routine screening labs. She has no symptoms at this time. Denies any chest pain or shortness of breath. No palpitations. No weakness. She has been admitted previously and treated for hyperkalemia. She has chronic kidney disease but has never required dialysis. No new medications. No other complaints. Pt Subjective Complaint: abnormal lab(s) Initial Visit (ago): hour(s) Symptoms Since Prior Visit: no new symptoms Context: called for abnormal lab result Associated symptoms: none - Related Data Home Medications Medication Instructions Recorded Confirmed Aspirin [Lo-Dose Aspirin EC] 81 mg PO DAILY 08/24/17 01/16/18 Carvedilol [Coreg] 25 mg PO BID 08/24/17 01/16/18 Ezetimibe [Zetia] 10 mg PO DAILY 08/24/17 01/16/18 Lisinopril [Zestril] 5 mg PO DAILY 08/24/17 01/16/18 SitaGLIPtin [Januvia] 100 mg PO DAILY 08/24/17 01/16/18 Spironolactone [Aldactone] 25 mg PO DAILY 08/24/17 01/16/18 Atorvastatin [Lipitor] 40 mg PO HS 12/26/17 01/16/18 Furosemide [Lasix] 20 mg PO DAILY 12/26/17 01/16/18 Insulin Glargine,Hum.rec.anlog 10 unit SQ QAM 12/26/17 01/16/18 [Basaglar Kwikpen U-100] Insulin Glargine,Hum.rec.anlog 15 unit SQ HS 12/26/17 01/16/18 [Basaglar Kwikpen U-100] Insulin Regular, Human [Novolin R] 5 unit SQ TID 12/26/17 01/16/18 Metformin HCl 2,000 mg PO QPM 12/26/17 01/16/18 Acetaminophen [Tylenol] 325 mg PO Q6HR PRN 01/11/18 01/16/18 Loperamide HCl [Imodium A-D] 2 mg PO ONCE PRN MDD 4 DOSES/24 01/11/18 01/16/18 HOURS Melatonin [Melatin] 3 mg PO HS PRN 01/11/18 01/16/18 Sennosides/Docusate Sodium 1 each PO DAILY 01/16/18 01/16/18 [Senna-S Tablet] Previous Rx's Medication Instructions Recorded Cyanocobalamin/Cobamamide [B-12 1 each SL DAILY #90 tab.subl 08/27/17 5,000 Mcg Sublingual Tab] Ergocalciferol (VITAMIN D2) 50,000 unit PO QWEEK #15 capsule 08/27/17 [Drisdol (50,000 Unit)] Ferrous Sulfate 325 mg PO DAILY #90 tablet 08/27/17 Thiamine (B-1) [Vitamin B-1] 200 mg PO DAILY #180 tablet 08/27/17 Allergies Allergy/AdvReac Type Severity Reaction Status Date / Time No Known Allergies Allergy Verified 01/16/18 14:04 All systems ED: reviewed and negative except as stated. Cardiovascular: Denies: chest pain, palpitations Respiratory: Denies: dyspnea Gastrointestinal: Denies: abdominal pain, nausea, vomiting Neurological: Denies: weakness, numbness, paresthesias Past Medical History - Past Medical History Attestation: Yes The following information was validated with the patient. Source: patient Medical history: Reports: CHF, diabetes Surgical history: Reports: cholecystectomy, hysterectomy Psychiatric history: Reports: no psych history - Social History Smoking Status: Never smoker Smokeless Tobacco Status: No Alcohol use: Reports: none Drug use: Reports: none Physical Exam - General Limitations: no limitations General appearance: alert, in no apparent distress - Head Head exam: atraumatic, normocephalic, normal inspection - Eye Eye exam: Present: normal appearance - ENT ENT exam: normal exam - Neck Neck exam: Present: normal inspection - Chest Chest inspection: Present: normal inspection, symmetric chest wall rise - Respiratory Respiratory exam: Present: normal lung sounds bilaterally - Cardiovascular Cardiovascular exam: Present: regular rate, normal rhythm, normal heart sounds - Abdominal Exam Abdominal exam: Present: soft, Non-Tender. Absent: tenderness, distention, rigidity - Extremities Exam Extremities exam: Present: normal inspection, full ROM - Expanded Upper Extremity Exam Shoulder exam: Present: normal inspection, full ROM Arm exam: Present: normal inspection, full ROM Elbow exam: Present: normal inspection, full ROM Forearm/Wrist exam: Present: normal inspection, full ROM Hand exam: Present: normal inspection, full ROM - Expanded Lower Extremity Exam Hip/Pelvis exam: Present: normal inspection, full ROM Upper leg exam: Present: normal inspection, full ROM Knee exam: Present: normal inspection, full ROM Lower leg exam: Present: normal inspection, full ROM Ankle exam: Present: normal inspection, full ROM Foot/toe exam: Present: normal inspection, full ROM Neurovascular/Tendon exam: Absent: motor deficit, sensory deficit - Neurological Exam Neurological exam: Present: alert, other (GCS 15. No focal deficits.) - Skin Skin exam: Present: warm, dry Course Course Narrative: Patient seen and examined. Vital signs reviewed. Reviewed labs drawn at 09:50 this morning showing a potassium of 6.6 with stable chronic kidney disease. Plan to recheck, EKG. Vitals are stable at this point. - Reevaluation(s) Reevaluation #1: Discussed labs with the patient. She is agreeable with the plan. Kayexalate, insulin and dextrose ordered. - Consultations Consultation #1: I spoke with the on-call blending machine operator Dr. Ferrer. Discussed patient's history as well as current medications and concerns due to her hyperkalemia. They will see the patient in consultation. We will start Kayexalate, insulin and D50. Vital Signs Temperature 98.0 F 06/10/18 19:41 Pulse Rate 68 06/10/18 19:41 Respiratory Rate 16 06/10/18 19:41 Blood Pressure 129/63 06/10/18 19:41 O2 Sat by Pulse Oximetry 99 06/10/18 19:41 Temperature 98.0 F 06/10/18 19:41 Pulse Rate 70 06/10/18 20:55 Respiratory Rate 16 06/10/18 20:55 Blood Pressure 112/49 06/10/18 20:55 O2 Sat by Pulse Oximetry 98 06/10/18 20:55 Oxygen Delivery Oxygen Delivery Room Air Recheck wound or abnormal lab - MDM Narrative Medical decision making narrative: 83-year-old female presenting due to abnormal labs. She was noted to have hyperkalemia with a potassium of 6.6 earlier today. This appears to be a recurring issue for the patient. She remains on potassium sparing diuretics. Case was discussed with nephrology who will see the patient in consultation for medication adjustment. Patient given insulin, D50 and Kayexalate as well as normal saline. No EKG changes. She is admitted to the hospitalist service for further management. - Medical Records Medical records reviewed: Yes I reviewed the patient's medical records. - Lab Data Lab results reviewed: Yes I reviewed the patient's lab results. Result diagrams: 06/10/18 19:59 06/10/18 19:59 Lab Results 06/10/18 06/10/18 Range/Units 19:59 19:59 WBC 4.8 (4.3-11.1) K/mcL RBC 2.81 L (3.82-4.97) M/mcL Hgb 9.3 L (11.5-15.4) g/dL Hct 28.0 L (35.3-44.9) % MCV 99.6 (83.0-100.0) fL MCH 33.1 (28.0-33.3) pg MCHC 33.2 (31.6-35.5) g/dL RDW 12.4 (11.5-14.5) % Plt Count 160 (140-400) K/mcL MPV 10.2 (9.4-12.4) fL Immature Gran % 0.4 (0-4) % Seg Neutrophils % 66.2 % Lymphocytes % 21.9 % Monocytes % 9.2 % Eosinophils % 1.3 % Basophils % 1.0 % Neutrophils # 3.2 (1.6-8.9) K/mcL Lymphocytes # 1.1 (0.6-4.6) K/mcL Monocytes # 0.4 (0.0-1.3) K/mcL Eosinophils # 0.1 (0.0-0.6) K/mcL Basophils # 0.1 (0.0-0.2) K/mcL Sodium 131 L (136-145) mEq/L Potassium 5.7 H (3.5-5.1) mEq/L Chloride 102 (98-107) mEq/L Carbon Dioxide 22 L (23-29) mEq/L BUN 34 H (8-23) mg/dL Creatinine 1.37 H (0.60-1.20) mg/dL Est GFR ( Amer) 45 L (> 60) Est GFR (Non-Af Amer) 37 L (> 60) BUN/Creatinine Ratio 25 (6-26) Glucose 180 H (70-105) mg/dL Calculated Osmolality 284 (280-300) Calcium 9.4 (8.6-10.3) mg/dL Phosphorus 4.2 (2.7-4.5) mg/dL Magnesium 1.6 (1.6-2.6) mg/dL - EKG Data EKG attestation: Yes I reviewed and interpreted this EKG. EKG results narrative: EKG demonstrates sinus rhythm with left bundle branch block with rate of 69 bpm. Prolonged ME interval of 313. Prolonged QRS duration of 166. Prolonged QTC of 523. No gross ST elevations or depressions. No acute ischemic findings. No significant changes from previous EKG dated 01/11/18. Attestation Statement - Attestation Attestation: I have seen this patient with the resident physician, I have personally evalu ated this patient. I had reviewed the chart and document dictation by the resident physician and M in agreement with the information documented by the resident physician. Please see documentation by the resident physician for complete chart including past medical history, family medical history, review of systems, current history and physical and laboratory and imaging studies. Patient presented to the emergency department without receiving complaint she was sent in for further evaluation of outpatient laboratory studies showing a potassium of 6.6 she has had prior hospitalization secondary to hyperkalemia of unclear etiology she does have some intermittent mild acute renal disease, her creatinine is outpatient day of 1.4 slightly increased from baseline of 1.1 low she has been as high as 1.7 in the past. 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 Basic laboratory studies revealed a creatinine of 1.37 with a potassium of 5.7 without evidence to suggest hemolysis. With borderline potassium, we contacted nephrology to discuss further management, the patient does not currently have a blending machine operator she is on medications that could be affecting her potassium including spironolactone, and it is unclear as to why the patient is still on spironolactone when she was admitted 4 months ago for hyperkalemia. Without nephrology follow-up, nephrology states that it would be reasonable to admit this patient overnight to the hospital, give the patient Kayexalate, insulin and dextrose, monitor potass ium overnight, and she can provide consultation and recommendations regards to potential medication adjustments as an inpatient. Hospitalist service was contacted and he will admit this patient.
[2018-06-10 20:29] LABS: Basophils # 0.1 K/mcL (0.0-0.2); Eosinophils # 0.1 K/mcL (0.0-0.6); Eosinophils % 1.3 %; Hemoglobin 9.3 g/dL (11.5-15.4); Immature Granulocytes % 0.4 % (0-4); Lymphocytes # 1.1 K/mcL (0.6-4.6); Lymphocytes % 21.9 %; Mean Corpuscular HGB Conc 33.2 g/dL (31.6-35.5); Mean Corpuscular Hemoglobin 33.1 pg (28.0-33.3); Mean Corpuscular Volume 99.6 fL (83.0-100.0); Mean Platelet Volume 10.2 fL (9.4-12.4); Monocytes # 0.4 K/mcL (0.0-1.3); Monocytes % 9.2 %; Neutrophils # 3.2 K/mcL (1.6-8.9); Platelet Count 160 K/mcL (140-400); Red Blood Count 2.81 M/mcL (3.82-4.97); Red Cell Distribution Width 12.4 % (11.5-14.5); Segmented Neutrophils % 66.2 %
[2018-06-10 20:45] LABS: Calcium 9.4 mg/dL (8.6-10.3); Magnesium 1.6 mg/dL (1.6-2.6); Phosphorous 4.2 mg/dL (2.7-4.5); Potassium 5.7 mEq/L (3.5-5.1)
[2018-06-10] MEDS ORDERED: *HR* Dextrose 50 % in Water (Syg) 50 ML SYRINGE IVP ONE (20:57)
[2018-06-10] MEDS ORDERED: Insulin Human Regular 10 UNIT in 0.9 % Sodium Chloride 10 ML IV ONE (20:57)
[2018-06-10] MEDS ORDERED: 0.9 % Sodium Chloride 500 ML IVC ONE (21:08)
[2018-06-10] MEDS ORDERED: Naloxone 0.4 MG/ML INJ IVP PRN (21:51)
[2018-06-10] MEDS ORDERED: *HR* Dextrose 50 % in Water (Syg) 50 ML SYRINGE IVP PRN (21:56)
[2018-06-10] MEDS ORDERED: D5% in Water 1,000 ML IVC PRN (21:56)
[2018-06-10] MEDS ORDERED: Dextrose Gel 15 GM/37.5 ML TUBE PO PRN ×2 (21:56)
[2018-06-10] MEDS: Melatonin 3 MG TABLET PO PRN (23:09)
[2018-06-10] MEDS: Cholecalciferol (D-3) 1,000 UNIT TABLET PO SCH (23:12)
[2018-06-10] MEDS: Insulin LISPRO 300 UNITS/3 ML VIAL SQ SCH (23:12)
--- NOTE | 2018-06-11 00:30 | Internal Med History&Physical ---
Date of Encounter: 06/11/18 Time of Encounter: 00:30 Internal Medicine - H&P: HPI Chief complaint: Hyperkalemia History of present illness: Ms. Johnson is a 83 year old female with a past medical history of hypertension, CHF, hyperlipidemia and diabetes who presents from nursing facility due to hyperkalemia. Labs are drawn earlier today as part of routine screening labs per patient. Potassium reportedly was 6.6 She has no symptoms at this time. Denies any chest pain or shortness of breath. No palpitations. No weakness. She has been admitted previously and treated for hyperkalemia. She has chronic kidney disease but has never required dialysis. No new medications. No other complaints. Patient currently takes spironolactone. Repeat labs revealed a creatinine of 1.37 potassium of 5.7 after arrival. ED staff contacted nephrology to discuss the case further as the patient reportedly does not have a temperature regulator and it was unclear as to why she was still on spironolactone, when she was admitted for months ago for hyperkalemia as well. Patient was given Kayexalate, insulin and dextrose in the ED. Past Med Surg Social Fam HX - Past Medical History Medical history: CHF, diabetes, renal disease Additional medical history: Type 2 Diabetic Psychiatric history: no psych history - Past Surgical History Surgical History: cholecystectomy, hysterectomy Additional surgical history: gastric ulcers, shoulder surgery, had defibilator but was removed5 years ago - Social History Smoking Status: Never smoker Smokeless Tobacco Status: No Alcohol use: none Drug use: none Internal Medicine - H&P: Meds Aspirin [Lo-Dose Aspirin EC] 81 mg PO DAILY 08/24/17 [History] Carvedilol [Coreg] 25 mg PO BID 08/24/17 [History] Ezetimibe [Zetia] 10 mg PO DAILY 08/24/17 [History] Lisinopril [Zestril] 5 mg PO DAILY 08/24/17 [History] SitaGLIPtin [Januvia] 100 mg PO DAILY 08/24/17 [History] Spironolactone [Aldactone] 25 mg PO DAILY 08/24/17 [History] Ergocalciferol (VITAMIN D2) [Drisdol (50,000 Unit)] 50,000 unit PO QWEEK #15 cap manuel 08/27/17 [Rx] Ferrous Sulfate 325 mg PO DAILY #90 tablet 08/27/17 [Rx] Thiamine (B-1) [Vitamin B-1] 200 mg PO DAILY #180 tablet 08/27/17 [Rx] Atorvastatin [Lipitor] 40 mg PO HS 12/26/17 [History] Furosemide [Lasix] 20 mg PO DAILY 12/26/17 [History] Insulin Glargine,Hum.rec.anlog [Basaglar Kwikpen U-100] 10 unit SQ QAM 12/26/17 [History] Insulin Glargine,Hum.rec.anlog [Basaglar Kwikpen U-100] 15 unit SQ HS 12/26/17 [History] Insulin Regular, Human [Novolin R] 5 unit SQ TID 12/26/17 [History] Metformin HCl 2,000 mg PO QPM 12/26/17 [History] Acetaminophen [Tylenol] 325 mg PO Q6HR PRN 01/11/18 [History] Loperamide HCl [Imodium A-D] 2 mg PO ONCE PRN MDD 4 DOSES/24 HOURS 01/11/18 [History] Melatonin [Melatin] 10 mg PO HS PRN 01/11/18 [History] Sennosides/Docusate Sodium [Senna-S Tablet] 1 each PO DAILY 01/16/18 [History] Cyanocobalamin/Cobamamide [B-12 5,000 Mcg Sublingual Tab] 1 mg SL DAILY 06/10/18 [History] Robitussin 5 ml PO PRN PRN 06/10/18 [History] Allergy/AdvReac Type Severity Reaction Status Date / Time No Known Allergies Allergy Verified 01/16/18 14:04 All Systems PM: A 10-system review of systems was performed and is negative for pertinent findings except as documented above in the HPI. - Constitutional Constitutional: no chills, no fever(s), no night sweats - EENT Eyes: no change in vision, no discharge, no pain, no photophobia Ears: no ear discharge, no ear pain, no tinnitus Nose, mouth and throat: no dysphagia, no nasal discharge, no neck pain, no sore throat - Cardiovascular Cardiovascular ROS IM: no chest pain, no diaphoresis, no dyspnea, no lightheadedness, no palpitations, no syncope - Respiratory Respiratory: no cough, no dyspnea, no wheezing, no excessive phlegm production - Gastrointestinal Gastrointestinal: no abdominal pain, no diarrhea, no hematemesis, no hematochezia, no melena, no nausea, no vomiting - Genitourinary Genitourinary: no change in urinary stream, no dysuria, no flank pain, no des turia - Musculoskeletal Musculoskeletal ROS IM: no numbness, no tingling - Integumentary Integumentary IM: no rash, no unusual bruising - Neurological Neurological ROS: no confusion, no convulsions, no focal weakness, no numbness, no tingling, no tremor(s) - Hematologic/Lymphatic Hematologic/Lymphatic: no easy bruising - Constitutional Vitals: Temp Pulse Resp BP Pulse Ox 97.7 F 74 20 108/65 97 06/10/18 23:04 06/10/18 23:04 06/10/18 23:04 06/10/18 23:04 06/10/18 23:04 Exam: General: Alert and oriented Skin:Normal color, no rash, no lesions. HEENT:EOM, pupils equal, round and reactive. Cardiovascular:Normal S1 & S2, no rubs, murmurs or gallops. No JVD. Pulse regular. Lungs:Normal breath sounds, no wheezes or crackles. Abdomen:Soft, non-tender, no rigidity. Extremities:No deformity, no edema or tenderness, no joint swelling or clubbing. Neurological:Normal cognition and motor skills. Pulses:Carotid and radial pulses normal +2. Rest of the physical exam is non contributory Internal Med - H&P Results - Labs CBC & Chem 7: 06/11/18 04:43 06/11/18 04:43 Labs: Short CBC 06/10/18 Range/Units 19:59 WBC 4.8 (4.3-11.1) K/mcL Hgb 9.3 L (11.5-15.4) g/dL Hct 28.0 L (35.3-44.9) % Plt Count 160 (140-400) K/mcL Neutrophils # 3.2 (1.6-8.9) K/mcL BMP 06/10/18 19:59 Sodium 131 L Potassium 5.7 H Chloride 102 Carbon Dioxide 22 L BUN 34 H Creatinine 1.37 H Glucose 180 H Calcium 9.4 - Assessment and Plan (1) Elevated serum creatinine Current Visit: Yes Status: Acute (2) Acute kidney injury Current Visit: Yes Status: Acute Assessment and plan: Patient's creatinine on arrival was 1.41. Repeat after fluid bolus 1.37. Baseline appears to be around 1.1. Likely prerenal in the setting of otilia inhibitor, spironolactone use and Lasix -Hold spironolactone given patient's hyperkalemia; Monitor for now. (3) Hyperkalemia Current Visit: Yes Status: Acute Assessment and plan: Patient had a potassium of 6.6 reportedly obtained as outpatient. Repeat potassium on arrival 75.7. Noted to have mild MAGGIE. No EKG changes were appreciated. Patient denies any chest pain. Patient received dextrose plus insulin as well as Kayexalate per nephrology recommendations. -Telemetry -Monitor potassium -Hold spironolactone -nephrology to follow (4) DMII (diabetes mellitus, type 2) Current Visit: No Status: Chronic Assessment and plan: Blood glucose checks. Diabetic diet. Sliding scale insulin. Qualifiers: Diabetes mellitus penitentiary insulin use: with intermediate card tender use Chronic kidney disease stage: stage 3 (moderate) Qualified Code(s): E11.22 - Type 2 diabetes mellitus with diabetic chronic kidney disease; N18.3 - Chronic kidney disease, stage 3 (moderate); Z79.4 - intermediate card tender (current) use of insulin (5) HTN (hypertension) Current Visit: No Status: Chronic Assessment and plan: BP stable. Resume antihypertensives. Qualifiers: Hypertension type: essential hypertension Qualified Code(s): I10 - Essential (primary) hypertension (6) DVT prophylaxis Current Visit: No Status: Acute Assessment and plan: Subcutaneous heparin - Time Spent With Patient Total time spent is greater than 50% in coordination of care (as documented) at patient's floor/unit and/or counseling patient:
[2018-06-11 05:23] LABS: Hematocrit 26.6 % (35.3-44.9); Hemoglobin 8.8 g/dL (11.5-15.4); Mean Corpuscular HGB Conc 33.1 g/dL (31.6-35.5); Mean Corpuscular Volume 99.6 fL (83.0-100.0); Mean Platelet Volume 10.3 fL (9.4-12.4); Platelet Count 154 K/mcL (140-400); Red Blood Count 2.67 M/mcL (3.82-4.97); Red Cell Distribution Width 12.5 % (11.5-14.5)
[2018-06-11 05:28] LABS: Calcium 8.7 mg/dL (8.6-10.3)
[2018-06-11] MEDS ORDERED: Furosemide 20 MG TABLET PO SCH (09:00)
[2018-06-11] MEDS ORDERED: (Ezetimibe [Zetia] 10 MG) PO SCH (09:00)
[2018-06-11] MEDS: Insulin LISPRO 300 UNITS/3 ML VIAL SQ SCH ×3 (09:04→17:22)
[2018-06-11] MEDS: Cholecalciferol (D-3) 1,000 UNIT TABLET PO SCH ×2 (09:11→09:17)
[2018-06-11] MEDS: Cyanocobalamin (B-12) 1,000 MCG TABLET PO SCH (09:17)
[2018-06-11] MEDS: Aspirin Enteric Coated 81 MG Tablet PO SCH (09:17)
[2018-06-11] MEDS: Thiamine (B-1) 100 MG TABLET PO SCH (09:17)
[2018-06-11] MEDS: Sennosides/Docusate Sodium TABLET PO SCH (09:17)
[2018-06-11] MEDS ORDERED: Acetaminophen 325 MG TABLET PO PRN (11:10)
--- NOTE | 2018-06-11 16:47 | Nephrology Consult Note ---
Date of Encounter: 06/11/18 Time of Encounter: 12:00 Assessment and Plan (1) Hyperkalemia Current Visit: No Status: Resolved Hyperkalemia in the setting of ACEi, aldactone and CKD Agree with stopping aldactone entirely Renal diet advised Will check urine lytes Educated patient on low potassium diet (2) MAGGIE (acute kidney injury) Current Visit: No Status: Resolved SCr improved to 1.18, GFR 44 from fluids, now at baseline No further workup necessary Avoid nephrotoxins if possible (3) CKD (chronic kidney disease) stage 3, GFR 30-59 ml/min Current Visit: Yes Status: Acute Baseline GFr in the 40-50s, will initiate CKD workup Check urine for proteinuria Check PTH and vitamin D Check SPEP and UPEP Check US of kidney History of Present Illness - Reason for Consult Consult date: 06/11/18 Acute Kidney Injury, hyperkalemia Requesting physician: Chris Fletcher - History of Present Illness 83 y o female with PMH of DM, HTN, CHF and recurrent hyperkalemia admitted after presening to the ED with abnormal labs; potassium of 6.6. Of note, pt has had bouts of hyperkalemia with the worse at 7.7 as of january. SCr also noted elevated on presentation at 1.41, GFR 37. Pt is a rather poor historian; she denies any history of renal disease but GFR noted at baseline in the 40-50s. She also could not recall who her pcp was and why she was still taking aldactone. She also did not know what foods are high in potassium either. She received kayexalate in the ED with potassium improving from 5.7 to 5.0 this am. She was noted on lisinopril and lasix as well from home. Past Med Surg Social Fam HX - Past Medical History Medical history: CHF, diabetes, renal disease Additional medical history: Type 2 Diabetic Psychiatric history: no psych history - Past Surgical History Surgical History: cholecystectomy, hysterectomy Additional surgical history: gastric ulcers, shoulder surgery, had defibilator but was removed5 years ago - Social History Smoking Status: Never smoker Smokeless Tobacco Status: No Alcohol use: none Drug use: none Medications and Allergies Aspirin [Lo-Dose Aspirin EC] 81 mg PO DAILY 08/24/17 [History] Carvedilol [Coreg] 25 mg PO BID 08/24/17 [History] Ezetimibe [Zetia] 10 mg PO DAILY 08/24/17 [History] Lisinopril [Zestril] 5 mg PO DAILY 08/24/17 [History] SitaGLIPtin [Januvia] 100 mg PO DAILY 08/24/17 [History] Spironolactone [Aldactone] 25 mg PO DAILY 08/24/17 [History] Ergocalciferol (VITAMIN D2) [Drisdol (50,000 Unit)] 50,000 unit PO QWEEK #15 capsule 08/27/17 [Rx] Ferrous Sulfate 325 mg PO DAILY #90 tablet 08/27/17 [Rx] Thiamine (B-1) [Vitamin B-1] 200 mg PO DAILY #180 tablet 08/27/17 [Rx] Atorvastatin [Lipitor] 40 mg PO HS 12/26/17 [History] Furosemide [Lasix] 20 mg PO DAILY 12/26/17 [History] Insulin Glargine,Hum.rec.anlog [Basaglar Kwikpen U-100] 10 unit SQ QAM 12/26/17 [History] Insulin Glargine,Hum.rec.anlog [Basaglar Kwikpen U-100] 15 unit SQ HS 12/26/17 [History] Insulin Regular, Human [Novolin R] 5 unit SQ TID 12/26/17 [History] Metformin HCl 2,000 mg PO QPM 12/26/17 [History] Acetaminophen [Tylenol] 325 mg PO Q6HR PRN 01/11/18 [History] Loperamide HCl [Imodium A-D] 2 mg PO ONCE PRN MDD 4 DOSES/24 HOURS 01/11/18 [Hi story] Melatonin [Melatin] 10 mg PO HS PRN 01/11/18 [History] Sennosides/Docusate Sodium [Senna-S Tablet] 1 each PO DAILY 01/16/18 [History] Cyanocobalamin/Cobamamide [B-12 5,000 Mcg Sublingual Tab] 1 mg SL DAILY 06/10/18 [History] Robitussin 5 ml PO PRN PRN 06/10/18 [History] Allergy/AdvReac Type Severity Reaction Status Date / Time No Known Allergies Allergy Verified 01/16/18 14:04 Review of Systems All Systems review (narrative): The rest of the systems are negative Constitutional: fatigue (denies) Cardiovascular: chest pain (denies), dyspnea, leg edema (denies) Respiratory: dyspnea (denies) Exam - Vital Signs Vital signs: Initial Vital Signs Temp Pulse Resp BP Pulse Ox 98.0 F 68 16 129/63 99 06/10/18 19:41 06/10/18 19:41 06/10/18 19:41 06/10/18 19:41 06/10/18 19:41 Vital Signs - Last 8 Hours Temp Pulse Resp BP Pulse Ox 06/11/18 12:02 98.0 F 61 18 83/46 98 Intake and Output 06/11/18 06/11/18 06/11/18 07:59 15:59 23:59 Intake Total 560 / 560 Output Total 0 / 0 Balance 560 / 560 Intake: Oral 560 / 560 Output: Urine 0 / 0 Other: Meal Lunch Percent of Meal Consumed 20% # Voids 1 # Bowel Movements 1 Blood Glucose* 111 138 - General Appearance General appearance: frail (NAD) EENT: ATNC, mucous membranes moist Neck: no JVD, supple Respiratory: clear Cardiology: no edema, normal S1, normal S2 Gastrointestinal: no tenderness, no guarding Integumentary: warm and dry Neurologic: no focal deficit Musculoskeletal: no deformities Psychiatric: mood/affect appropriate, cooperative Results - Lab Results 06/11/18 04:43 06/11/18 04:43 Most recent lab results Calcium 8.7 mg/dL (8.6-10.3) 06/11/18 04:43 Phosphorus 4.2 mg/dL (2.7-4.5) 06/10/18 19:59 Magnesium 1.6 mg/dL (1.6-2.6) 06/10/18 19:59 Consult Discharge Plan - Plan Referrals: NONE,PCP [Primary Care Provider] -
[2018-06-11 19:00] LABS: Bilirubin,Urine Negative (Negative); Blood,Urine Negative (Negative); Clarity,Urine Clear (Clear); Color,Urine Yellow (Yellow); Glucose,Urine (UA) Normal (Normal); Ketones,Urine Negative (Negative); Leukocyte Esterase,Urine Moderate (Negative); Nitrite,Urine Negative (Negative); Protein,Urine Negative (Neg-Trace); Specific Gravity,Urine 1.015 (1.010-1.025); Urobilinogen,Urine Normal (Normal)
[2018-06-11 19:02] LABS: Bacteria,Urine None Seen per hpf (None-Few); Hyaline Casts,Urine None Seen per lpf (None-Few); RBC,Urine 0-3 per hpf (0-3); Squamous Epithelial Cell,Urine Moderate per lpf (None-Few); WBC,Urine 15-30 per hpf (0-3)
[2018-06-11 19:19] LABS: Protein/Creatinine Ratio,Urine 0.21 mg/mg (0.00-0.20); Sodium, Urine 90.5 mEq/L
[2018-06-11] MEDS: Melatonin 3 MG TABLET PO PRN (20:42)
--- NOTE | 2018-06-11 23:52 | Internal Med Progress Note ---
Hospitalist Progress Note - Encounter Date of Encounter: 06/11/18 Time of Encounter: 19:00 - Subjective Interval History: SUBJECTIVE: The patient feels good. She was admitted to the hospital, after her blood tests showed hyperkalemia and acute kidney injury. Denies abdominal pain, nausea and vomiting. Denies urinary symptoms. Denies chest pain, coughing and wheezing. OBJECTIVE: Skin: Free of rash and discoloration. ENMT: Oral/pharyngeal mucosa is normal in appearance. Eyes: Sclera is white. There is no discharge from eyes. Respiratory: Normal breath sounds; no crackles or wheezes. CV: Heart is regular; no gallop or murmur. GI: Abdomen is soft and not tender. There is no palpable mass or visceromegaly. Neuro: There is no focal deficits. ADDITIONAL DATA: Hemoglobin is 8.8 with WBC of 5.4 thousand and platelet count of 154,000. BMP shows sodium of 133, potassium of 5.0 (5.7 yesterday) and creatinine of 1.18 (1.37 yesterday). ASSESSMENT AND PLAN: Acute kidney injury with hyperkalemia. Better. I will keep her Zestril and spironolactone on hold. She got IV fluids. See notes from nephrology. I will repeat her BMP and magnesium tomorrow. Chronic systolic heart failure. Ejection fraction of 25-30% in June 2017. I will put her on Coreg and low-dose Lasix in 1-2 days. Type 2 diabetes mellitus. I will keep her on diabetic diet and when necessary Humalog. Hypertension. She currently does not need any antihypertensives. I will probably put her on carvedilol at the time of discharge. DISPOSITION: Tentative discharge: Tomorrow. - Exam Vitals: Temp Pulse Resp BP Pulse Ox 98.2 F 68 16 96/52 97 06/11/18 23:09 06/11/18 23:09 06/11/18 23:09 06/11/18 23:09 06/11/18 23:09 Exam: xx - Assessment and Plan (1) Acute kidney injury Current Visit: Yes Status: Acute (2) Hyperkalemia Current Visit: Yes Status: Acute (3) Chronic systolic heart failure Current Visit: Yes Status: Chronic (4) DMII (diabetes mellitus, type 2) Current Visit: No Status: Chronic (5) HTN (hypertension) Current Visit: No Status: Chronic - Time Spent with Patient Total time spent is greater than 50% in coordination of care (as documented) at patient's floor/unit and/or counseling patient: 25 - 35 minutes Plan of Care Discussed with: patient Internal Medicine: Result - Labs CBC & Chem 7: 06/11/18 04:43 06/11/18 04:43 Labs: Short CBC 06/11/18 Range/Units 04:43 WBC 5.4 (4.3-11.1) K/mcL Hgb 8.8 L (11.5-15.4) g/dL Hct 26.6 L (35.3-44.9) % Plt Count 154 (140-400) K/mcL BMP 06/11/18 04:43 Sodium 133 L Potassium 5.0 Chloride 105 Carbon Dioxide 20 L BUN 30 H Creatinine 1.18 Glucose 100 Calcium 8.7 Urine 06/11/18 Range/Units 18:48 Urine Color Yellow (Yellow) Urine Clarity Clear (Clear) Urine pH 6.0 (5.0-8.0) pH Units Ur Specific Wilson 1.015 (1.010-1.025) Urine Protein Negative (Neg-Trace) mg/dL Urine Glucose (UA) Normal (Normal) mg/dL - Impressions Impressions Retroperitoneum Ultrasound 06/11/18 18:30 IMPRESSION: No evidence of obstructive uropathy. Cortical thinning noted bilaterally. Bladder appears grossly unremarkable in appearance. D/ / 06/11/2018 19:10:57 Nicola Washington MD / corinne Interpreting Provider: Nicola Washington MD Consult Discharge Plan - Plan Referrals: NONE,PCP [Primary Care Provider] - (4) DMII (diabetes mellitus, type 2) Qualifiers: Diabetes mellitus senior living insulin use: with local intermodal truck driver use Chronic kidney disease stage: stage 3 (moderate) Qualified Code(s): E11.22 - Type 2 diabetes mellitus with diabetic chronic kidney disease; N18.3 - Chronic kidney disease, stage 3 (moderate); Z79.4 - terminal clerk (current) use of insulin (5) HTN (hypertension) Qualifiers: Hypertension type: essential hypertension Qualified Code(s): I10 - Essential (primary) hypertension
[2018-06-12 06:20] LABS: Basophils % 0.8 %; Eosinophils # 0.1 K/mcL (0.0-0.6); Eosinophils % 1.9 %; Hemoglobin 8.7 g/dL (11.5-15.4); Immature Granulocytes % 0.6 % (0-4); Lymphocytes # 1.5 K/mcL (0.6-4.6); Lymphocytes % 28.4 %; Mean Corpuscular HGB Conc 33.5 g/dL (31.6-35.5); Mean Corpuscular Hemoglobin 32.8 pg (28.0-33.3); Mean Corpuscular Volume 98.1 fL (83.0-100.0); Mean Platelet Volume 10.8 fL (9.4-12.4); Monocytes # 0.5 K/mcL (0.0-1.3); Monocytes % 9.7 %; Neutrophils # 3.1 K/mcL (1.6-8.9); Platelet Count 152 K/mcL (140-400); Red Blood Count 2.65 M/mcL (3.82-4.97); Red Cell Distribution Width 12.5 % (11.5-14.5); Segmented Neutrophils % 58.6 %
[2018-06-12 06:26] LABS: BUN/Creatinine Ratio 27 (6-26); Blood Urea Nitrogen 27 mg/dL (8-23); Calcium 9.4 mg/dL (8.6-10.3); Carbon Dioxide 23 mEq/L (23-29); Chloride 102 mEq/L (98-107); Glucose 109 mg/dL (70-105); Magnesium 1.4 mg/dL (1.6-2.6); Osmolality,Calculated 280 (280-300); Potassium 4.6 mEq/L (3.5-5.1); Sodium 132 mEq/L (136-145); eGFR For Non-African Americans 53 (> 60)
[2018-06-12] MEDS ORDERED: *HR* FentaNYL (PF) 100 MCG/2 ML VIAL IVP PRN (06:41)
[2018-06-12] MEDS ORDERED: Ondansetron 4 MG/2 ML VIAL IVP PRN (06:41)
[2018-06-12] MEDS ORDERED: 0.9 % Sodium Chloride 1,000 ML IVC SCH (06:45)
[2018-06-12] MEDS: Insulin LISPRO 300 UNITS/3 ML VIAL SQ SCH ×2 (08:06→12:23)
--- NOTE | 2018-06-12 09:07 | Discharge Summary ---
- NOTES TO OUTPATIENT PROVIDER Notes to Outpatient Provider: Follow up with cardiology within a week of hospital discharge. Orders not resulted at time of discharge: Pending orders 06/11/18 18:40 Immunofixation,Urine (BJP) Routine 06/11/18 18:48 Culture,Urine [RM] Routine 06/12/18 04:47 Immunoelectrophoresis AM 0400 Date of Encounter: 06/12/18 Time of Encounter: 09:01 - Discharge Diagnosis (1) DMII (diabetes mellitus, type 2) Priority: Secondary Status: Chronic Qualifiers: Diabetes mellitus lobsterman insulin use: with long-term use Chronic kidney disease stage: stage 3 (moderate) Qualified Code(s): E11.22 - Type 2 diabetes mellitus with diabetic chronic kidney disease; N18.3 - Chronic kidney disease, stage 3 (moderate); Z79.4 - equipment operator intermodal yard (current) use of insulin (2) HTN (hypertension) Priority: Secondary Status: Chronic Qualifiers: Hypertension type: essential hypertension Qualified Code(s): I10 - Essential (primary) hypertension (3) Hyperkalemia Priority: Primary Status: Resolved (4) Acute kidney injury Priority: Primary Status: Resolved (5) Chronic systolic heart failure Priority: Secondary Status: Chronic Hospital course: Ms. Johnson is a 83 year old female past medical history of hypertension, CHF, hyperlipidemia and diabetes who presents from nursing facility due to hyperkalemia and acute kidney injury. Patient was managed with IV fluids, and discontinuation of of a spironolactone, patient received Kayexalate and insulin in the emergency room as well. Patient symptoms/labs abnormalities on presentation have resolved, and patient is hemodynamically stable to be discharge. - Time Spent with Patient Total time spent providing and/or coordinating discharge services: Time spent: Greater than 30 minutes (35) - Discharge Medications Prescriptions: Continue SitaGLIPtin [Januvia] 100 mg PO DAILY Ezetimibe [Zetia] 10 mg PO 2000 Carvedilol [Coreg] 25 mg PO BID Lisinopril [Zestril] 5 mg PO DAILY Aspirin [Lo-Dose Aspirin EC] 81 mg PO DAILY Ferrous Sulfate 325 mg PO DAILY #90 tablet Thiamine (B-1) [Vitamin B-1] 200 mg PO DAILY #180 tablet Ergocalciferol (VITAMIN D2) [Drisdol (50,000 Unit)] 50,000 unit PO QWEEK #15 capsule Atorvastatin [Lipitor] 40 mg PO 1999 Furosemide [Lasix] 20 mg PO DAILY Insulin Glargine,Hum.rec.anlog [Basaglar Kwikpen U-100] 10 unit SQ QAM Insulin Glargine,Hum.rec.anlog [Basaglar Kwikpen U-100] 15 unit SQ HS Insulin Regular, Human [Novolin R] 5 unit SQ TIDWM Metformin HCl 2,000 mg PO 1600 Acetaminophen [Tylenol] 650 mg PO TID PRN PRN Reason: Pain Loperamide HCl [Imodium A-D] 2 mg PO PRN PRN MDD 4 DOSES/24 HOURS PRN Reason: Loose Stool Melatonin [Melatin] 10 mg PO 1999 Sennosides/Docusate Sodium [Senna-S Tablet] 1 tab PO DAILY PRN PRN Reason: Constipation Cyanocobalamin (B-12) [Vitamin B12] 5,000 mcg PO DAILY GuaiFENesin/Dextromethorphan [Robitussin Cough-Chest Dm Liq] 5 ml PO QID PRN PRN Reason: Cough Non-Formulary Medication 1 lozenge PO Q2-3H PRN PRN Reason: Sore Throat Ondansetron HCl [Zofran] 4 mg PO Q6H PRN PRN Reason: NAUSEA/VOMITING Discontinued Spironolactone [Aldactone] 25 mg PO DAILY Home Medications: Aspirin [Lo-Dose Aspirin EC] 81 mg PO DAILY 08/24/17 [History] Carvedilol [Coreg] 25 mg PO BID 08/24/17 [History] Ezetimibe [Zetia] 10 mg PO 199908/24/17 [History] Lisinopril [Zestril] 5 mg PO DAILY 08/24/17 [History] SitaGLIPtin [Januvia] 100 mg PO DAILY 08/24/17 [History] Ergocalciferol (VITAMIN D2) [Drisdol (50,000 Unit)] 50,000 unit PO QWEEK #15 capsule 08/27/17 [Rx] Ferrous Sulfate 325 mg PO DAILY #90 tablet 08/27/17 [Rx] Thiamine (B-1) [Vitamin B-1] 200 mg PO DAILY #180 tablet 08/27/17 [Rx] Atorvastatin [Lipitor] 40 mg PO 199912/26/17 [History] Furosemide [Lasix] 20 mg PO DAILY 12/26/17 [History] Insulin Glargine,Hum.rec.anlog [Basaglar Kwikpen U-100] 10 unit SQ QAM 12/26/17 [History] Insulin Glargine,Hum.rec.anlog [Basaglar Kwikpen U-100] 15 unit SQ HS 12/26/17 [History] Insulin Regular, Human [Novolin R] 5 unit SQ TIDWM 12/26/17 [History] Metformin HCl 2,000 mg PO 1600 12/26/17 [History] Acetaminophen [Tylenol] 650 mg PO TID PRN 01/11/18 [History] Loperamide HCl [Imodium A-D] 2 mg PO PRN PRN MDD 4 DOSES/24 HOURS 01/11/18 [History] Melatonin [Melatin] 10 mg PO 199901/11/18 [History] Sennosides/Docusate Sodium [Senna-S Tablet] 1 tab PO DAILY PRN 01/16/18 [Histor y] Cyanocobalamin (B-12) [Vitamin B12] 5,000 mcg PO DAILY 06/11/18 [History] GuaiFENesin/Dextromethorphan [Robitussin Cough-Chest Dm Liq] 5 ml PO QID PRN 06/11/18 [History] Non-Formulary Medication 1 lozenge PO Q2-3H PRN 06/11/18 [History] Ondansetron HCl [Zofran] 4 mg PO Q6H PRN 06/11/18 [History] Allergies/Adverse Reactions: Allergy/AdvReac Type Severity Reaction Status Date / Time No Known Allergies Allergy Verified 06/11/18 17:39 Date of admission: 06/10/18 21:37 Primary care physician: PCP NONE Consults: 06/10/18 20:57 Consult to Nephrology [CONS] Stat Consulting Provider: Kidney Radha/ISA/VIANNEY/ALISA Reason for Consult: hyperkalemia, ckd Time Notified: 20:57 Call Completed: Yes 06/11/18 08:00 Consult to Meter Reading Clerk [CONS] Routine Reason for SW Consult: discharge planning 06/11/18 11:13 Consult to Physical Therapy [CONS] Routine Comment: Evaluate, develop and implement POC Reason for Consult: DEBILITY Does patient have active BEDREST order?: No Is patient medically & hemodynamically stable?: Yes - Constitutional Vitals: Temp Pulse Resp BP Pulse Ox 98.0 F 61 18 95/59 97 06/12/18 07:48 06/12/18 07:48 06/12/18 07:48 06/12/18 07:48 06/12/18 07:48 Exam: Vitals: Reviewed General: Alert and oriented x3. In no acute distress Skin: Normal color, no rash, no lesions. HEENT: EOM, pupils equal, round and reactive. Cardiovascular: RRR, normal S1 & S2, no rubs, murmurs or gallops. Lungs: CTA b/l, no wheezes or crackles. Abdomen: Obese, soft, non-tender, no rigidity. Extremities: No deformity, no edema or tenderness, no joint swelling or clu bbing. Neurological: Normal cognition and motor skills. Rest of the physical exam is non contributory - Patient Status Disposition: Transfer LTC Condition: Good Functional capacity at discharge: independent ambulation Overall status at discharge: patient is progressing back to baseline - Discharge Instructions Follow Up With: NONE,PCP [Primary Care Provider] - - Diet and Activity Activity: resume usual activities as tolerated Diet: low salt diet
--- NOTE | 2018-06-12 09:16 | Physician Discharge Referral ---
ExtendedCare Referral Info Transfer To: [facility] - Diagnosis (1) DMII (diabetes mellitus, type 2) Priority: Secondary Status: Chronic (2) HTN (hypertension) Priority: Secondary Status: Chronic (3) Hyperkalemia Priority: Primary Status: Resolved (4) Acute kidney injury Priority: Primary Status: Resolved (5) Chronic systolic heart failure Priority: Secondary Status: Chronic - Transfer Medications Home Medications: Aspirin [Lo-Dose Aspirin EC] 81 mg PO DAILY 08/24/17 [History] Carvedilol [Coreg] 25 mg PO BID 08/24/17 [History] Ezetimibe [Zetia] 10 mg PO 199908/24/17 [History] Lisinopril [Zestril] 5 mg PO DAILY 08/24/17 [History] SitaGLIPtin [Januvia] 100 mg PO DAILY 08/24/17 [History] Ergocalciferol (VITAMIN D2) [Drisdol (50,000 Unit)] 50,000 unit PO QWEEK #15 capsule 08/27/17 [Rx] Ferrous Sulfate 325 mg PO DAILY #90 tablet 08/27/17 [Rx] Thiamine (B-1) [Vitamin B-1] 200 mg PO DAILY #180 tablet 08/27/17 [Rx] Atorvastatin [Lipitor] 40 mg PO 199912/26/17 [History] Furosemide [Lasix] 20 mg PO DAILY 12/26/17 [History] Insulin Glargine,Hum.rec.anlog [Basaglar Kwikpen U-100] 10 unit SQ QAM 12/26/17 [History] Insulin Glargine,Hum.rec.anlog [Basaglar Kwikpen U-100] 15 unit SQ HS 12/26/17 [History] Insulin Regular, Human [Novolin R] 5 unit SQ TIDWM 12/26/17 [History] Metformin HCl 2,000 mg PO 1600 12/26/17 [History] Acetaminophen [Tylenol] 650 mg PO TID PRN 01/11/18 [History] Loperamide HCl [Imodium A-D] 2 mg PO PRN PRN MDD 4 DOSES/24 HOURS 01/11/18 [History] Melatonin [Melatin] 10 mg PO 199901/11/18 [History] Sennosides/Docusate Sodium [Senna-S Tablet] 1 tab PO DAILY PRN 01/16/18 [History] Cyanocobalamin (B-12) [Vitamin B12] 5,000 mcg PO DAILY 06/11/18 [History] GuaiFENesin/Dextromethorphan [Robitussin Cough-Chest Dm Liq] 5 ml PO QID PRN 06/11/18 [History] Non-Formulary Medication 1 lozenge PO Q2-3H PRN 06/11/18 [History] Ondansetron HCl [Zofran] 4 mg PO Q6H PRN 06/11/18 [History] Allergies/Adverse Reactions: Allergy/AdvReac Type Severity Reaction Status Date / Time No Known Allergies Allergy Verified 06/11/18 17:39 - Respiratory Orders None Smoking Cessation: Smoking cessation has been advised. For more information, call the [employer] Tobacco Quit Line at 8-722-PSUD-NOW. - Advance Directives Code Status: Full Code - Mobility Orders Ambulate - Rehabiliation Orders Rehab Potential: Fair Rehab Orders: Evaluation for Physical Therapy, Evaluation for Occupational Therapy CERTIFICATION: I certify that the transfer of the above named patient to an Extended Care Facility is necessary for the continuing treatment of the diagnosis listed. The above information is true and accurate reflection of patient's current condition. Confidential - Redisclosure prohibited without a patient's written consent.
[2018-06-12] MEDS: Sennosides/Docusate Sodium TABLET PO SCH (09:53)
[2018-06-12] MEDS: Cyanocobalamin (B-12) 1,000 MCG TABLET PO SCH (09:53)
[2018-06-12] MEDS: Thiamine (B-1) 100 MG TABLET PO SCH (09:54)
[2018-06-12] MEDS: Aspirin Enteric Coated 81 MG Tablet PO SCH (09:54)
[2018-06-12] MEDS: Cholecalciferol (D-3) 1,000 UNIT TABLET PO SCH (09:54)
[2018-06-12 12:13] VITALS: BP 118/75
--- NOTE | 2018-06-13 22:38 | Electrocardiograph Report ---
[place] [id number] Test Date: 2018-06-10 Pat Name: Nancy Johnson Department: [id number] Room: 2A26 Gender: F Account Manager Education: : 1935 Requested By: Chris Fletcher Order Number: [id number] Reading MD: La Nena Alcala Measurements Intervals [place] Rate: 69 P: 194 [place]: 313 QRS: -45 QRSD: 166 T: 115 QT: 488 QTc: 523 Interpretive Statements Sinus rhythm with 1st degree AV block Left bundle branch block Left axis deviation Electronically Signed On 06-13-2018 22:36:08 EDT by La Nena Alcala
== END 2018-06-12 13:49 ==
LOC: 2ANU 19:40 → EMEROOARM 19:40 → SUATTDRO 21:37 → 2ANU 22:30
PROVIDERS: ADMIT Internal Medicine; ATTEND Internal Medicine